=== PATIENT | female | born 1950 | race African-American/Black ===

== ENCOUNTER 2024-08-11 09:24 | Outpatient (AMB) | payer OTHER, SELFPAY ==
[2024-08-11 09:41] VITALS: BP 134/63; PULSE 86; O2SAT 96; BMI 38.4
--- NOTE | 2024-08-11 09:41 | MHC.OFFVIS ---
Vital Signs 08/11/24 09:41 Height 5 ft 2 in Weight 210 lb BMI 38.4 BP 134/63 Blood Pressure Location Lt brachial Position Sitting Pulse 86 Pulse Source Pulse Oximeter Pulse Oximetry (%) 96 Oxygen Delivery Method Room Air Intake Visit Reasons: Knee/ankle pain Dipper And Drier Required: Yes Dipper And Drier Services: Dipper And Drier Offered & Declined Dipper And Drier Name: Granddaughter lakshmi ramirez Information Interpreted: non-clinical & clinical Allergies morphine Allergy (Intermediate, Verified 08/11/24 09:43) Nausea pregabalin [From Lyrica] Allergy (Intermediate, Verified 08/11/24 09:43) Nausea PEANUT BUTTER Allergy (Mild, Uncoded 12/16/19 15:33) RASH DUST Allergy (Unknown, Uncoded 12/16/19 15:33) UNKNOWN HPI Comments Details: Gilda is very pleasant 74 years old female who presents in my office with complains on pain in bilateral knees and pain in the neck. Most of her problem is pain in the bilateral knees more on the left and less on the right. She reports that she is suffering from this condition more than 10 years. Walking standing aggravate her pain. She was diagnose with fibromyalgia and osteoarthritis. She was diagnose with fibromyalgia by Dr. Luisito Mcdonald. She was placed on opioids with this doctor however she missed an appointment and she was discharged from opioid program in that office. Because of her pain she can not sleep normally can not do activities of daily living can not take care of herself can not function normally. She is on permanent disability and retired. She needs walker or cane for ambulation. Cold applications weather changes in movements aggravate her pain and heat applications and oral medications make her pain better. Her pain is most severe in the morning and at night and less severe during the daytime. She reports her pain 9/10 to 10/10 today. In terms of tissue damage he describes her pain as hot burning, scalding, searing, dull, sore, hurting, aching, heavy, tiring, exhausting sensation. She had an MRI of the right knee but not the left knee. MRI of the right knee demonstrated meniscal tear. However patient complains on more pain on the left knee. She had very extensive course of physical therapy about 2 years ago. She was citing the improvement at that time. Now she stated that her pain is starting to get worse and she again is starting physical therapy and home exercise program. She received multiple intra-articular steroid injections into her knee and once she received something what she describes to me as platelet rich plasma injection. However she denies any help from those injections. Past medical history significant for hypertension, prediabetes, hemoglobin A1c equal to 6. She is suffering from COPD asthma and emphysema. Past surgical history: Cholecystectomy and uterine sling. Social history she denies smoking cigarettes drinking alcohol she admits caffeinated beverages but she denies recreational drugs. Review of Systems Const All systems reviewed & are unremarkable except as noted in HPI and below ENT Reports Normal hearing present Neuro Reports Normal hearing present, Denies Abnormal speech present, Denies confusion and Denies Sensory deficit (Neuro) Psych Denies confusion Physical Exam Vital Signs: Last Vital Signs Pulse 86 08/11/24 09:41 BP 134/63 08/11/24 09:41 Pulse Ox 96 08/11/24 09:41 Oxygen Delivery Method Room Air 08/11/24 09:41 BMI result Body Mass Index 38.4 Const General: no acute distress; No confusion Nutritional Appearance: obese morbidly obese Orientation/consciousness: patient oriented x3 and No confusion Eyes General: appearance normal, both eyes and all related structures Pupils: Equal, round and reactive pupils present EOM: EOMs intact bilaterally Neck Neck: Yes full ROM Chest Chest palpation & inspection: normal inspection of the chest Resp Effort & Inspection: normal respiratory effort, able to speak in complete sentences, normal respiratory pattern, no audible wheezes and no cough Cardio Jugular venous distension: no JVD GI Inspection: Yes normal to inspection Neuro General: patient oriented x3, gait normal and No confusion Cranial nerves: Yes CN's II-XII intact bilaterally, Yes Equal, round and reactive pupils present, Yes Normal hearing present and Yes Ability to bilaterally elevate shoulders present Speech: No Abnormal speech present Gait exam (Neuro): Normal gait present Motor exam (neuro): 5/5 motor strength present throughout Sensory Exam: No Sensory deficit (Neuro) Extrem Other: Good range of motion of bilateral knees. Tenderness on palpation on the surface of the left knee. On the exam medial and lateral collateral ligaments are stable, anterior and posterior drawers are negative. No crepitus on motion. General: No pedal edema Psych Speech and movement: Normal speech and movement present Affect: normal affect Attitude: cooperative Thought process: Normal thought process present Thought content: Normal thought content present Insight: Good insight present (Psych) Judgement: Good judgement present (Psych) Results Reviewed Results Reviewed: MRI right knee. Medial compartment motion partial limits evaluation but there is a complex tear involving the body and posterior horn of the medial meniscus, and associated with extrusion of the body, diffuse cartilage thinning, local areas of subchondral edema. Lateral compartment motion partly limits evaluation complex tear and willing body of the lateral meniscus. Diffuse cartilage thinning. No subchondral edema. Patellofemoral compartment or cartilage defects or subchondral edema. Tendons quadriceps patellar and popliteus tendons are intact. Ligaments anterior and posterior cruciate ligaments are intact. Medial collateral ligaments is intact. Intermediate signal intensity and mild irregularity [facility] of the proximal segment of the lateral collateral ligaments suggest sprint. Assessment & Plan Assessment & Plan (1) Osteoarthritis of knees, bilateral: Code(s): M17.0 - Bilateral primary osteoarthritis of knee Category: Medical (2) Bilateral knee pain: Code(s): M25.561 - Pain in right knee; M25.562 - Pain in left knee Category: Medical (3) Chronic pain syndrome: Code(s): G89.4 - Chronic pain syndrome Category: Medical Plan I will schedule this patient for diagnostic genicular nerve block on the left. With good results of the genicular nerve block I will perform radiofrequency ablation of the genicular nerves on the left. That could give patient 9 months to a year of pain relief. During this month she can engage with better exercise, diet, and request performance of total knee replacement. Coding Level of Care Code New Pt Level 3 (41482) Diagnoses Osteoarthritis of knees, bilateral M17.0 Bilateral knee pain M25.561; M25.562 Chronic pain syndrome G89.4
--- OUTSIDE RECORDS SUMMARY | 2024-08-11 09:56 | XMS_ITS ---
Author Name [facility] Organization Unknown History of Medication Use Medication Directions Dispensed Refills Start Date End Date Stat us diclofenac (VOLTAREN) 75 mg EC tablet Take 1 tablet (75 mg total) by mouth 2 (two) times a day if needed (pain). Do not crush, chew, or split. 06/23/2024 active predniSONE (DELTASONE) 20 mg tablet Take 60 mg PO daily for 3 days, then take 40 mg PO daily for 3 days, then 20 mg PO daily for 3 days, then stop 06/23/2024 active acetaminophen (Tylenol Arthritis Pain) 650 mg 8 hr tablet Take 1 tablet (650 mg total) by mouth every 8 (eight) hours if needed for mild pain. Do not crush, chew, or split. 06/02/2024 active albuterol 2.5 mg /3 mL (0.083 %) nebulizer solution Take 3 mL (2.5 mg total) by nebulization every 4 (four) hours if needed for wheezing. 06/02/2024 active albuterol HFA (Ventolin HFA) 90 mcg/actuation inhaler Inhale 2 puffs by mouth every 4 (four) hours if needed for wheezing. 06/02/2024 active sxyiueeoul-kxnzvssa-mvtm oterol (Breztri Aerosphere) 160-9-4.8 mcg/actuation HFA aerosol inhaler inhaler Inhale 2 puffs by mouth 2 (two) times a day. 06/02/2024 active omeprazole (PriLOSEC) [address] capsule TAKE 2 CAPSULES (40 MG TOTAL) BY MOUTH 1 (ONE) TIME EACH DAY. DO NOT CRUSH OR CHEW. 06/02/2024 active brinzolamide (AZOPT) 1 % ophthalmic suspension INSTILL 1 DROP INTO RIGHT EYE 3 TIMES A DAY 04/05/2024 active ketorolac (ACULAR) 0.5 % ophthalmic solution 1 drop 3 (three) times a day. 04/05/2024 active atorvastatin (LIPITOR) 10 mg tablet Take 1 tablet (10 mg total) by mouth 1 (one) time each day. 03/10/2024 active cholecalciferol (Vitamin D3) 50 mcg (2,000 unit) capsule Take 1 capsule (2,000 Units total) by mouth 1 (one) time each day. 03/10/2024 active amLODIPine (NORVASC) 5 mg tablet Take 1 tablet (5 mg total) by mouth 1 (one) time each day. 07/16/2023 active hydroCHLOROthiazide (MICROZIDE) 12.5 mg capsule Take 1 capsule (12.5 mg total) by mouth 1 (one) time each day. 07/16/2023 active valsartan (DIOVAN) 160 mg tablet Take 1 tablet (160 mg total) by mouth 1 (one) time each day. 07/16/2023 active loratadine (CLARITIN) 10 mg tablet Take 1 tablet (10 mg total) by mouth 1 (one) time each day. 06/03/2023 active sodium chloride (AYR) 0.65 % nasal drops Administer 1 spray into affected nostril(s). 03/20/2023 active EPINEPHrine (EpiPen 2-Jose Angel) 0.3 mg/0.3 mL injection Inject 0.3 mL (0.3 mg total) into the thigh. 02/28/2023 active latanoprost (XALATAN) 0.005 % ophthalmic solution Administer 1 drop into affected eye(s). 02/07/2023 active vibegron (Gemtesa) 75 mg tablet tablet Take 1 tablet (75 mg total) by mouth 1 (one) time each day. 02/07/2023 active ferrous sulfate 325 mg (65 mg iron) EC tablet Take 1 tablet (325 mg total) by mouth 1 (one) time each day. 07/04/2022 active hydrocortisone 2.5 % cream Apply to are bid as needed 10/16/2020 active LORazepam (ATIVAN) 1 mg tablet 1 tablet (1 mg total). 03/27/2018 active Problems Problem Status Onset Date Problem Type Date of Resoluti on Source Chronic obstructive pulmonary disease ([facility] V24, [facility] V28) active 2017-09-08 ProblemAct [facility] Fibromyalgia active 2012-08-17 ProblemAct [facility] Osteoporosis active 2023-05-26 ProblemAct [facility] Chronic kidney disease active 2024-05-04 ProblemAct [facility] Internal hemorrhoids active 2023-02-07 ProblemAct [facility] Chronic pain of both knees active 2023-02-07 ProblemAct [facility] Cervical neuropathy active 2023-10-01 ProblemAct [facility] Emphysema/COPD ([facility] V24, [facility] V28) active 2024-05-04 ProblemAct [facility] Rhinitis active 2023-06-03 ProblemAct [facility] Gait instability active 2023-01-09 ProblemAct C T_THS[facility] Gastroparesis active 2023-12-03 ProblemAct [facility] Obesity (BMI 30-39.9) active 2023-06-03 ProblemAct [facility] Glaucoma active 2024-05-04 ProblemAct [facility] Hepatic hemangioma active 2018-05-13 ProblemAct [facility] Primary osteoarthritis of right knee active 2023-01-09 ProblemAct [facility] Iron deficiency active 2023-12-[address] [facility] Cyst of left kidney active 2023-12-03 ProblemAct [facility] Mixed hyperlipidemia active 2023-08-23 ProblemAct [facility] Chronic pain of both shoulders active 2023-02-07 ProblemAct [facility] Tubular adenoma active 2023-02-[address] [facility] Chronic bilateral low back pain with bilateral sciatica active 2023-12-03 ProblemAct [facility] Severe obesity (BMI 35.0-39.9) with comorbidity ([facility] V24, [facility] V28) active 2020-08-15 ProblemAct [facility] Chronic pain of both hips active 2023-12-03 ProblemAct [facility] Pulmonary nodules active 2017-07-28 ProblemAct [facility] Anxiety active 2012-09-14 ProblemAct [facility] Right ovarian cyst active 2024-05-04 ProblemAct [facility] Overactive bladder active 2023-02-07 ProblemAct [facility] Primary osteoarthritis of left knee active 2020-08-15 ProblemAct [facility] Angiodysplasia of colon active 2023-02-07 ProblemAct [facility] Depression active 2024-05-04 ProblemAct [facility] Urge incontinence active 2023-02-07 ProblemAct [facility] Abdominal pain active 2023-06-03 ProblemAct [facility] Hypertension active 2024-05-04 ProblemAct [facility] Chronic neck pain active 2023-10-01 ProblemAct [facility] Asthma active 2024-05-04 ProblemAct [facility] Vitamin D deficiency active 2023-12-03 ProblemAct [facility] GERD (gastroesophageal reflux disease) active 2023-05-26 ProblemAct [facility] Diabetes mellitus without complication ([facility] V24, [facility] V28) active 2024-01-05 ProblemAct [facility] Immunizations Vaccine Date Source Lot Number Status Respiratory syncytial virus (RSV), unspecified 09/17/2023 [facility] [id number] completed Zoster recombinant (Shingrix ) 19yo and older 09/17/2023 [facility] [id number] completed Influenza trivalent, 0.5mL ( Fluzone High-dose) 65yo and older 02/07/2023 [facility]_THS[facility] [id number] comple chuy Influenza trivalent, 0.5mL ( Fluzone High-dose) 65yo and older 02/22/2022 [facility] [id number] comple chuy Pneumococcal polysaccharide 23 valent (Pneumovax 23) 2yo and older 04/26/2021 [facility] [id number] com pleted Influenza trivalent, 0.5mL ( Fluzone High-dose) 65yo and older 12/09/2019 [facility] [id number] comple chuy Pneumococcal conjugate 13 va lent (Prevnar 13, PCV13) 2mo and older 12/09/2019 [facility] [id number] complet ed Pneumococcal conjugate 13 va lent (Prevnar 13, PCV13) 2mo and older 02/10/2017 [facility] [id number] complet ed Influenza trivalent, with pr eservative (Fluzone; Afluria) 6mo and older 01/16/2016 [facility] [id number] completed Tdap Tetanus diptheria acell ular pertussis (Boostrix; Adacel) 7yo and older 07/07/2014 [facility] [id number] completed Pneumococcal polysaccharide 23 valent (Pneumovax 23) 2yo and older 01/23/2012 [facility] com pleted Influenza trivalent, with pr eservative (Fluzone; Afluria) 6mo and older 12/09/2011 [facility] completed
--- OUTSIDE RECORDS SUMMARY | 2024-08-11 09:56 | XMS_ITS | Encounter Summary ---
Author Organization [facility] Address [address] [place] [address] Care Team Providers Care Pool Finisher Name Role Phone Sherrie Valadez MD Primary Care Provider Reason for Visit * Reason Onset Date Comments Med Refill 07/07/2024 Zepbound w/ titr ation Encounter Details Date Type Department Care Team (Late st Contact Info) Description 07/07/2024 Telephone Bariatric Surgery - [place] [address] [place] [phone] La Ruth MD [address] [facility] [address] [place] [address] Med Refill (Zepbound w/ titration) Social History Tobacco Use Types Packs/Day Years Used Date Smoking Tobacco: Former Cigarettes Q uit: 08/03/2002 Smokeless Tobacco: Never Alcohol Use Standard Drinks/Week Comments No 0 (1 standard drink = 0.6 oz pur e alcohol) Comments Unknown Sex and Gender Information Value Date Recorded Sex Assigned at Not on file Legal Sex Female 2:32 PM EDT Gender Identity Not on file Sexual Orientation Not on file documented as of this encounter Progress Notes * Zaida Barrera - 07/07/2024 1:37 PM EDT Patient did well on Zepbound 2.5 mgs and would like a refill with titration. If appropriate, please send script for Zepbound 5 mgs to their pharmacy. The patient does have a follow up in 10/05/2024 documented in this encounter Plan of Treatment Upcoming Encounters Date Type Department Care Team (Late st Contact Info) Description 08/11/2024 12:30 PM EDT Treatment [facility] [address] [phone] Antoni Estrella, PHARMACY COORDINATOR 08/16/2024 11:30 AM EDT Treatment [facility] [address] [phone] Yvette Campuzano, PT 08/18/2024 10:15 AM EDT Office Visit Orthopedic Surgery [facility] 250 175 [facility] 250 [place] [phone] Renan Coles DPM [address] [address] 09/08/2024 8:30 AM EDT Office Visit Pulmonolgy [facility] 175 [facility] 200 [place] [phone] Annabelle Gross NP [address] [facility] 200 [place] [address] 10/05/2024 2:15 PM EDT Office Visit Bariatric Surgery [facility] [address] [phone] La Ruth MD [address] [address] 12/08/2024 9:30 AM EDT Office Visit Adult Medicine [address] [phone] Sherrie Valadez MD [address] [place] [address] 06/08/2025 8:00 AM EDT Office Visit Adult Medicine [facility] [address] [place] [phone] Sherrie Valadez MD 444 [facility] [place] [address] documented as of this encounter Visit Diagnoses Not on filedocumented in this encounter Additional Health Concerns Assessment Noted Time PHQ-9 Depression Total Score: 2 06/03/19 25 11:36 AM EST documented as of this encounter Care Teams Pool Finisher Relationship Specialty Start Date End Date Sherrie Valadez MD [address] [place] [address] PCP - General 12/24/22 documented as of this encounter
--- OUTSIDE RECORDS SUMMARY | 2024-08-11 09:56 | XMS_ITS | Encounter Summary ---
Author Organization [facility] Address [address] [place] [address] Care Team Providers Care Successfactors Consultant Name Role Phone Sherrie Valadez MD Primary Care Provider Reason for Visit * Reason Onset Date Comments Fitting for DME 08/02/2024 Encounter Details Date Type Department Care Team (Late st Contact Info) Description 08/02/2024 Telephone Adult Medicine [facility] [address] [place], [place] [phone] Sherrie Valadez MD [address] [place] [address] Fitting for DME Social History Tobacco Use Types Packs/Day Years [...] as of this encounter Progress Notes * Krystal Pascual - 08/02/2024 9:35 AM EDT DME REQUEST Name of Product: Medium gloves 2 box a month Pull up size medium 6 a day Hand held shower head Wipes 3 packs per month Bed pads 3 a day Specific information about product # Needed Pull up size medium 6 a day Hand held shower head Wipes 3 packs per month Bed pads 3 a day Reason patient is asking for this supply? Have you received this supply before? If yes , when?: Yes. v Have you discussed the need for this supply with a provider at a recent visit? If yes, with who andwhen? No When completed: Fax to other office/MD/pharmacy at fax # [phone] Have you told the patient it will take 7-10 days for completion of this request? Yes documented in this encounter Plan of Treatment Upcoming Encounters Date Type Department Care Team (Late st Contact Info) Description 08/11/2024 12:30 PM EDT Treatment [facility] [address] [phone] Antoni Estrella, LU 08/16/2024 11:30 AM EDT Treatment [facility] [address] [phone] Yvette Campuzano, PT 08/18/2024 10:15 AM EDT Office Visit Orthopedic Surgery [facility] 250 175 [facility] 250 [place] [phone] Renan Coles, DPM 175 [facility] 250 [place] [address] 09/08/2024 8:30 AM EDT Office Visit Pulmonolgy [facility] 175 [facility] 200 [place] [phone] Annabelle Gross NP 175 [facility] 200 [place] [address] 10/05/2024 2:15 PM EDT Office Visit Bariatric Surgery - [place] 175 [facility] 120 [place] [phone] La Ruth MD [address] [address] 12/08/2024 9:30 AM EDT Office Visit [address] [phone] Sherrie Valadez MD 444 [place], [place] 06/08/2025 8:00 AM EDT Office Visit [address] [phone] Sherrie Valadez MD [address] [place], [place] documented as of this encounter Visit Diagnoses Not on filedocumented in this encounter Additional Health Concerns Assessment Noted Time PHQ-9 Depression Total Score: 2 06/03/19 25 11:36 AM EST documented as of this encounter Care Teams Successfactors Consultant Relationship Specialty Start Date End Date Sherrie Valadez MD [address] [place], [place] PCP - General 12/24/22 documented as of this encounter
--- OUTSIDE RECORDS SUMMARY | 2024-08-11 09:56 | XMS_ITS | Encounter Summary ---
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 Name Role Phone Sherrie Valadez MD Primary Care Provider [phone] Reason for Visit * Consultation (Routine) - Authorized Specialty Diagnoses / Procedures Referred By Matthew schaffer Referred To Contact Physical Therapy Diagnoses Cervicalgia Chronic pain of both knees Sherrie Valadez MD [address] [place] [id number] Phone: tel: fax: Referral ID Status Reason Start Date Expiration Date Visits Requested Visits Authorized [id number] Authorized Specialty Services Required 06/02/2024 06/02/2025 20 20 Encounter Details Date Type Department Care Team (Late st Contact Info) Description 08/09/2024 9:00 AM EDT Treatment [facility] Outpatient Rehabilitation [facility] [address] [place] [address] Antoni Estrella PTA Cervicalgia (Primary Dx) Social History Tobacco Use Types Packs/Day Years [...] as of this encounter Progress Notes * Antoni Estrella PTA - 08/09/2024 9:00 AM EDT [facility] - Outpatient PHYSICAL THERAPY DAILY TREATMENT NOTE - OP Date: 08/09/2024 Visit Number: [id number] Patient Name: Gilda Saleem : 1950 Age: 74 y.o. Gender: female Diagnosis: ICD-10-CM ICD-9-CM 1. Cervicalgia M54.2 723.1 Date of Onset/Surgery: 07/15/2023 Referring Provider: Sherrie Valadez MD Insurance: Payor: [facility] MED[facility] / Plan: [facility] CARE / Product Type: *No Product type* / Patient Identified by: Antoni Estrella PTA Language: Pt. 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 Medications: Current Outpatient Medications on File Prior to Visit Medication Sig Dispense Refill acetaminophen (Tylenol Arthritis Pain) 650 mg 8 hr tablet Take 1 tablet (650 mg total) by mouth every 8 (eight) hours if needed for mild pain. Do not crush, chew, or split. 90 tablet 1 albuterol 2.5 mg /3 mL (0.083 %) nebulizer solution Take 3 mL (2.5 mg total) by nebulization every 4 (four) hours if needed for wheezing. 300 mL 1 albuterol HFA (Ventolin HFA) 90 mcg/actuation inhaler Inhale 2 puffs by mouth every 4 (four) hours if needed for wheezing. 36 g 5 amLODIPine (NORVASC) 5 mg tablet Take 1 tablet (5 mg total) by mouth 1 (one) time each day. 90 tablet 0 atorvastatin (LIPITOR) 10 mg tablet Take 1 tablet (10 mg total) by mouth 1 (one) time each day. 90 tablet 0 brinzolamide (AZOPT) 1 % ophthalmic suspension INSTILL 1 DROP INTO RIGHT EYE 3 TIMES A DAY nomokgwqgn-psocptru-mrlcdtccvt (Breztri Aerosphere) 160-9-4.8 mcg/actuation HFA aerosol inhaler inhaler Inhale 2 puffs by mouth 2 (two) times a day. 32.1 g 11 cholecalciferol (Vitamin D3) 50 mcg (2,000 unit) capsule Take 1 capsule (2,000 Units total) by mouth 1 (one) time each day. 90 each 3 diclofenac (VOLTAREN) 75 mg EC tablet Take 1 tablet (75 mg total) by mouth 2 (two) times a day if needed (pain). Do not crush, chew, or split. 90 tablet 0 EPINEPHrine (EpiPen 2-Jose Angel) 0.3 mg/0.3 mL injection Inject 0.3 mL (0.3 mg total) into the thigh. ferrous sulfate 325 mg (65 mg iron) EC tablet Take 1 tablet (325 mg total) by mouth 1 (one) time each day. hydroCHLOROthiazide (MICROZIDE) 12.5 mg capsule Take 1 capsule (12.5 mg total) by mouth 1 (one) time each day. 90 capsule 0 hydrocortisone 2.5 % cream Apply to are bid as needed ketorolac (ACULAR) 0.5 % ophthalmic solution 1 drop 3 (three) times a day. latanoprost (XALATAN) 0.005 % ophthalmic solution Administer 1 drop into affected eye(s). loratadine (CLARITIN) 10 mg tablet Take 1 tablet (10 mg total) by mouth 1 (one) time each day. LORazepam (ATIVAN) 1 mg tablet 1 tablet (1 mg total). omeprazole (PriLOSEC) [address] capsule TAKE 2 CAPSULES (40 MG TOTAL) BY MOUTH 1 (ONE) TIME EACH DAY. DO NOT CRUSH OR CHEW. 180 capsule 0 predniSONE (DELTASONE) 20 mg tablet Take 60 mg PO daily for 3 days, then take 40 mg PO daily for 3 days, then 20 mg PO daily for 3 days, then stop 18 tablet 0 sodium chloride (AYR) 0.65 % nasal drops Administer 1 spray into affected nostril(s). [] tirzepatide, weight loss, (Zepbound) 5 mg/0.5 mL injection Inject 0.5 mL (5 mg total) under the skin every 7 (seven) days for 28 days. 2 mL 0 valsartan (DIOVAN) 160 mg tablet Take 1 tablet (160 mg total) by mouth 1 (one) time each day. 90 tablet 0 vibegron (Gemtesa) 75 mg tablet tablet Take 1 tablet (75 mg total) by mouth 1 (one) time each day. No current facility-administered medications on file prior to visit. Allergies: is allergic to dog dander, doxycycline, morphine, peanut, pollen extracts, and pregabalin. Precautions: none Fall risk: No SUBJECTIVE Subjective Report: Patient reports back of neck still bothering her. Chart Reviewed: Yes Pain: 10/07 after manual therapy today. Over weekend 01/07 due to doing a lot of mothers day prepping. TREATMENT INTERVENTION: UBE 2 mins forward/backwards L1.5 Standing Scapula rowing 10 reps with [place] Band Horizontal Abd with [place] Tband 10 rps Wall slides flexion 5 sec hold 2 x 10 reps Manual Therapy STM B UT and neck. ASSESSMENT/Response to Treatment Good response post manual therapy. Patient Education: Education provided: yes Education Provided To: Patient utilizing Explanation mode(s) of education Response to Education: Verbal Understanding PLAN POC Development/Review: No Change in the Plan of Care; Participants: Patient Interventions Time Entry: Modalities: Therapeutic procedures: Manual Therapy Time Entry: 10 Therapeutic Exercise Time Entry: 20 Total Treatment Time: 30 mins Documentation completed by Antoni Estrella PTA documented in this encounter Plan of Treatment Upcoming Encounters Date Type Department Care Team (Late st Contact Info) Description 08/11/2024 12:30 PM EDT Treatment [address] [phone] Antoni Estrella PTA 08/16/2024 11:[address] [facility] [address] [phone] Yvette Campuzano PT 08/18/2024 10:15 AM EDT Office Visit Orthopedic Surgery [place] [address] [phone] Renan Coles DPM [address] [address] 09/08/2024 8:30 AM EDT Office Visit Pulmonolgy - [place] [facility] [address] [place] [phone] Annabelle Gross NP 175 [facility] [address] [place] [address] 10/05/2024 2:15 PM EDT Office Visit Bariatric Surgery - [place] [facility] [address] [place] [address] La Ruth MD 175 [facility] [address] [place] [address] 12/08/2024 9:30 AM EDT Office Visit Adult [address] [phone] Sherrie Valadez MD [address] [place], [place] 06/08/2025 8:00 AM EDT Office Visit Adult [address] [phone] Sherrie Valadez MD [address] [place], [place] documented as of this encounter Visit Diagnoses Diagnosis Cervicalgia- Primary documented in this encounter Additional Health Concerns Assessment Noted Time PHQ-9 Depression Total Score: 2 06/03/19 25 11:36 AM EST documented as of this encounter Care Teams Box 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
--- OUTSIDE RECORDS SUMMARY | 2024-08-11 09:56 | XMS_ITS | Clinical Summary ---
Author Organization [facility] Address [address] [place] [address] Care Team Providers Care Psychologist Personnel Name Role Phone Sherrie Fields MD Primary Care Provider Allergies Active Allergy Reactions Criticality Noted Date Comments Dog Dander 05/26/2023 Other reaction(s): sneezing Doxycycline Nausea Only 01/05/2024 Morphine Itching 05/27/2017 Peanut Hives 12/23/2017 Pollen Extracts 05/26/2023 Other reaction(s): itch Pregabalin 05/27/2017 Heartracing Medications EPINEPHrine (EpiPen 2-Jose Angel) 0.3 mg/0.3 mL injection Inject 0.3 mL (0.3 mg total) into the thigh. 02/29/20 23 Active ferrous sulfate 325 mg (65 mg iron) EC tablet Take 1 tablet (325 mg total) by mouth 1 (one) time each day. 07/05/19 23 Active hydrocortisone 2.5 % cream Apply to are bid as needed 10/17/19 21 Active latanoprost (XALATAN) 0.005 % ophthalmic solution Administer 1 drop into affected eye(s). 02/08/20 23 Active LORazepam (ATIVAN) 1 mg tablet 1 tablet (1 mg total). 03/27/20 18 Active sodium chloride (AYR) 0.65 % nasal drops Administer 1 spray into affected nostril(s). 03/20/20 23 Active vibegron (Gemtesa) 75 mg tablet tablet Take 1 tablet (75 mg total) by mouth 1 (one) time each day. 02/08/20 23 Active loratadine (CLARITIN) 10 mg tablet Take 1 tablet (10 mg total) by mouth 1 (one) time each day. 06/03/19 24 Active atorvastatin (LIPITOR) 10 mg tablet Take 1 tablet (10 mg total) by mouth 1 (one) time each day. 90 tablet 03/10/20 24 Active cholecalciferol (Vitamin D3) 50 mcg (2,000 unit) capsule Take 1 capsule (2,000 Units total) by mouth 1 (one) time each day. 90 each 3 03/10/20 24 Active ketorolac (ACULAR) 0.5 % ophthalmic solution 1 drop 3 (three) times a day. 04/05/19 25 Active brinzolamide (AZOPT) 1 % ophthalmic suspension INSTILL 1 DROP INTO RIGHT EYE 3 TIMES A DAY 04/05/19 25 Active omeprazole (PriLOSEC) [address] capsule TAKE 2 CAPSULES (40 MG TOTAL) BY MOUTH 1 (ONE) TIME EACH DAY. DO NOT CRUSH OR CHEW. 180 capsule 06/03/19 25 025 Active budesonide-glyc opyr-formoterol (Breztri Aerosphere) 160-9-4.8 mcg/actuation HFA aerosol inhaler inhalerIndicati ons:Chronic obstructive pulmonary disease with acute lower respiratory infection (CMS/HCC V24, CMS/HCC V28) Inhale 2 puffs by mouth 2 (two) times a day. 32.1 g 11 06/03/19 25 026 Active albuterol 2.5 mg /3 mL (0.083 %) nebulizer solutionIndicat ions:Chronic obstructive pulmonary disease with acute lower respiratory infection (CMS/HCC V24, CMS/HCC V28) Take 3 mL (2.5 mg total) by nebulization every 4 (four) hours if needed for wheezing. 300 mL 1 06/03/19 25 025 Active albuterol HFA (Ventolin HFA) 90 mcg/actuation inhalerIndicati ons:Chronic obstructive pulmonary disease with acute lower respiratory infection ([facility] V24, [facility] V28) Inhale 2 puffs by mouth every 4 (four) hours if needed for wheezing. 36 g 5 06/03/19 25 025 Active acetaminophen (Tylenol Arthritis Pain) 650 mg 8 hr tablet Take 1 tablet (650 mg total) by mouth every 8 (eight) hours if needed for mild pain. Do not crush, chew, or split. 90 tablet 1 06/03/19 25 025 Active predniSONE (DELTASONE) 20 mg tablet Take 60 mg PO daily for 3 days, then take 40 mg PO daily for 3 days, then 20 mg PO daily for 3 days, then stop 18 tablet 06/24/19 25 Active diclofenac (VOLTAREN) 75 mg EC tablet Take 1 tablet (75 mg total) by mouth 2 (two) times a day if needed (pain). Do not crush, chew, or split. 90 tablet 06/24/19 25 Active amLODIPine (NORVASC) 5 mg tablet Take 1 tablet (5 mg total) by mouth 1 (one) time each day. 90 tablet 07/21/19 25 Active hydroCHLOROthia zide (MICROZIDE) 12.5 mg capsule Take 1 capsule (12.5 mg total) by mouth 1 (one) time each day. 90 capsule 07/21/19 25 Active valsartan (DIOVAN) 160 mg tablet Take 1 tablet (160 mg total) by mouth 1 (one) time each day. 90 tablet 07/21/19 25 Active amLODIPine (NORVASC) 5 mg tablet Take 1 tablet (5 mg total) by mouth 1 (one) time each day. 07/16/19 24 025 Discontinu ed(Reorder ) hydroCHLOROthia zide (MICROZIDE) 12.5 mg capsule Take 1 capsule (12.5 mg total) by mouth 1 (one) time each day. 07/16/19 24 025 Discontinu ed(Reorder ) valsartan (DIOVAN) 160 mg tablet Take 1 tablet (160 mg total) by mouth 1 (one) time each day. 07/16/19 24 025 Discontinu ed(Reorder ) tirzepatide, weight loss, (Zepbound) 5 mg/0.5 mL injection Inject 0.5 mL (5 mg total) under the skin every 7 (seven) days for 28 days. 2 mL 07/10/19 25 025 Active Problems Problem Noted Date Diagnosed Date Asthma 05/04/2024 Chronic kidney disease 05/04/2024 Depression 05/04/2024 Glaucoma 05/04/2024 Hypertension 05/04/2024 Right ovarian cyst 05/04/2024 Emphysema/COPD ([facility] V24, [facility] V28) 2024 Diabetes mellitus without co mplication ([facility] V24, [facility] V28) 01/05/2024 Cyst of left kidney 12/03/2023 Gastroparesis 12/03/2023 Iron deficiency 12/03/2023 Vitamin D deficiency 12/03/2023 Chronic bilateral low back pain with bilateral s ciatica 12/03/2023 Chronic pain of both hips 12/03/2023 Chronic neck pain 10/01/2023 Cervical neuropathy 10/01/2023 Mixed hyperlipidemia 08/23/2023 Rhinitis 06/03/2023 Obesity (BMI 30-39.9) 06/03/2023 Abdominal pain 06/03/2023 Essential hypertension, benign 05/26/2023 GERD (gastroesophageal reflux disease) Osteoporosis 05/26/2023 Angiodysplasia of colon 02/07/2023 Chronic pain of both knees 02/07/2023 Chronic pain of both shoulders 02/07/2023 Internal hemorrhoids 02/07/2023 Overactive bladder 02/07/2023 Tubular adenoma 02/07/2023 Urge incontinence 02/07/2023 Gait instability 01/09/2023 Primary osteoarthritis of right knee 01/09/2023 Primary osteoarthritis of left knee 08/15/2020 Severe obesity (BMI 35.0-39. 9) with comorbidity ([facility] V24, [facility] V28) 08/15/2020 Hepatic hemangioma 05/13/2018 Chronic obstructive pulmonar y disease ([facility] V24, [facility] V28) 09/08/2017 Pulmonary nodules 07/28/2017 Overview (05/26/2023): CT Chest 07/28/18: Stable Pulmonary Nodules. No further workup needed. Anxiety 09/14/2012 Overview (05/26/2023): On chronic lorazepam Fibromyalgia 08/17/2012 Overview (05/26/2023): Lyirca caused palpitations. Gabapentin caused nausea Encounters Date Type Department Care Team Description 08/09/2024 9:00 AM EDT Treatment [address] [phone] Antoni Estrella PTA Cervicalgia (Primary Dx) 08/04/2024 9:30 AM EDT Treatment [address] [phone] Antoni Estrella PTA Cervicalgia (Primary Dx) 08/02/2024 11:00 AM EDT Treatment [address] [phone] Yvette Campuzano, PT Cervicalgia (Primary Dx) 08/02/2024 Telephone Adult Medicine [address] [phone] Sherrie Fields MD Fitting for DME 07/30/2024 12:30 PM EDT Treatment [address] [phone] Antoni Estrella PTA Cervicalgia (Primary Dx) 07/28/2024 9:30 AM EDT Treatment [address] [phone] Antoni Estrella PTA Cervicalgia (Primary Dx) 07/14/2024 12:30 PM EDT Evaluation [address] [phone] Yvette Campuzano, PT Cervicalgia (Primary Dx); Chronic pain of both knees 07/07/2024 Telephone Bariatric Surgery - [place] [address] [place] [phone] La Ruth MD Med Refill (Zepbound w/ titration) 07/07/2024 Telephone Orthopedic Surgery - [place] [address] [place] [phone] Reyna Girard NP Referral 06/30/2024 9:01 AM EDT - 06/30/2024 11:59 PM EDT Hospital Encounter Radiology Department - [address] [phone] Other chronic pain; Chronic pain of right knee Discharge Disposition: Home or Self Care 06/30/2024 9:01 AM EDT - 06/30/2024 11:59 PM EDT Hospital Encounter Radiology Department - [address] [phone] Other chronic pain; Pain in left knee Discharge Disposition: Home or Self Care 06/23/2024 10:30 AM EDT Office Visit Adult Medicine [address] [phone] Sherrie Fields MD Chronic pain of right knee (Primary Dx); Chronic pain of left knee; Hyperlipidemia, unspecified hyperlipidemia type; Gastroesophageal reflux disease, unspecified whether esophagitis present 06/21/2024 Telephone Adult Medicine [address] [phone] Sherrie Fields MD Knee Pain 06/02/2024 1:00 PM EST Office Visit Pulmonolgy - [place] [address] [facility] [address] [place] [phone] Annabelle Gross NP Chronic obstructive pulmonary disease with acute lower respiratory infection (CMS/HCC V24, CMS/HCC V28) (Primary Dx); Pulmonary nodules; Morbid obesity (CMS/HCC V24, CMS/HCC V28) 06/02/2024 10:00 AM EST Office Visit Adult Medicine [address], [place] [phone] Sherrie Fields MD Routine general medical examination at a health care facility (Primary Dx); Diabetes mellitus without complication ([facility] V24, [facility] V28); Gastroesophageal reflux disease, unspecified whether esophagitis present; Cervicalgia; Chronic pain of both knees 06/01/2024 11:00 AM EST Office Visit Bariatric Surgery - [place] [facility] [address] [place] [address] La Ruth MD Class 3 severe obesity due to excess calories with serious comorbidity and body mass index (BMI) of 40.0 to 44.9 in adult ([facility] V24, [facility] V28) (Primary Dx); Essential hypertension, benign; Mixed hyperlipidemia; Primary osteoarthritis of left knee; Primary osteoarthritis of right knee; Elevated hemoglobin A1c; Fatty liver 05/25/2024 Telephone Adult Medicine [facility] [address] [place] [phone] Sherrie Fields MD Forms/questionnaires 05/14/2024 Telephone Gastroenterology [address] [facility] [address] [place] [address] Maria Antonia Aguirre MA from Last 3 Months Immunizations Name Administration Dates Next Due Influenza trivalent, 0.5mL ( Fluzone High-dose) 65yo and older 02/07/2023,02/22/2022,12/09/2019 Influenza trivalent, with pr eservative (Fluzone; Afluria) 6mo and older 01/16/2016,12/09/2011 Pneumococcal conjugate 13 va lent (Prevnar 13, PCV13) 2mo and older 12/09/2019,02/10/2017 Pneumococcal polysaccharide 23 valent (Pneumovax 23) 2yo and older 04/26/2021,01/23/2012 Respiratory syncytial virus (RSV), unspecified 09/17/2023 Tdap Tetanus diptheria acell ular pertussis (Boostrix; Adacel) 7yo and older 07/07/2014 Zoster recombinant (Shingrix ) 19yo and older 09/17/2023 Surgical History Surgery Date Site/Laterality Comments CHOLECYSTECTOMY PROCEDURE: HISTORICAL CHOLECYSTECTOMY LEG SURGERY PROCEDURE: HISTORICAL LEG SURGERY; COMMENT: removal of benign tumor TUBAL LIGATION PROCEDURE: HISTORICAL TUBAL LIGATION Medical History Medical History Date Comments Historical Medical DX DX:Emphyse ma Osteoporosis DX:Osteoporosis Type II or unspecified type diabetes mellitus without mention of complication, uncontrolled DX:Type II or unspecified t ype diabetes mellitus without mention of complication, uncontrolled Essential hypertension, benign D X:Essential hypertension, benign GERD (gastroesophageal reflux disease) DX:GERD (gastroesophageal reflux disease) Osteoarthritis of left knee 08/15/2020 DX:O steoarthritis of left knee Family History Medical History Relation Name Comments Hypertension Father Heart attack Mother Breast cancer Other niece dx 41s Diabetes Sister Arthritis Son Relation Name Status Comments Father Mother Other niece dx 41s Alive Sister Son Social History Tobacco Use Types Packs/Day Years Used Date Smoking Tobacco: Former Cigarettes Q uit: 08/03/2002 Smokeless Tobacco: Never Tobacco Cessation:Counseling Given: Not Answered Alcohol Use Standard Drinks/Week Comments No 0 (1 standard drink = 0.6 oz pur e alcohol) Comments Unknown Sex and Gender Information Value Date Recorded Sex Assigned at Not on file Legal Sex Female 2:32 PM EDT Gender Identity Not on file Sexual Orientation Not on file Obstetrics History Last Filed Vital Signs Vital Sign Reading Time Taken Comments Blood Pressure 134/76 06/23/2024 10:36 AM EDT Pulse 87 06/23/2024 10:36 AM EDT Temperature 36.5 ??C (97.7 ??F) 06/23/2024 10:36 AM E DT Respiratory Rate 12 06/23/2024 10:36 AM EDT Oxygen Saturation 97% 06/02/2024 1:06 PM EST Inhaled Oxygen Concentration - - Weight 97.1 kg (214 lb) 07/21/2024 10:20 AM EDT Height 154.9 cm (5' 0.98 ) 07/21/2024 10:20 AM E DT Body Mass Index 40.46 07/21/2024 10:20 AM EDT Plan of Treatment Upcoming Encounters Date Type Department Care Team (Late st Contact Info) Description 08/11/2024 12:30 PM EDT Treatment [address] [phone] Antoni Estrella PTA 08/16/2024 11:30 AM EDT Treatment [facility] [place] [address] [facility] [address] [place] [phone] Yvette Campuzano, PT 08/18/2024 10:15 AM EDT Office Visit Orthopedic Surgery - [place] [address] [facility] [address] [place] [phone] Renan Coles, DPM [address] [facility] [address] [place] [address] 09/08/2024 8:30 AM EDT Office Visit Pulmonolgy - [place] [facility] [address] [place] [phone] Annabelle Gross NP 175 [facility] [address] [place] [address] 10/05/2024 2:15 PM EDT Office Visit Bariatric Surgery - [place] [address] [facility] [address] [place] [phone] La Ruth MD 175 [facility] [address] [place] [address] 12/08/2024 9:30 AM EDT Office Visit Adult Medicine [address] [phone] Sherrie Fields MD [address] [place] [phone] 06/08/2025 8:00 AM EDT Office Visit Adult Medicine [address] [phone] Sherrie Fields MD [address] [place] [address] Health Maintenance Due Date Last Done Comments RSV Immunization Adult Patients (1 - Risk 60-74 years 1-dose series) 2012 09/17/2023 Diabetes: Annual Foot Exam 04/08/2019 04/08/2018 COVID-19 Vaccine (3 - Pfizer risk series) 09/19/2020 08/22/2020, 08/01/2020 Diabetes: Annual Retina Eye Exam 02/13/2022 02/13/2021 Social Influencers of Health Screening 12/06/2022 Zoster Vaccines (2 of 2) 11/12/2023 09/17/2023 Diabetes: Annual Urine Albumin-Creatinine Ratio (uACR) 06/02/2024 06/03/2023, 05/26/2023 DTaP,Tdap,and Td Vaccines (2 - Td or Tdap) 07/07/2024 07/07/2014 Diabetes: Blood Sugar Control Test (HGBA1C) 10/12/2024 04/14/2024, 12/04/2023, 12/04/2023, Additional history exists Influenza Vaccine (Season Ended) 2024 02/07/2023, 02/22/2022, 12/09/2019, Additional history exists Diabetes: Annual GFR (Glomerular Filtration Rate) 12/03/2024 12/04/2023, 12/04/2023, 12/04/2023, Additional history exists Hypertension/CHF/CAD Annual BMP Blood Test 12/03/2024 12/04/2023, 12/04/2023, 01/06/2022 Breast Cancer Screening 12/11/2024 12/12/19 23, 11/07/2021, 12/13/2019, Additional history exists Depression Screening 06/02/2025 06/02/2024, 06/03/2023, 06/03/2023 Falls Risk Assessment 06/02/2025 06/02/2024, 024 Medicare Annual Wellness Visit 06/02/2025 06/02/2024 Cholesterol Screening (Lipid Panel) 04/14/2029 04/14/2024, 05/26/2023, 05/26/2023 Colorectal Cancer Screening: Colonoscopy 11/14/2032 11/14/2022, 11/14/2022 Osteoporosis Screening (Bone Density Screening) 12/09/2032 12/09/2022, 11/07/2021 Hepatitis C Screening Completed 04/14/2018 Pneumococcal Vaccine: 50+ Years Completed 04/26/2021, 12/09/2019, 02/10/2017, Additional history exists RSV Immunization Patients Under 20 months Aged Out 09/17/2023 No longer eligible based on patient's age to complete this topic HIB Vaccines Aged Out No longer eligi ble based on patient's age to complete this topic HPV Vaccines Aged Out No longer eligi ble based on patient's age to complete this topic Hepatitis A Vaccines Aged Out No long er eligible based on patient's age to complete this topic Hepatitis B Vaccines Aged Out No long er eligible based on patient's age to complete this topic IPV Vaccines Aged Out No longer eligi ble based on patient's age to complete this topic MMR Vaccines Aged Out No longer eligi ble based on patient's age to complete this topic Meningococcal ACWY Vaccine Aged Out N o longer eligible based on patient's age to complete this topic Meningococcal B Vaccine Aged Out No l onger eligible based on patient's age to complete this topic Varicella Vaccines Aged Out No longer eligible based on patient's age to complete this topic Procedures Procedure Name Priority Date/Time Associated Diagnosis Comments MR KNEE WO CONTRAST LEFT Routine 06/30/2024 10:17 AM EDT Other chronic pain Pain in left knee MR KNEE WO CONTRAST RIGHT Routine 06/30/2024 9:55 AM EDT Other chronic pain Chronic pain of right knee HEMOGLOBIN A1C Routine 04/14/2024 9:37 AM EST Type 2 diabetes mellitus without complication, without long-term current use of insulin ([facility] V24, [facility] V28) LIPID PANEL WITH REFLEX TO DIRECT LDL Routine 04/14/2024 9:37 AM EST Hypercholesterolemia ANNUAL BMP BLOOD TEST Routine 12/04/2023 FALLS RISK ASSESSMENT Routine 10/01/2023 DEPRESSION SCREENING Routine 06/03/2023 URINE ALBUMIN CREATININE RATIO Routine 05/26/2023 NIKOLAY SCREENING DIGITAL Routine 12/11/2022 11:03 AM EDT Encounter for screening mammogram for malignant neoplasm of breast [facility] DEXA AXIAL SKELETON Routine 12/09/2022 7:43 AM EDT Age-related osteoporosis without current pathological fracture COLONOSCOPY Routine 11/14/2022 DIABETES EYE EXAM Routine 02/13/2021 HEPATITIS C SCREENING Routine 04/14/2018 DIABETES FOOT EXAM Routine 04/08/2018 from Last 3 Months or Most Recently Relevant to Health Maintenance Results * MR Knee wo Contrast Left (06/30/2024 10:17 AM EDT) Anatomical Region Laterality Modality Lower Extremities, Knee Left Magnetic Resonance 07/06/2024 8:31 AM EDT Impressions 07/06/2024 8:44 AM EDT Evaluation partially limited by motion. 1. ??Complex tear of the medial meniscus associated with extrusion. 2. ??Probable tear of the posterior horn of the lateral meniscus. 3. ??Findings suggesting sprain of the lateral collateral ligament. 4. ??Degenerative chondrosis in the medial compartment. -------- FINAL REPORT -------- Dictated By: Laura Hudson Dictated Date: 07/06/2024 08:31 ET Assigned Physician: Laura Hudson Reviewed and Electronically Signed By: Laura Hudson Signed Date: 07/06/2024 08:44 ET Workstation ID: [id number] Transcribed By: Self Edit Transcribed Date: 07/06/2024 08:42 ET Narrative 07/06/2024 8:44 AM EDT MR KNEE WO CONTRAST LEFT TECHNIQUE: Multisequence MRI of the left knee without intravenous contrast. COMPARISON: Radiographs of the knee on April 29, 2024 HISTORY: chronic pain L knee FINDINGS: Motion degrades many sequences. Medial Compartment: Irregularity of the body and posterior horn of the medial meniscus, reflecting complex tear, associated with extrusion of the body. Diffuse cartilage thinning, with focal area of subchondral edema in the medial femoral condyle. ??Prominent marginal osteophytes. Lateral Compartment: Minimal irregularity of the posterior horn of the lateral meniscus likely reflecting tear. No full-thickness cartilage defect. ??No subchondral edema. Patellofemoral Compartment: No full-thickness cartilage defect. ??No subchondral edema. Tendons: Quadriceps, patellar and popliteus tendons are intact. Ligaments: Anterior and posterior cruciate ligaments are intact. Medial collateral ligament is intact. ??Intermediate signal intensity and mild irregularity of the proximal segment of the lateral collateral ligament suggests sprain. Bones: No fracture. ??Degenerative cystic changes in the intercondylar area of the femur. Joint: Small joint effusion. ??Small Britton's cyst. Soft tissues: Mild soft tissue edema in the anterior knee, more pronounced along the midline. Procedure Note Laura Hudson MD - 07/06/2024 MR KNEE WO CONTRAST LEFT TECHNIQUE: Multisequence MRI of the left knee without intravenouscontrast. COMPARISON: Radiographs of the knee on April 29, 2024 HISTORY: chronic pain L knee FINDINGS: Motion degrades many sequences. Medial Compartment: Irregularity of the body and posterior horn of themedial meniscus, reflecting complex tear, associated with extrusion of thebody. Diffuse cartilage thinning, with focal area of subchondral edema inthe medial femoral condyle. Prominent marginal osteophytes. Lateral Compartment: Minimal irregularity of the posterior horn of thelateral meniscus likely reflecting tear. No full-thickness cartilagedefect. No subchondral edema. Patellofemoral Compartment: No full-thickness cartilage defect. Nosubchondral edema. Tendons: Quadriceps, patellar and popliteus tendons are intact. Ligaments: Anterior and posterior cruciate ligaments are intact. Medialcollateral ligament is intact. Intermediate signal intensity and mildirregularity of the proximal segment of the lateral collateral ligamentsuggests sprain. Bones: No fracture. Degenerative cystic changes in the intercondylar areaof the femur. Joint: Small joint effusion. Small Britton's cyst. Soft tissues: Mild soft tissue edema in the anterior knee, more pronouncedalong the midline. IMPRESSION: Evaluation partially limited by motion. 1. Complex tear of the medial meniscus associated with extrusion. 2. Probable tear of the posterior horn of the lateral meniscus. 3. Findings suggesting sprain of the lateral collateral ligament. 4. Degenerative chondrosis in the medial compartment. -------- FINAL REPORT -------- Dictated By: Laura Hudson Dictated Date: 07/06/2024 08:31 ET Assigned Physician: Laura Hudson Reviewed and Electronically Signed By: Laura Hudson Signed Date: 07/06/2024 08:44 ET Workstation ID: [id number] Transcribed By: Self Edit Transcribed Date: 07/06/2024 08:42 ET us Sherrie Fields MD IMG MRI PROCEDURES Final Re sult * MR Knee wo Contrast Right (06/30/2024 9:55 AM EDT) Anatomical Region Laterality Modality Lower Extremities, Knee Right Magnetic Resonance 07/06/2024 8:12 AM EDT Impressions 07/06/2024 8:43 AM EDT Evaluation partially limited by motion. 1. ??Complex tear of the medial meniscus associated with extrusion. 2. ??Complex tear of the body of the lateral meniscus. 3. ??Findings suggesting sprain of the lateral collateral ligament. 4. ??Degenerative chondrosis, more pronounced in the medial compartment. -------- FINAL REPORT -------- Dictated By: Laura Hudson Dictated Date: 07/06/2024 08:12 ET Assigned Physician: Laura Hudson Reviewed and Electronically Signed By: Laura Hudson Signed Date: 07/06/2024 08:43 ET Workstation ID: [id number] Transcribed By: Self Edit Transcribed Date: 07/06/2024 08:31 ET Narrative 07/06/2024 8:43 AM EDT MR KNEE WO CONTRAST RIGHT TECHNIQUE: Multisequence MRI of the right knee without intravenous contrast. COMPARISON: Radiographs of the knee on April 29, 2024 HISTORY: chronic pain right knee FINDINGS: Motion degrades many sequences. Medial Compartment: Motion partially limits evaluation, but there is complex tear involving the body and posterior horn of the medial meniscus, and associated with extrusion of the body. Diffuse cartilage thinning, with focal areas of subchondral edema. Lateral Compartment: Motion partially limits evaluation, but there is complex tear involving the body of the lateral meniscus. Diffuse cartilage thinning. ??No subchondral edema. Patellofemoral Compartment: No cartilage defect or subchondral edema. Tendons: Quadriceps, patellar and popliteus tendons are intact. Ligaments: Anterior and posterior cruciate ligaments are intact. Medial collateral ligament is intact. ??Intermediate signal intensity and mild irregularity of the proximal segment of the lateral collateral ligament suggests sprain. Bones: No fracture Joint: No joint effusion. ??Small Britton's cyst. Soft tissues: Mild soft tissue edema in the anterior knee, more pronounced along the midline. Procedure Note Laura Hudson MD - 07/06/2024 MR KNEE WO CONTRAST RIGHT TECHNIQUE: Multisequence MRI of the right knee without intravenouscontrast. COMPARISON: Radiographs of the knee on April 29, 2024 HISTORY: chronic pain right knee FINDINGS: Motion degrades many sequences. Medial Compartment: Motion partially limits evaluation, but there iscomplex tear involving the body and posterior horn of the medial meniscus,and associated with extrusion of the body. Diffuse cartilage thinning,with focal areas of subchondral edema. Lateral Compartment: Motion partially limits evaluation, but there iscomplex tear involving the body of the lateral meniscus. Diffuse cartilagethinning. No subchondral edema. Patellofemoral Compartment: No cartilage defect or subchondral edema. Tendons: Quadriceps, patellar and popliteus tendons are intact. Ligaments: Anterior and posterior cruciate ligaments are intact. Medialcollateral ligament is intact. Intermediate signal intensity and mildirregularity of the proximal segment of the lateral collateral ligamentsuggests sprain. Bones: No fracture Joint: No joint effusion. Small Britton's cyst. Soft tissues: Mild soft tissue edema in the anterior knee, more pronouncedalong the midline. IMPRESSION: Evaluation partially limited by motion. 1. Complex tear of the medial meniscus associated with extrusion. 2. Complex tear of the body of the lateral meniscus. 3. Findings suggesting sprain of the lateral collateral ligament. 4. 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 -------- FINAL REPORT -------- Dictated By: Laura Hudson Dictated Date: 07/06/2024 08:12 ET Assigned Physician: Laura Hudson Reviewed and Electronically Signed By: Laura Hudson Signed Date: 07/06/2024 08:43 ET Workstation ID: [id number] Transcribed By: Self Edit Transcribed Date: 07/06/2024 08:31 ET Sherrie Fields MD IM MRI PROCEDURES Final Re sult * Lipid panel with reflex to direct LDL (04/14/2024 9:37 AM EST) Cholesterol 134 0 - 200 mg/dL LAB CHEMISTRY METHOD 04/14/2024 12:14 PM EST [facility] Triglycerides 80 0 - 150 mg/dL LAB CHEMISTRY METHOD 04/14/2024 12:14 PM EST [facility] HDL 56 >=40 mg/dL LAB CHEMISTRY METHOD 04/14/2024 12:14 PM EST [facility] LDL Calculated 62 0 - 100 mg/dL LAB CHEMISTRY METHOD 04/14/2024 12:14 PM EST [facility] VLDL Cholesterol Dayron 16 mg/dL LAB CHEMISTRY METHOD 04/14/2024 12:14 PM EST [facility] Non HDL Chol. (LDL+VLDL) 78 <145 mg/dL LAB CHEMISTRY METHOD 04/14/2024 12:14 PM EST [facility] Chol/HDL Ratio 2.4 0.0 - 4.4 LAB CHEMISTRY METHOD 04/14/2024 12:14 PM EST [facility] Blood Venous blood specimen / Unknown Venipuncture / Unknown 04/14/2024 9:37 AM EST 04/14/2024 9:37 AM EST us Sherrie Fields MD LAB BLOOD ORDERABLES Final Result [facility] [address] [place] [address], [place] [phone] * Hemoglobin A1c (04/14/2024 9:37 AM EST) Hemoglobin A1C 6.0 <6.5 % LAB CHEMISTRY METHOD 04/14/2024 2:06 PM EST [facility] Mean Bld Glu Estim. 126 mg/dL LAB CHEMISTRY METHOD 04/14/2024 2:06 PM EST [facility] Blood Venous blood specimen / Unknown Venipuncture / Unknown 04/14/2024 9:37 AM EST 04/14/2024 9:37 AM EST Sherrie Fields MD LAB BLOOD ORDERABLES Final Result [facility] [address] [place] [address], * Annual BMP Blood Test (12/04/2023) Pathologist [facility] Annual BMP Blood Test abstracted Historical Provider HEALTH MAINTENANCE Final Result * Falls Risk Assessment (10/01/2023) [facility] Falls Risk Assessment abstracted Result [facility] Historical Provider HEALTH MAINTENANCE Final Result * Depression Screening (06/03/2023) Pathologist [facility] Depression Screening abstracted Result [facility] Historical Provider HEALTH MAINTENANCE Final Result * Urine Albumin Creatinine Ratio (05/26/2023) Pathologist [facility] Urine Albumin Creatinine Ratio abstracted Historical Provider HEALTH MAINTENANCE Final Result * NIKOLAY SCREENING DIGITAL (12/11/2022 11:03 AM EDT) Anatomical Region Laterality Modality Mammography 12/06/2022 2:29 PM EDT Narrative 12/11/2022 11:03 AM EDT [facility] Diagnostic Imaging Department [address], [place] [id number] Patient: ??GILDA PEARL ?/Age/Sex: 1950 - 72 - F Unit#: ??[id number] ? Location/Status: ??SPDIMAM/REG CLI ? Mnemonic/Ordering Site: ??DIGSC/SPMAM Ordering Physician: ??MIKE FIELDS MD [facility] Screening Digital - 12/06/22 - 1501 Report Status:Signed EXAM: [facility] Screening Digital EXAM DATE AND TIME: 12/06/2022 3:01 PM HISTORY: ??Routine screening mammogram COMPARISON: ??11/07/2021, 12/13/2019 TECHNIQUE: Bilateral digital breast tomosynthesis was performed in the CC and MLO projections. Computer aided detection with GraphOn 3D 3.1 was employed. TISSUE DENSITY: b. There are scattered areas of fibroglandular density. FINDINGS: No suspicious masses, grouped microcalcifications, or areas of architectural distortion are seen. The skin and vascularity are unremarkable. IMPRESSION: Stable mammographic appearance of the breasts. ??No evidence of malignancy is seen. A negative mammogram in the presence of a clinically suspicious palpable abnormality does not preclude the possibility of malignancy or alter the indications for biopsy. BI-RADS: ??Category 1: Negative RECOMMENDATION(S): 1: Routine screening mammogram BILATERAL in 1 year. Dictating Physician: ??HERON VALENCIA MD Electronically Signed by: ??HERON VALENCIA MD Dic Date/Time: ??12/11/22 110 Sign date/Time: ??12/11/22 110 Procedure Note Heron Valencia MD - 05/06/2023 [facility] Diagnostic Imaging Department [address] [place] [id number] Patient: GILDA PEARL /Age/Sex: 1950 - 72 - F Unit#: [id number] Location/Status: SPDIMAM/REG CLI Mnemonic/Ordering Site: [facility] Ordering Physician: MIKE FIELDS MD [facility] Screening Digital - 12/06/22 - 1501 Report Status:Signed EXAM: [facility] Screening Digital EXAM DATE AND TIME: 12/06/2022 3:01 PM HISTORY: Routine screening mammogram COMPARISON: 11/07/2021, 12/13/2019 TECHNIQUE: Bilateral digital breast tomosynthesis was performed in the CCand MLO projections. Computer aided detection with Bi02 MedicalD Waspit AI 3D 3.1was employed. TISSUE DENSITY: b. There are scattered areas of fibroglandular density. FINDINGS: No suspicious masses, grouped microcalcifications, or areas ofarchitectural distortion are seen. The skin and vascularity are unremarkable. IMPRESSION: Stable mammographic appearance of the breasts. No evidence of malignancyis seen. A negative mammogram in the presence of a clinically suspicious palpable abnormality does not preclude the possibility of malignancy or alter the indications for biopsy. BI-RADS: Category 1: Negative RECOMMENDATION(S): 1: Routine screening mammogram BILATERAL in 1 year. Dictating Physician: HERON VALENCIA MD Electronically Signed by: HERON VALENCIA MD Dic Date/Time: 12/11/22 110 Sign date/Time: 12/11/221102 us Mike Fields MD IMG BI PROCEDURES Final Result * [facility] DEXA AXIAL SKELETON (12/09/2022 7:43 AM EDT) Anatomical Region Laterality Modality Mammography 12/06/2022 2:32 PM EDT Narrative 12/09/2022 7:43 AM EDT [facility] Diagnostic Imaging Department [address] [place] [id number] Patient: ??GILDA PEARL ?/Age/Sex: 1950 - 72 - F Unit#: ??[id number] ? Location/Status: ??SPDIMAM/REG CLI ? Mnemonic/Ordering Site: ??MAMDEXAAX/SPMAM Ordering Physician: ??MIKE FIELDS MD [facility] Dexa Axial Skeleton - 12/06/22 - 2912 Report Status:Signed HISTORY: ??The patient is a 72-year-old postmenopausal female with clinical concern for metabolic bone disease. FINDINGS: ??Dual energy x-ray absorptiometry of the lumbar spine and femurs is performed. The mean bone mineral density at L3-4 is 0.866 gm/cm2 which is 72% of that of young normals and 77% of that of age matched controls. This yields a T- score of -2.8 and a Z-score of -2.1 which is diagnostic of osteoporosis. The mean bone mineral density of the femurs bilaterally is 0.935 gm/cm2 which is 93% of that of young normals and 103% of that of age matched controls. ??This yields a T-score of -0.6 and a Z-score of 0.2 and there is therefore no evidence of osteoporosis or osteopenia here. IMPRESSION: 1. Osteoporosis. 2. FRAX analysis yields a 10-year probability of major osteoporotic fracture of 7.0% and a 10-year probability of hip fracture of 0.8%. Code 27652 Dictating Physician: ??DUANE BEAN MD Electronically Signed by: ??DUANE BEAN MD Dic Date/Time: ??12/09/2242 Sign date/Time: ??12/09/2243 Procedure Note Duane Bean MD - 05/06/2023 [facility] Diagnostic Imaging Department [address] [place] [address] Patient: PEARLGILDA D.O.B./Age/Sex: 1950 - 72 - F Unit#: [id number] Location/Status: [facility] Ordering Physician: MIKE FIELDS MD [facility] Dexa Axial Skeleton - 12/06/22 - 3939 Report Status:Signed HISTORY: The patient is a 72-year-old postmenopausal female withclinical concern for metabolic bone disease. FINDINGS: Dual energy x-ray absorptiometry of the lumbar spine and femursis performed. The mean bone mineral density at L3-4 is 0.866 gm/cm2 which is72% of that of young normals and 77% of that of age matched controls. This yieldsa T- score of -2.8 and a Z-score of -2.1 which is diagnostic of osteoporosis. The mean bone mineral density of the femurs bilaterally is 0.935 gm/vm9fpfmi is 93% of that of young normals and 103% of that of age matched controls.This yields a T-score of -0.6 and a Z-score of 0.2 and there is therefore noevidence of osteoporosis or osteopenia here. IMPRESSION: 1. Osteoporosis. 2. FRAX analysis yields a 10-year probability of major osteoporoticfracture of 7.0% and a 10-year probability of hip fracture of 0.8%. Code 99997 Dictating Physician: DUANE BEAN MD Electronically Signed by: DUANE BEAN MD Dic Date/Time: 12/09/2242 Sign date/Time: 12/09/22742 Result [facility] Mike Fields MD IMG BI PROCEDURES Final Result * Colonoscopy (11/14/2022) [facility] Colonoscopy no interpretation , abstracted Anatomical Region Laterality Modality Other [facility] Provider HEALTH MAINTENANCE Final Result * Diabetes Eye Exam (02/13/2021) [facility] Diabetes: Annual Retina Eye Exam abstracted Result [facility] Provider HEALTH MAINTENANCE Final Result * Hepatitis C Screening (04/14/2018) [facility] Hepatitis C Screening abstracted Result [facility] Provider HEALTH MAINTENANCE Final Result * Diabetes Foot Exam (04/08/2018) [facility] Diabetes: Annual Foot Exam abstracted Result [facility] Provider HEALTH MAINTENANCE Final Result from Last 3 Months or Most Recently Relevant to Health Maintenance Insurance [employer] Member Subscriber Plan / Payer (Ef fective 2021-Present) Name:Gilda Pearl Relation to Subscriber:Self Name:Gilda Pearl Payer ID:[id number] Group ID:[id number] Type:Not on file Address: [place] [address] [place] [place] [phone] Care Teams Psychologist Personnel Relationship Specialty Start Date End Date Sherrie Fields MD [address] [place] [address] PCP - General 12/24/22
== END 2024-08-11 09:57 | disposition home or self-care (01) ==
LOC: HO.PMC 09:24
PROVIDERS: PCP Internal Medicine; Referring Provider Internal Medicine; Visit Provider Anesthesiology
DX: M17.0 Bilateral primary osteoarthritis of knee (principal); M25.561 Pain in right knee; M25.562 Pain in left knee; G89.4 Chronic pain syndrome
CPT/HCPCS: 99203

== ENCOUNTER → 2024-08-11 09:24 | Outpatient (BNVA) | payer OTHER, SELFPAY | PROVIDERS: PCP Internal Medicine; Referring Provider Internal Medicine; Visit Provider Anesthesiology | DX: M17.0 Bilateral primary osteoarthritis of knee (principal); M25.561 Pain in right knee; M25.562 Pain in left knee; G89.4 Chronic pain syndrome | CPT/HCPCS: 99202 ==

== ENCOUNTER 2024-09-03 07:13 | Day surgery (SDC) | payer OTHER, SELFPAY ==
[2024-09-01 15:03] VITALS: BMI 38.4
[2024-09-01 15:23] VITALS: BMI 38.2
--- NOTE | ~2024-09-03 | FL_ITS ---
EXAMINATION: FL GUIDANCE ONLY HISTORY: left genicular nerve block COMPARISON: None available. TECHNIQUE: Fluoroscopy time: 23.6 seconds. Cumulative Dose: 3.5564 mGy. DAP: 1.2528 mGym2 Images: 1. FINDINGS: A single fluoroscopic spot film of the knee in the lateral projection demonstrates needles in the distal thigh and proximal calf. FL/FL guidance in OR IMPRESSION: Fluoroscopy during procedure. Please see procedure report for additional information. Electronically signed by: Eliazar Araujo MD 09/03/2024 09:22 AM EDT
[2024-09-03 07:27] VITALS: BMI 39.4
[2024-09-03 07:46] VITALS: BP 138/64; PULSE 83; RESP 16; TEMP 36.6; O2SAT 95
[2024-09-03] MEDS: Lactated Ringers 1,000 ML 50 ML IVCONT (07:54)
[2024-09-03] MEDS: Albuterol Sulfate (0.083%) 2.5 MG/3 ML VIAL.NEB INHALE (07:56)
--- NOTE | 2024-09-03 08:08 | P.HPSUR_ITS ---
Pre-Procedural Eval Section A - 24 Hr Update-Section A only Date of Service: 09/03/24 The patient is an INPATIENT: No Changes since office visit: Yes Patient answered all questions The patient has been examined within 24 hours of the surgical procedure. The History & Physical has been completed within 30 days and I have reviewed it.: No Section B - Complete if H&P > 30 days Chief Complaint: Bilateral primary osteoarthritis of knee Details of Present Illness: as above Relevant Family History (Specify if Yes): No Relevant Social History: None Present Medications: None Medical History: No relevant PMH History of Previous Operations: No relevant previous surgery Allergies: Allergies Allergy/AdvReac Type Severity Reaction Status Date / Time morphine Allergy Intermediate Nausea Verified 08/11/24 09:43 pregabalin [From Lyrica] Allergy Intermediate Nausea Verified 08/11/24 09:43 PEANUT BUTTER Allergy Mild RASH Uncoded 12/16/19 15:33 DUST Allergy Unknown UNKNOWN Uncoded 12/16/19 15:33 Review of Systems Sugical H&P ROS: Negative: Cardiovascular, Respiratory, Neurological, Psychiatric, Hem-Onc, Allergic/Immunologic, Gastrointestinal, Genitourinary, Mus culoskeletal, Integumentary, Endocrine and Eyes/Ears/Nose/Throat and Yes, Specify: Constitution (morbid obesity) Exam Surgical H&P Exam: Normal: HEENT, Normal: Heart, Normal: Lungs, Normal: Extremities, Normal: Abdomen, Normal: Skin and Normal: Neurological Plan Diagnosis/Plan: Unchanged I have reviewed the history and physical and performed a pertinent physical examination on my patient. No changes have occurred unless specified. Time Spent With Patient Time: Total time managing care of this patient today __10__ minutes.
--- NOTE | 2024-09-03 08:20 | P.CONAN_ITS ---
[facility] Active Problems Active Problems: All Active Problems Chronic pain syndrome (Acute) Bilateral knee pain (Acute) Osteoarthritis of knees, bilateral (Acute) Past Medical History Medical History Glaucoma Anxiety Fibromyalgia Osteoarthritis OAB (overactive bladder) Osteoporosis GERD (gastroesophageal reflux disease) Rhinitis Neck pain Bilateral hip pain Low back pain Vitamin D deficiency Low iron Gastroparesis COPD (chronic obstructive pulmonary disease) Glaucoma Depression CKD (chronic kidney disease) Asthma HTN (hypertension) HLD (hyperlipidemia) Diabetes Chronic knee pain Cognitive capacity: normal Functional capacity: independent ambulation Patient : No Family History Family history of problems with anesthesia: No Surgical History Surgical History (Updated 09/03/24 @ 07:26 by Ligia Valdovinos RN) H/O eye surgery H/O bilateral cataract extraction History of bladder surgery Hx of cholecystectomy History of Problems with Anesthesia: No Social History Social History Are you a primary patient care director to a significant other at home: No Do you presently have visiting nurse or other home services: Yes (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 ) Patient Tobacco Use Status: Former Tobacco user Tobacco use type: Cigarette Smoked in Last 30 Days: No Use of substances other than those prescribed or required for medical reasons: No Are you DNR?: No Advance Directives: Yes Advance Directives Information Provided: No Advance Directives on File: Yes Advance Directives Date on File: 10/21/08 Patient : No : No Poor oral hygiene: No Meds Allergies Allergy/AdvReac Type Severity Reaction Status Date / Time morphine Allergy Intermediate Nausea Verified 08/11/24 09:43 pregabalin [From Lyrica] Allergy Intermediate Nausea Verified 08/11/24 09:43 PEANUT BUTTER Allergy Mild RASH Uncoded 12/16/19 15:33 DUST Allergy Unknown UNKNOWN Uncoded 12/16/19 15:33 Active Medications: Current Medications Lactated Ringer's (Lr) 1,000 mls @ 50 mls/hr IVCONT .Q20H DIONNA Last Admin: 09/03/24 07:54 Dose: 50 mls/hr Home Medications ?Medication ?Instructions ?Recorded ?Confirmed ?Last Taken ?Type acetaminophen 650 mg 650 mg PO Q8H PRN mild pain 09/01/24 09/01/24 Unknown History tablet,extended release albuterol sulfate 90 mcg/actuation inhalation 09/01/24 Unknown History aerosol inhaler albuterol sulfate 90 mcg/actuation inhalation 09/01/24 Unknown History aerosol inhaler (Ventolin HFA) amlodipine 5 mg tablet 5 mg PO DAILY 09/01/24 09/03/24 09/03/24 History atorvastatin 10 mg tablet 10 mg PO DAILY 09/01/24 09/01/24 Unknown History brimonidine 0.1 % eye drops 1 drp ophthalmic-Right TID 09/01/24 09/01/24 Unknown History brinzolamide 1 % eye 1 drp ophthalmic-Right TID 09/01/24 09/01/24 Unknown History drops,suspension budesonide 160 mcg-glycopyr 9 1 inh inhalation DAILY 09/01/24 09/03/24 09/03/24 History mcg-formot 4.8 mcg/actuation HFA inhaler (Breztri Aerosphere) diclofenac sodium 50 mg 50 mg PO BID 09/01/24 09/01/24 Unknown History tablet,delayed release hydrochlorothiazide 12.5 mg capsule 12.5 mg PO DAILY 09/01/24 09/01/24 Unknown History latanoprost 0.005 % eye drops 1 drp ophthalmic (eye) QPM 09/01/24 09/01/24 Unknown History lorazepam 1 mg tablet 1 mg PO TID PRN Anxiety 09/01/24 09/03/24 09/03/24 02:00 History tirzepatide (weight loss) 5 mg/0.5 5 mg subcut QWEEK 09/01/24 09/01/24 08/18/24 History mL subcutaneous pen injector (Zepbound) valsartan 160 mg tablet 160 mg PO DAILY 09/01/24 09/01/24 Unknown History vibegron 75 mg tablet (Gemtesa) 75 mg PO DAILY 09/01/24 09/01/24 Unknown History Exam Exam Date and Time: 09/03/2024 Height,Weight and Vital Signs: Height 5 ft 2 in Weight 97.6 kg Last Vital Signs Temp 97.9 F 09/03/24 07:46 Pulse 83 09/03/24 07:46 Resp 16 09/03/24 07:46 BP 138/64 09/03/24 07:46 Pulse Ox 95 09/03/24 07:46 O2 Del Method Room Air 09/03/24 07:46 Airway Mallampati Class: III TM Dist: >3cm Loose/Missing/Broken Teeth: Yes Heart: rrr Lungs: ta Assessment and Plan Assessment Anesthesia Assessment: Anesthesia Plan Discussed Final Anesthetic Review Family History of Problems with Anesthesia: No History of Problems with Anesthesia: No NPO: Yes ASA Class: III Final Preanesthetic Review: No Changes in Pt Med Stat, Meds/Allgs Chart Reviewed, Consent Obtained/Reviewed and Anes Risks/Benef Reviewed Patient Risk: Intermediate Procedure Risk: Low Anesthetic Plan Anesthetic Plan: MAC: Disposition: Standard PACU
[2024-09-03 09:00] VITALS: BP 134/67; PULSE 81; RESP 20; TEMP 36.8; O2SAT 97
--- NOTE | 2024-09-03 09:00 | PM.OP ---
Brief Operative Note Date of Service: 09/03/24 Pre-op diagnosis: Left knee pain, left knee osteoarthritis. Post-op diagnosis: same Procedure: Diagnostic genicular nerve block left knee. Surgeon: Adan Sierra MD Anesthesia: MAC Was an Engineer System Administrator used for this Procedure?: No Estimated blood loss (mL): 1 Condition: stable Disposition: PACU
--- NOTE | 2024-09-03 09:01 | W.PM.OPN ---
Operative Note Operative Note Date of Service: 09/03/24 Narrative: Left diagnostic genicular nerve block Informed consent was thoroughly explained to the patient with the help of the [facility] alternative dispute resolution mediator. Risks and benefits including bleeding infection risks were explained to the patient. After that the patient was brought to the operating room and positioned supine on the operating table with the gel roll under her left knee. Her left knee anterior surface was prepped with ChloraPrep and draped with sterile self adhesive utility towels. C-arm was brought over the operating field and sq picture of the left knee was demonstrated on the screen. The point of interest were delineated as the confluence of the medial diaphysis of the silhouette of the tibial bone with metaphysis of the tibial bone, confluence of the silhouette of the diaphysis of the femur on the medial side with the metaphysis of the same bone on the medial side as well as confluence of the silhouette of the diaphysis of the femur on the lateral side with the metaphysis of the same bone on the lateral side. The projection of the point of interest to the skin were injected with mixture of local anesthetic lidocaine 2% and ropivacaine 0.5% one-to-one after that three 22 gauge 3-1/2 inch needles were inserted through the skin wheals and they were advanced to were the silhouette of the bone. When on the lateral view the tips of the needles were positioned in the center of the shafts of the both femur and tibia with both condyles thoroughly superimposed 1 over the another on lateral view injection of the treatment medicine containing ropivacaine 0.5% 1.5 mL was injected into each needle. Upon completion of the injection needles were removed, sterile Band-Aids were applied. The patient tolerated the procedure well.
[2024-09-03 09:15] VITALS: BP 149/73; PULSE 75; RESP 20; O2SAT 96
[2024-09-03] MEDS: oxyCODONE HCl Immed Release 5 MG TABLET PO (09:15)
[2024-09-03] MEDS: Acetaminophen 325 MG TABLET 650 MG PO (09:25)
[2024-09-03 09:30] VITALS: BP 146/62; PULSE 78; RESP 20; TEMP 36.4; O2SAT 96
== END 2024-09-03 09:56 | disposition home or self-care (01) ==
PROVIDERS: PCP Internal Medicine; Visit Provider Anesthesiology
PROC: (CPT 64454; principal; 2024-09-03 08:40)
DX: M17.12 Unilateral primary osteoarthritis, left knee (principal); G89.4 Chronic pain syndrome; M25.562 Pain in left knee; R26.2 Difficulty in walking, not elsewhere classified; M79.7 Fibromyalgia; I10 Essential (primary) hypertension; R73.03 Prediabetes; J44.9 Chronic obstructive pulmonary disease, unspecified; Z96.0 Presence of urogenital implants; Z99.89 Dependence on other enabling machines and devices; Z88.5 Allergy status to narcotic agent; Z88.8 Allergy status to other drugs, medicaments and biological substances; Z91.010 Allergy to peanuts; Z90.49 Acquired absence of other specified parts of digestive tract
CPT/HCPCS: 64454; J2003; J2704; J2795; Q9967

== ENCOUNTER → 2024-09-03 07:13 | Outpatient (BNV) | payer OTHER, SELFPAY | PROVIDERS: PCP Internal Medicine; Visit Provider Anesthesiology | DX: M25.562 Pain in left knee (principal); M17.12 Unilateral primary osteoarthritis, left knee | CPT/HCPCS: 64454 ==

== ENCOUNTER 2024-09-15 15:18 | Outpatient (AMB) | payer OTHER, SELFPAY ==
[2024-09-15 15:22] VITALS: BP 154/63; PULSE 85; RESP 16; O2SAT 97; BMI 39.9
--- NOTE | 2024-09-15 15:22 | A.OFFVIS_ITS ---
Vital Signs 09/15/24 15:22 Height 5 ft 1 in Weight 211 lb BMI 39.9 BP 154/63 H Blood Pressure Location Lt brachial Position Sitting Respiration 16 Pulse 85 Pulse Source Pulse Oximeter Pulse Oximetry (%) 97 Oxygen Delivery Method Room Air Intake Visit Reasons: S/p (L) Genicular Nerve Block 09/03/24 Gas Stove Servicer Helper Required: No Accompanied by: TELESALES SPECIALIST Allergies morphine Allergy (Intermediate, Verified 09/15/24 15:24) Nausea pregabalin (From Lyrica) Allergy (Intermediate, Verified 09/15/24 15:24) Nausea PEANUT BUTTER Allergy (Mild, Uncoded 12/16/19 15:33) RASH DUST Allergy (Unknown, Uncoded 12/16/19 15:33) UNKNOWN HPI Comments Details: The patient is a 74-year-old female presenting with chronic left knee pain. She received a diagnostic genicular nerve block on September 03, 2024, resulting in complete temporary pain relief followed by significant pain reduction over several hours. This intervention was intended to evaluate the potential longer- term benefits of nerve ablation. Reports 100% pain relief for at least 3 hours after the procedure followed by 90% pain relief for an additional 4 hours after the procedure. She discontinued Zepbound due to a packaging error but plans to restart the medication following a new prescription. This medication is part of her obesity management strategy. The patient denies the use of anticoagulants. - Onset and Timing: Chronic, with periodic exacerbations and relief post- procedure on September 03, 2024. - Quality and Character: Achieved 100% relief initially, followed by 90% relief for several hours. - Primary Location: Left knee. - Areas of Radiation: Not discussed. - Exacerbating Factors: Decline in procedure effect over time. - Relieving Factors: Diagnostic nerve block and potential future nerve ablation. - Effect on Activities: Limits physical activity and contributes to swelling concerns, impacting mobility. - Affect: Pain reduction post-procedure improved mood and reported activity capability. - Analgesia: Achieved 100% pain relief for three hours post-procedure, 90% relief afterward; aims for sustained relief via nerve ablation. - Adverse Effects: None reported from current pain management. - Activities of Daily Living: Pain restricts physical activity, contributing to edema and obesity management challenges. - Aberrant Drug Related Behaviors: None reported. [facility] Medical History Glaucoma Anxiety Fibromyalgia Osteoarthritis OAB (overactive bladder) Osteoporosis GERD (gastroesophageal reflux disease) Rhinitis Neck pain Bilateral hip pain Low back pain Vitamin D deficiency Low iron Gastroparesis COPD (chronic obstructive pulmonary disease) Glaucoma Depression CKD (chronic kidney disease) Asthma HTN (hypertension) HLD (hyperlipidemia) Diabetes Chronic knee pain Surgical History (Updated 09/03/24 @ 07:26 by Ligia Valdovinos RN) H/O eye surgery H/O bilateral cataract extraction History of bladder surgery Hx of cholecystectomy Social History Are you a primary customer care assistant to a significant other at home: No Do you presently have visiting nurse or other home services: Yes (TELESALES SPECIALIST daily ) Patient Tobacco Use Status: Former Tobacco user Tobacco use type: Cigarette Advance Directives Date on File: 10/21/08 Review of Systems Const Details: - Musculoskeletal: Reports chronic left knee pain. - Cardiovascular: Reports foot swelling. - General: Denies the use of aspirin or anticoagulants. Physical Exam Vital Signs: Last Vital Signs Pulse 85 09/15/24 15:22 Resp 16 09/15/24 15:22 BP 154/63 H 09/15/24 15:22 Pulse Ox 97 09/15/24 15:22 Oxygen Delivery Method Room Air 09/15/24 15:22 BMI result Body Mass Index 39.9 General: awake, alert, oriented. Answers questions appropriately. Fully engaged in examination. Skin: warm, dry, intact HEENT: Normocephalic. Hearing intact. Cardiac: External chest normal in appearance. Respiratory: No cough, audible wheezing or stridor. Abdomen: without gross distension. MS: No obvious swelling or deformities. Able to transition from sit to stand unassisted. Ambulates with bilaterally normal heel strike and toe off Neurological: Oriented to person, place, time and situation. Thought process intact. Psychiatric: Appropriate mood and affect. Good judgment and insight. Results Reviewed Results Reviewed: MRI right knee. Medial compartment motion partial limits evaluation but there is a complex tear involving the body and posterior horn of the medial meniscus, and associated with extrusion of the body, diffuse cartilage thinning, local areas of subchondral edema. Lateral compartment motion partly limits evaluation complex tear and willing body of the lateral meniscus. Diffuse cartilage thinning. No subchondral edema. Patellofemoral compartment or cartilage defects or subchondral edema. Tendons quadriceps patellar and popliteus tendons are intact. Ligaments anterior and posterior cruciate ligaments are intact. Medial collateral ligaments is intact. Intermediate signal intensity and mild irregularity [facility] of the proximal segment of the lateral collateral ligaments suggest sprint. Assessment & Plan Assessment & Plan (1) Osteoarthritis of knees, bilateral: Code(s): M17.0 - Bilateral primary osteoarthritis of knee Category: Medical (2) Bilateral knee pain: Code(s): M25.561 - Pain in right knee; M25.562 - Pain in left knee Category: Medical (3) Chronic pain syndrome: Code(s): G89.4 - Chronic pain syndrome Category: Medical Plan The patient will undergo a radiofrequency nerve ablation procedure to address her chronic knee pain, aiming to extend pain relief duration following the successful diagnostic nerve block outcome. She understands and consents to the described procedure, including the associated benefits and risks. I discussed with the patient the diagnosis of chronic knee pain and the successful outcome of the diagnostic nerve block. We explored the option of a nerve ablation procedure to extend pain relief. I explained the procedure details, including the heat application to provide long-term relief lasting around a year, versus the brief relief from the diagnostic block. The patient agreed to proceed with the nerve ablation, understanding the procedure's risks and potential benefits. Regarding her weight management plan, I addressed the need to resume Zepbound post-mismanagement resolution, underscoring adherence to proper storage protocols. I outlined that once prescribed and insurers approve, further functional improvement can be achieved alongside reduced pain. I will pursue necessary approvals and scheduling without undue delay in the interim. Patient is aware that she must hold this medication 1 week prior to the procedure as it is performed with sedation. Will schedule for fluoroscopy guided left genicular nerve block with sedation Patient was informed and verbally consented to the use of an ambient scribe for clinic note documentation during this visit. Patient Instructions: - Expect a follow-up call to schedule the nerve ablation procedure once insurance approval is obtained. - Store Zepbound as directed, in the refrigerator, and restart after obtaining a new prescription. - Focus on light physical activities within pain tolerance to alleviate swelling. - Await insurance confirmation and follow procedural updates. - Seek immediate care if pain significantly worsens or new concerns arise. Coding Level of Care Code Est Pt Level 3 (15777) Complex EM visit Add On G2211 Diagnoses Osteoarthritis of knees, bilateral M17.0 Bilateral knee pain M25.561; M25.562 Chronic pain syndrome G89.4
--- OUTSIDE RECORDS SUMMARY | 2024-09-15 17:36 | XMS_ITS | Clinical Summary ---
Author Organization [facility] Address [address] [place] [address] Care Team Providers Care Railroad Police Officer Name Role Phone Amparo Vann DMD Primary Care Provider [phone] Source Comments PLEASE NOTE, if this patient is a minor, it may be UNLAWFUL to discuss sensitive information that is contained in these records (such as FAMILY PLANNING, MENTAL HEALTH or SUBSTANCE ABUSE) with the minor patient's parent or other person without the patient's specific authorization.[facility] Allergies Active Allergy Reactions Criticality Noted Date Comments Ibuprofen 10/29/2019 Morphine 10/29/2019 Medications metFORMIN (GLUCOPHAGE-XR) 750 mg 24 hr tablet Take 1 Tab by mouth once daily. Swallow whole. Do not break, crush or chew. 30 Tab 0 05/08/2013 Active Social History Tobacco Use Types Packs/Day Years Used Date Smoking Tobacco: Never Assessed Social Connections Answer Date Recorded Social Connections and Isolation 0 01/25/2020 Financial Resource Strain Answer Date R ecorded Financial Resource Strain 0 2019 Stress Answer Date Recorded Stress 0 01/25/2020 Physical Activity Answer Date Recorded Physical Activity 0 01/25/2020 Food Insecurity Answer Date Recorded Food 0 01/25/2020 Transportation Needs Answer Date Record ed Transportation 0 01/25/2020 Housing Stability Answer Date Recorded Housing 0 01/25/2020 Safety and Environment Answer Date Edson rded Safety 0 01/25/2020 Utilities Answer Date Recorded Utilities 0 01/25/2020 Employment Answer Date Recorded Employment 0 01/25/2020 Comments Unknown Sex and Gender Information Value Date Recorded Sex Assigned at Not on file Legal Sex Female 11:36 AM PDT Gender Identity Not on file Sexual Orientation Not on file Plan of Treatment Not on file Insurance [facility] [place] [place] Care Teams Railroad Police Officer Relationship Specialty Start Date End Date Amparo Vann DMD [address] [place] [address] PCP - General 05/01/19
== END 2024-09-15 15:36 | disposition home or self-care (01) ==
LOC: HO.PMC 15:19
PROVIDERS: PCP Internal Medicine; Visit Provider Registered Nurse Emergency
DX: M17.0 Bilateral primary osteoarthritis of knee (principal); M25.561 Pain in right knee; M25.562 Pain in left knee; G89.4 Chronic pain syndrome
CPT/HCPCS: 99213; G2211

== ENCOUNTER → 2024-09-15 15:18 | Outpatient (BNVA) | payer OTHER, SELFPAY | PROVIDERS: PCP Internal Medicine; Visit Provider Registered Nurse Emergency | DX: M17.0 Bilateral primary osteoarthritis of knee (principal); M25.561 Pain in right knee; M25.562 Pain in left knee; G89.4 Chronic pain syndrome | CPT/HCPCS: 99212 ==

== ENCOUNTER 2024-11-26 11:26 | Day surgery (SDC) | payer OTHER, SELFPAY ==
--- OUTSIDE RECORDS SUMMARY | 2024-11-05 14:37 | XMS_ITS | Encounter Summary ---
Author Organization [facility] Address [address] [place] [address] Care Team Providers Care Cigar Patcher Name Role Phone Sherrie Valadez MD Primary Care Provider [phone] Reason for Visit * Reason Onset Date Comments Overnight Oximetry Test Form 10/28/2024 Encounter Details Date Type Department Care Team (Late st Contact Info) Description 10/28/2024 Telephone [facility] [employer] [address] [place] [phone] Annabelle Gross, SONIA [address] [place] [address] Overnight Oximetry Test Form Social History Tobacco Use Types Packs/Day Years [...] as of this encounter Progress Notes * Valeri Lauren MA - 11/01/2024 8:30 AM EDT Order faxed to [facility] * Annabelle Gross NP - 10/28/2024 6:22 PM EDT I do not see order for NGA but I did order her acapella. I am not sure where order for overnight came from. * Valeri Lauren MA - 10/28/2024 4:09 PM EDT Order printed * Julieth Lopez - 10/28/2024 2:36 PM EDT Fax received from [facility], overnight oximetry testing form received needing signature. documented in this encounter Plan of Treatment Upcoming Encounters Date Type Department Care Team (Late st Contact Info) Description 12/08/2024 9:30 AM EDT Office Visit Adult Medicine [facility] [address] [place] [address] Sherrie Valadez MD [address] [place] [address] 01/06/2025 9:45 AM EDT Office Visit Bariatric Surgery - [employer] [address] [place] [phone] La Ruth MD [address] [place] [address] 01/12/2025 11:25 AM EDT Office Visit Pulmonolgy - [employer] [address] [place] [phone] Annabelle Gross NP [address] [place] [address] 06/08/2025 8:00 AM EDT Office Visit Adult Medicine [facility] [address] [place] [phone] Sherrie Valadez MD [address] [place] [address] documented as of this encounter Visit Diagnoses Not on filedocumented in this encounter Additional Health Concerns Assessment Noted Time PHQ-9 Depression Total Score: 2 06/03/19 25 11:36 AM EST documented as of this encounter Care Teams Cigar Patcher Relationship Specialty Start Date End Date Sherrie Valadez MD [address] [place] [address] PCP - General 12/24/22 documented as of this encounter
--- OUTSIDE RECORDS SUMMARY | 2024-11-05 14:37 | XMS_ITS ---
Author Name [facility] Unknown History of Medication [...] hours if needed for wheezing. 06/02/2024 active rilctlfran-rsgnofcj-qnax oterol (Breztri Aerosphere) 160-9-4.8 mcg/actuation HFA aerosol [...] 1 tablet (1 mg total). 03/27/2018 active Allergies Allergen Reaction Severity Comment Documented Date Source Statu s DOXYCYCLINE NAUSEA ONLY 01/05/2024 [facility] ac tive POLLEN EXTRACTS Other reaction(s): itch 05/26/2023 [facility] active PEANUT HIVES 12/23/2017 [facility] active PREGABALIN Heartracing 05/27/2017 [facility] act francisco DOG DANDER Other reaction(s): sneezing [facility] MORPHINE ITCHING [facility] Problems Problem Status Onset Date Problem Type Date of Resoluti on Source Chronic neck pain active 2023-10-01 ProblemAct [facility] Glaucoma active 2024-05-04 ProblemAct [facility] Depression active 2024-05-04 ProblemAct [facility] Hepatic hemangioma active 2018-05-13 ProblemAct [facility] Obesity (BMI 30-39.9) active 2023-06-03 ProblemAct [facility] Right ovarian cyst active 2024-05-04 ProblemAct [facility] Asthma active 2024-05-04 ProblemAct [facility] Iron deficiency active 2023-12-[address] [facility] Vitamin D deficiency active 2023-12-03 ProblemAct [facility] Chronic kidney disease active 2024-05-04 ProblemAct [facility] Tubular adenoma active 2023-02-[address] [facility] Fibromyalgia active 2012-08-17 ProblemAct [facility] Primary osteoarthritis of right knee active 2023-01-09 ProblemAct [facility] Anxiety active 2012-09-14 ProblemAct [facility] Gait instability active 2023-01-09 ProblemAct C [facility] Severe obesity (BMI 35.0-39.9) with comorbidity (CMS/HCC V24, CMS/HCC V28) active 2020-08-15 ProblemAct [facility] Abdominal pain active 2023-06-03 ProblemAct [facility] Hypertension active 2024-05-04 ProblemAct [facility] Primary osteoarthritis of left knee active 2020-08-15 ProblemAct [facility] Osteoporosis active 2023-05-26 ProblemAct [facility] Angiodysplasia of colon active 2023-02-07 ProblemAct [facility] GERD (gastroesophageal reflux disease) active 2023-05-26 ProblemAct [facility] Chronic pain of both shoulders active 2023-02-07 ProblemAct [facility] Mixed hyperlipidemia active 2023-08-23 ProblemAct [facility] Cyst of left kidney active 2023-12-03 ProblemAct [facility] Cervical neuropathy active 2023-10-01 ProblemAct [facility] Chronic obstructive pulmonary disease ([facility] V24, [facility] V28) active 2017-09-08 ProblemAct [facility] Rhinitis active 2023-06-03 ProblemAct [facility] Diabetes mellitus without complication ([facility] V24, [facility] V28) active 2024-01-05 ProblemAct [facility] Internal hemorrhoids active 2023-02-07 ProblemAct [facility] Pulmonary nodules active 2017-07-28 ProblemAct [facility] Emphysema/COPD ([facility] V24, [facility] V28) active 2024-05-04 ProblemAct [facility] Chronic bilateral low back pain with bilateral sciatica active 2023-12-03 ProblemAct [facility] Gastroparesis active 2023-12-03 ProblemAct [facility] Overactive bladder active 2023-02-07 ProblemAct [facility] Chronic pain of both knees active 2023-02-07 ProblemAct [facility] Chronic pain of both hips active 2023-12-03 ProblemAct [facility] Urge incontinence active 2023-02-07 ProblemAct [facility] Immunizations Vaccine Date Source Lot Number Status Respiratory syncytial virus (RSV), unspecified 09/17/2023 [facility] [id number] completed Zoster recombinant (Shingrix ) 19yo and older 09/17/2023 [facility] [id number] completed Influenza trivalent, 0.5mL ( Fluzone High-dose) 65yo and older 02/07/2023 [facility] [id number] comple chuy Influenza trivalent, 0.5mL ( Fluzone High-dose) 65yo and older 02/22/2022 [facility] [id number] comple chuy Pneumococcal polysaccharide 23 valent (Pneumovax 23) 2yo and older 04/26/2021 [facility] [id number] com pleted Influenza trivalent, 0.5mL ( Fluzone High-dose) 65yo and older 12/09/2019 [facility] [id number] comple chuy Pneumococcal conjugate 13 va lent (Prevnar 13, PCV13) 2mo and older 12/09/2019 [facility] [id number] complet ed Pneumococcal conjugate 13 va lent (Prevnar 13, PCV13) 2mo and older 02/10/2017 [facility] [id number] complet ed Influenza trivalent, with pr eservative (Fluzone; Afluria) 6mo and older 01/16/2016 [facility] [id number] completed Tdap Tetanus diptheria acell ular pertussis (Boostrix; Adacel) 7yo and older 07/07/2014 [facility] [id number] completed Pneumococcal polysaccharide 23 valent (Pneumovax 23) 2yo and older 01/23/2012 [facility] com pleted Influenza trivalent, with pr eservative (Fluzone; Afluria) 6mo and older 12/09/2011 [facility] completed
--- OUTSIDE RECORDS SUMMARY | 2024-11-05 14:37 | XMS_ITS | Patient Health Record ---
Author Organization [facility] Address [address] [place] [phone] Care Team Providers Care Clinical Data Programmer Name Role Phone Abner Norton Jr Reason For Referral No Information Plan Of Treatment No Information
--- OUTSIDE RECORDS SUMMARY | 2024-11-05 14:37 | XMS_ITS | Clinical Summary ---
Author Organization [facility] Address [address] [place] [address] Care Team Providers Care Facer Operator Name Role Phone Amparo Vann DMD Primary Care Provider [phone] Source Comments PLEASE NOTE, if this patient [...] Plan of Treatment Not on file Insurance [facility] [place] Care Teams Facer Operator Relationship Specialty Start Date End Date Amparo Vann DMD [address] [place] [address] PCP - General 05/01/19
[2024-11-23 14:36] VITALS: BMI 39.9
--- NOTE | 2024-11-25 08:37 | HO.ANESPROP2 ---
Documented by User: Janna Pak NP 11/25/24 08:44 HPI - Anesthesia Eval Consult details Narrative: 74yo F for Left Genicular Nerve Cool RFA s/p diagnostic block 08/2024 with [facility] Anesthesia Pre-Procedure Meds Is the patient on any of the following meds?: GLP1/DPP4 PMFSH Active Problems Active Problems: All Active Problems Chronic pain syndrome (Acute) Bilateral knee pain (Acute) Osteoarthritis of knees, bilateral (Acute) Past Medical History Medical History (Updated 11/23/24 @ 14:22 by Miriam Lambert RN) Anxiety Fibromyalgia Osteoarthritis OAB (overactive bladder) Osteoporosis GERD (gastroesophageal reflux disease) Rhinitis Neck pain Bilateral hip pain Low back pain Vitamin D deficiency Low iron Gastroparesis COPD (chronic obstructive pulmonary disease) Glaucoma Depression CKD (chronic kidney disease) Asthma HTN (hypertension) HLD (hyperlipidemia) Diabetes Chronic knee pain Family History Family history of problems with anesthesia: No Surgical History Surgical History (Updated 09/03/24 @ 07:26 by Ligia Valdovinos RN) H/O eye surgery H/O bilateral cataract extraction History of bladder surgery Hx of cholecystectomy History of Problems with Anesthesia: No Social History Social History Are you a primary manager career to a significant other at home: No Do you presently have visiting nurse or other home services: Yes ([employer] daily ) Patient Tobacco Use Status: Former Tobacco user Tobacco use type: Cigarette Use of substances other than those prescribed or required for medical reasons: No Are you DNR?: No Advance Directives: No Advance Directives Information Provided: Yes Advance Directives Date on File: 10/21/08 Meds Allergies Allergy/AdvReac Type Severity Reaction Status Date / Time morphine Allergy Intermediate Nausea Verified 09/15/24 15:24 pregabalin (From Lyrica) Allergy Intermediate Nausea Verified 09/15/24 15:24 Peanut Butter Allergy Mild Rash Verified 11/23/24 14:22 mite-Dermatophagoides Allergy Unknown Unknown Verified 11/23/24 14:22 juanito medina (dust mite - [place]) Home Medications ?Medication ?Instructions ?Recorded ?Confirmed ?Last Taken ?Type acetaminophen 650 mg 650 mg PO Q8H PRN mild pain 09/01/24 11/23/24 Unknown History tablet,extended release albuterol sulfate 90 mcg/actuation 1 inh inhalation Q4H PRN Shortness 09/01/24 11/23/24 Unknown History aerosol inhaler Of Breath Or Wheezing albuterol sulfate 90 mcg/actuation inhalation 09/01/24 Unknown History aerosol inhaler (Ventolin HFA) amlodipine 5 mg tablet 5 mg PO DAILY 09/01/24 11/23/24 09/03/24 History atorvastatin 10 mg tablet 10 mg PO DAILY 09/01/24 11/23/24 Unknown History brimonidine 0.1 % eye drops 1 drp ophthalmic-Right TID 09/01/24 11/23/24 Unknown History brinzolamide 1 % eye 1 drp ophthalmic-Right TID 09/01/24 11/23/24 Unknown History drops,suspension budesonide 160 mcg-glycopyr 9 1 inh inhalation DAILY 09/01/24 11/23/24 09/03/24 History mcg-formot 4.8 mcg/actuation HFA inhaler (Breztri Aerosphere) diclofenac sodium 50 mg 50 mg PO BID 09/01/24 11/23/24 Unknown History tablet,delayed release hydrochlorothiazide 12.5 mg capsule 12.5 mg PO DAILY 09/01/24 11/23/24 Unknown History latanoprost 0.005 % eye drops 1 drp ophthalmic (eye) QPM 09/01/24 11/23/24 Unknown History lorazepam 1 mg tablet 1 mg PO TID PRN Anxiety 09/01/24 11/23/24 09/03/24 02:00 History tirzepatide (weight loss) 5 mg/0.5 5 mg subcut QWEEK 09/01/24 11/23/24 08/18/24 History mL subcutaneous pen injector (Zepbound) valsartan 160 mg tablet 160 mg PO DAILY 09/01/24 11/23/24 Unknown History vibegron 75 mg tablet (Gemtesa) 75 mg PO DAILY 09/01/24 11/23/24 Unknown History Exam Height,Weight and Vital Signs: Height 5 ft 1 in Weight 95.708 kg Pertinent Lab Results Pertinent Lab Results: [facility] 10/2024 WBC 4.8 - 10.8 K/mcL 10.7 RBC 3.80 - 4.80 M/mcL 4.40 Hemoglobin 11.5 - 16.0 g/dL 11.8 Hematocrit 35.0 - 47.0 % 38.9 MCV 79.0 - 98.0 FL 87.6 MCH 27.0 - 32.0 pcg 26.6?Low? MCHC 32.0 - 37.0 g/dL 30.3?Low? RDW 11.0 - 15.0 % 13.7 Platelets 130 - 400 K/mcL 237 Sodium 133 - 145 mmol/L 138 Potassium 3.5 - 5.5 mmol/L 4.0 Chloride 96 - 110 mmol/L 103 CO2 21 - 32 mmol/L 29 Anion Gap 3 - 11 6 Glucose 70 - 100 mg/dL 91 BUN 5 - 25 mg/dL 12 Creatinine 0.50 - 1.10 mg/dL 0.71 eGFR >=60 mL/min/1.73m2 90 BUN/Creatinine Ratio ? 16.9 Calcium 8.5 - 10.5 mg/dL 8.9 AST (SGOT) 10 - 42 unit/L 16 ALT (SGPT) 10 - 60 unit/L 29 Alkaline Phosphatase 42 - 121 unit/L 115 Total Protein 6.0 - 8.0 g/dL 6.6 Albumin 3.2 - 5.0 g/dL 3.4 Total Bilirubin 0.0 - 1.4 mg/dL 0.3 Narrative Narrative: EKG from [facility] 10/2024 NSR @ 82 Assessment and Plan Assessment Anesthesia Assessment: Chart Reviewed Final Anesthetic Review Family History of Problems with Anesthesia: No History of Problems with Anesthesia: No Documented by User: Geraldine Qureshi MD 11/26/24 13:11 [facility] Past Medical History Medical History (Updated 11/23/24 @ 14:22 by Miriam Lambert RN) Anxiety Fibromyalgia Osteoarthritis OAB (overactive bladder) Osteoporosis GERD (gastroesophageal reflux disease) Rhinitis Neck pain Bilateral hip pain Low back pain Vitamin D deficiency Low iron Gastroparesis COPD (chronic obstructive pulmonary disease) Glaucoma Depression CKD (chronic kidney disease) Asthma HTN (hypertension) HLD (hyperlipidemia) Diabetes Chronic knee pain Surgical History Surgical History (Updated 09/03/24 @ 07:26 by Ligia Valdovinos RN) H/O eye surgery H/O bilateral cataract extraction History of bladder surgery Hx of cholecystectomy Social History Social History Are you a primary manager career to a significant other at home: No Do you presently have visiting nurse or other home services: Yes ([employer] daily ) Patient Tobacco Use Status: Former Tobacco user Tobacco use type: Cigarette Use of substances other than those prescribed or required for medical reasons: No Are you DNR?: No Advance Directives: No Advance Directives Information Provided: Yes Advance Directives Date on File: 10/21/08 Meds Allergies Allergy/AdvReac Type Severity Reaction Status Date / Time morphine Allergy Intermediate Nausea Verified 09/15/24 15:24 pregabalin (From Lyrica) Allergy Intermediate Nausea Verified 09/15/24 15:24 Peanut Butter Allergy Mild Rash Verified 11/23/24 14:22 mite-Dermatophagoides Allergy Unknown Unknown Verified 11/23/24 14:22 farinae, juanito (dust mite - [place]) Home Medications ?Medication ?Instructions ?Recorded ?Confirmed ?Last Taken ?Type acetaminophen 650 mg 650 mg PO Q8H PRN mild pain 09/01/24 11/23/24 Unknown History tablet,extended release albuterol sulfate 90 mcg/actuation 1 inh inhalation Q4H PRN Shortness 09/01/24 11/23/24 Unknown History aerosol inhaler Of Breath Or Wheezing albuterol sulfate 90 mcg/actuation inhalation 09/01/24 Unknown History aerosol inhaler (Ventolin HFA) amlodipine 5 mg tablet 5 mg PO DAILY 09/01/24 11/23/24 09/03/24 History atorvastatin 10 mg tablet 10 mg PO DAILY 09/01/24 11/23/24 Unknown History brimonidine 0.1 % eye drops 1 drp ophthalmic-Right TID 09/01/24 11/23/24 Unknown History brinzolamide 1 % eye 1 drp ophthalmic-Right TID 09/01/24 11/23/24 Unknown History drops,suspension budesonide 160 mcg-glycopyr 9 1 inh inhalation DAILY 09/01/24 11/23/24 09/03/24 History mcg-formot 4.8 mcg/actuation HFA inhaler (Breztri Aerosphere) diclofenac sodium 50 mg 50 mg PO BID 09/01/24 11/23/24 Unknown History tablet,delayed release hydrochlorothiazide 12.5 mg capsule 12.5 mg PO DAILY 09/01/24 11/23/24 Unknown History latanoprost 0.005 % eye drops 1 drp ophthalmic (eye) QPM 09/01/24 11/23/24 Unknown History lorazepam 1 mg tablet 1 mg PO TID PRN Anxiety 09/01/24 11/23/24 09/03/24 02:00 History tirzepatide (weight loss) 5 mg/0.5 5 mg subcut QWEEK 09/01/24 11/23/24 08/18/24 History mL subcutaneous pen injector (Zepbound) valsartan 160 mg tablet 160 mg PO DAILY 09/01/24 11/23/24 Unknown History vibegron 75 mg tablet (Gemtesa) 75 mg PO DAILY 09/01/24 11/23/24 Unknown History Exam Airway Mallampati Class: II (edentulous on too, missing one front tooth on bottom) TM Dist: >3cm Neck ROM: Full Heart: rrr Lungs: cta Assessment and Plan Assessment Anesthesia Assessment: Anesthesia Plan Discussed Final Anesthetic Review NPO: Yes ASA Class: III Final Preanesthetic Review: No Changes in Pt Med Stat, Meds/Allgs Chart Reviewed and Consent Obtained/Reviewed Patient Risk: Intermediate Procedure Risk: Low Anesthetic Plan Anesthetic Plan: MAC: Disposition: Standard PACU
[2024-11-26] VITALS (13 sets, daily range): BP systolic 127–144; BP diastolic 57–71; PULSE 72–86; RESP 14–22; TEMP 36.4; O2SAT 94–98; BMI 40.4
--- NOTE | ~2024-11-26 | FL_ITS ---
EXAMINATION: XR FLUOROSCOPY WITH IMAGES CLINICAL INFORMATION: Left Genicular nerve block. COMPARISON: 09/02/2024 TECHNIQUE: Fluoroscopy provided to: Dr. Sierra Fluoroscopy time: 20.4 seconds DAP: 1.462 Gycm2 Images: 3 FINDINGS: 3 radiographic spot images of the left knee performed during genicular nerve block. Please refer to the full operative report for details. FL/FL guidance in OR IMPRESSION: Fluoroscopic guidance. Electronically signed by: Levi Conway MD 11/26/2024 02:29 PM EDT
[2024-11-26] MEDS: Albuterol Sulfate (0.083%) 2.5 MG/3 ML VIAL.NEB INHALE (12:37)
[2024-11-26] MEDS: Lactated Ringers 1,000 ML 100 ML IVCONT (12:52)
[2024-11-26 13:03] LABS: Glucose, Whole Blood 107 mg/dL (60-115)
--- NOTE | 2024-11-26 13:06 | P.HPSUR_ITS ---
Pre-Procedural Eval Section A - 24 Hr Update-Section A only Date of Service: 11/26/24 The patient is an INPATIENT: No Changes since office visit: Yes Patient answered all questions The patient has been examined within 24 hours of the surgical procedure. The History & Physical has been completed within 30 days and I have reviewed it.: No Section B - Complete if H&P > 30 days Chief Complaint: Bilateral primary osteoarthritis of knee,pain Details of Present Illness: Left knee pain Relevant Family History (Specify if Yes): No Relevant Social History: None Present Medications: see Short Stay Collaborative assessment Medical History: No relevant PMH History of Previous Operations: No relevant previous surgery Allergies: Allergies Allergy/AdvReac Type Severity Reaction Status Date / Time morphine Allergy Intermediate Nausea Verified 09/15/24 15:24 pregabalin (From Lyrica) Allergy Intermediate Nausea Verified 09/15/24 15:24 Peanut Butter Allergy Mild Rash Verified 11/23/24 14:22 mite-Dermatophagoides Allergy Unknown Unknown Verified 11/23/24 14:22 farinae, juanito (dust mite - [place]) Review of Systems Sugical H&P ROS: Negative: Cardiovascular, Neurological, Psychiatric, Hem-Onc, Allergic/Immunologic, Gastrointestinal, Genitourinary, Integumentary, Endocrine and Eyes/Ears/Nose/Throat and Yes, Specify: Constitution, Respiratory (COPD) and Musculoskeletal (Knee osteoarthritis) Exam Surgical H&P Exam: Normal: HEENT, Normal: Heart, Normal: Lungs, Normal: Extremities, Normal: Abdomen, Normal: Skin and Normal: Neurological Plan Diagnosis/Plan: Unchanged I have reviewed the history and physical and performed a pertinent physical examination on my patient. No changes have occurred unless specified. Time Spent With Patient Time: Total time managing care of this patient today _5___ minutes.
[2024-11-26] MEDS: oxyCODONE HCl Immed Release 5 MG TABLET PO (14:07)
--- NOTE | 2024-12-23 08:09 | W.PM.OPN ---
Operative Note Operative Note Date of Service: 11/26/24 Narrative: GENICULAR NERVES COOLED RADIOFREQUENSY ABLATION. ?Informed consent was explained to the patient. All questions were explained and answered. The patient was taken inside the operating room. The patient was positioned supine on operating table with her?left?leg elevated on a gel bin. ASA monitors were applied and the patieient was?deeply?sedated. ?Time-out was performed delineating correct site, side, the nature of the procedure, patient's allergy, preoperative antibiotic if needed. All operating room staff was participating in OR time-out procedure. C-arm was brought over the operating field and picture of the?left knee was demonstrated on the screen. Anterolateral and anteromedial surfaces of the knee were prepped with chloroprep and draped with utility towels. The point of interest were delineated for: 1.superior lateral genicular nerve as the confluence of the metaphysis of the? femur with corresponding diaphysis on the lateral silhouette of the femur distal bone, 2.superior medial genicular nerve (suprapatelar saphenous nerve) the point of interest was delineated as the confluence of the silhouette of metaphysis of the femur with corresponding diaphysis on the medial silhouette on the femoral distal bone. 3.inferior medial genicular nerve (suprapatellar saphenous nerve) the point of interest was delineated as the confluence of metaphysis of the proximal tibia on the medial side with corresponding diaphysis of the same bone. ?The projections of the points of interest on anterior surface of the?left?knee was injected with small amount of lidocaine 2% 1-to 2 ml. After that 3 cooled radiofrequency canulas?75 mm long?were driven to? the point of interest in tunnel vision fashion. When needles gently contacted the bones the position of the C-arm was switched to the lateral view, care was taken to superimpose the the femoral condiles one over the other. The position of the canulas were adjusted to assure that the tip of the canulas are located at the mid shaft of each of the above described bones. ?After that small amount of mixture of lidocaine 0.5% mixed with ropivacaine? 0.5%? and a trace amount of kenalog was injected into each canula position.? total amount of local anesthetics was 4.5 cc.? The cooled RFA machine was connected to the canulas in usual fashion and energy applied with temperature of the canulas of 60 degrees C, for the 2.5 minutes. When energy application was completed the canulas were removed and sterile dressing was applied. ?Patient? was awaken and went to PACU where recovered uneventfully.
== END 2024-11-26 14:56 | disposition home or self-care (01) ==
PROVIDERS: PCP Internal Medicine; Visit Provider Anesthesiology
PROC: (CPT 64624; principal; 2024-11-26 13:00)
DX: M17.12 Unilateral primary osteoarthritis, left knee (principal); G89.4 Chronic pain syndrome; M25.562 Pain in left knee; I12.9 Hypertensive chronic kidney disease with stage 1 through stage 4 chronic kidney disease, or unspecified chronic kidney disease; E11.22 Type 2 diabetes mellitus with diabetic chronic kidney disease; N18.9 Chronic kidney disease, unspecified; E66.9 Obesity, unspecified; Z68.39 Body mass index [BMI] 39.0-39.9, adult; J44.9 Chronic obstructive pulmonary disease, unspecified; Z79.85 Long-term (current) use of injectable non-insulin antidiabetic drugs; Z88.5 Allergy status to narcotic agent; Z88.8 Allergy status to other drugs, medicaments and biological substances; Z98.890 Other specified postprocedural states; Z87.891 Personal history of nicotine dependence
CPT/HCPCS: 64624; 82947; J0131; J2003; J2250; J2405; J2704; J2795; J3010; J3301

== ENCOUNTER → 2024-11-26 11:26 | Outpatient (BNV) | payer OTHER, SELFPAY | PROVIDERS: PCP Internal Medicine; Visit Provider Anesthesiology | DX: M25.562 Pain in left knee (principal) | CPT/HCPCS: 64624 ==

== ENCOUNTER 2025-01-21 11:23 | Outpatient (AMB) | payer OTHER, SELFPAY ==
--- OUTSIDE RECORDS SUMMARY | 2025-01-19 09:03 | XMS_ITS | Encounter Summary ---
Author Organization [employer] Address [address] [place] [address] Care Team Providers Care English And Reading Instructor Name Role Phone Sherrie Valadez MD Primary Care Provider Reason for Referral * Hospital - Outpatient (Routine) - Authorized Specialty Diagnoses / Procedures Referred By Matthew schaffer Referred To Contact Gastroenterology Diagnoses Dysphagia, unspecified type Gastroparesis Pancreatic lesion Procedures EGD Anesthesia - MAC; [facility] ENDOSCOPY Leena Ward MD [address] [place] [address] Phone: tel: fax: [facility] Endoscopy [address] [place] [address] Phone: tel: Referral ID Status Reason Start Date Expiration Date V isits Requested Visits Authorized [id number] Authorized 11/24/2024 11/24/2025 1 1 Reason for Visit * Hospital - Outpatient (Routine) - Authorized Specialty Diagnoses / Procedures Referred By Matthew schaffer Referred To Contact Gastroenterology Diagnoses Dysphagia, unspecified type Gastroparesis Pancreatic lesion Procedures EGD Anesthesia - MAC; [facility] ENDOSCOPY Leena Ward MD [address] [place] [address] Phone: tel: fax: [facility] Endoscopy [address] [place] [address] Phone: tel: Referral ID Status Reason Start Date Expiration Date V isits Requested Visits Authorized [id number] Authorized 11/24/2024 11/24/2025 1 1 Encounter Details Date Type Department Care Team (Latest Contact Info) Description 01/19/2025 9:03 AM EDT Hospital Encounter [facility] Endoscopy [address] [place] [address] Leena Ward MD [address] [phone] Benjamin Lux CRNA [address] [place] [address] Morro Monsivais MD [address] [place] [address] Dysphagia, unspecified type; Gastroparesis; Pancreatic lesion Social History Tobacco Use Types Packs/Day Years Used Date Smoking Tobacco: Former Cigarettes Q uit: 08/03/2002 Smokeless Tobacco: Never Alcohol Use Standard Drinks/Week Comments No 0 (1 standard drink = 0.6 oz pur e alcohol) Interpersonal Safety Answer Date Record ed Physical Abuse Unrecognized value 01/19/2025 Verbal Abuse Unrecognized value 01/19/2025 Comments Unknown Sex and Gender Information Value Date Recorded Sex Assigned at Not on file Legal Sex Female 2:32 PM EDT Gender Identity Not on file Sexual Orientation Not on file documented as of this encounter Last Filed Vital Signs Vital Sign Reading Time Taken Comments Blood Pressure 122/75 01/19/2025 10:21 AM EDT Pulse 75 01/19/2025 10:21 AM EDT Temperature 36.8 C (98.2 F) 01/19/2025 10:01 AM EDT Respiratory Rate 18 01/19/2025 10:21 AM EDT Oxygen Saturation 99% 01/19/2025 10:21 AM EDT Inhaled Oxygen Concentration - - Weight 97.5 kg (215 lb) 01/19/2025 9:31 AM EDT Height 154.9 cm (5' 1 ) 01/19/2025 9:31 AM EDT Body Mass Index 40.62 01/19/2025 9:31 AM EDT documented in this encounter Progress Notes * Jabier Beltran RN - 01/19/2025 10:00 AM EDT Problem: Sensory: Acute Pain Goal: Pain level will improve or be tolerable Outcome: Adequate for Discharge * Opal Smith RN - 01/19/2025 9:25 AM EDT Problem: Sensory: Acute Pain Goal: Pain level will improve or be tolerable Outcome: Progressing documented in this encounter H&P Notes * Leena Ward MD - 01/19/2025 10:00 AM EDT Pre-Op Diagnosis: dysphagia, esophagram 05/2024 with small hiatal hernia and hang up of pill at GE junction Proposed Procedure: EGD Performing Surgeon/MD/Endoscopist: Leena Ward MD Medical/History: Medical History[1]Surgical History[2] Medications/Allergies: Prior to Admission medications Medication Sig Start Date End Date Taking? Authorizing Provider albuterol 2.5 mg /3 mL (0.083 %) nebulizer solution Take 3 mL (2.5 mg total) by nebulization every 4 (four) hours if needed for wheezing. 10/20/24 04/18/25 Yes Annabelle Gross NP albuterol HFA (Ventolin HFA) 90 mcg/actuation inhaler Inhale 2 puffs by mouth every 4 (four) hours if needed for wheezing. 06/02/24 01/19/25 Yes Annabelle Gross NP amLODIPine (NORVASC) 5 mg tablet Take 1 tablet (5 mg total) by mouth 1 (one) time each day. 10/27/24Yes Sherrie Valadez MD atorvastatin (LIPITOR) 10 mg tablet Take 1 tablet (10 mg total) by mouth 1 (one) time each day. 03/10/24 01/19/25 Yes Sherrie Valadez MD brinzolamide (AZOPT) 1 % ophthalmic suspension 04/05/24 Yes Historical Provider, wayqikueyr-vhvswczp-qjagscqlqh (Breztri Aerosphere) 160-9-4.8 mcg/actuation HFA aerosol inhaler inhaler Inhale 2 puffs by mouth 2 (two) times a day. 10/20/24 10/20/25 Yes Annabelle Gross NP cholecalciferol (Vitamin D3) 50 mcg (2,000 unit) capsule Take 1 capsule (2,000 Units total) by mouth 1 (one) time each day. 10/27/24 Yes Sherrie Valadez MD ferrous sulfate 325 mg (65 mg iron) EC tablet Take 1 tablet (325 mg total) by mouth 1 (one) time each day. 07/04/22 Yes Historical Provider, hydroCHLOROthiazide (MICROZIDE) 12.5 mg capsule Take 1 capsule (12.5 mg total) by mouth 1 (one) time each day. 10/27/24 Yes Sherrie Valadez MD ketorolac (ACULAR) 0.5 % ophthalmic solution 1 drop 3 (three) times a day. 04/05/24 Yes Historical Provider, LORazepam (ATIVAN) 1 mg tablet 1 tablet (1 mg total). 03/27/18 Yes Historical Provider, omeprazole (PriLOSEC) [address] capsule TAKE 1 CAPSULE BY MOUTH TWICE A DAY 12/13/24 Yes DADA Ballesteros valsartan (DIOVAN) 160 mg tablet Take 1 tablet (160 mg total) by mouth 1 (one) time each day. 10/27/24 Yes Sherrie Valadez MD diclofenac (VOLTAREN) 75 mg EC tablet Take 1 tablet (75 mg total) by mouth 2 (two) times a day if needed (pain). Do not crush, chew, or split. Patient not taking: Reported on 11/24/2024 06/23/24 Sherrie Valadez MD EPINEPHrine (EpiPen 2-Jose Angel) 0.3 mg/0.3 mL injection Inject 0.3 mL (0.3 mg total) into the thigh. 02/28/23 Historical Provider, hydrocortisone (Procto-Med HC) 2.5 % rectal cream Insert into the rectum 2 (two) times a day for 10days. 11/24/24 12/04/24 DADA Ballesteros hydrocortisone 2.5 % cream Apply to are bid as needed 10/16/20 Historical Provider, latanoprost (XALATAN) 0.005 % ophthalmic solution Administer 1 drop into affected eye(s). Patient not taking: Reported on 11/24/2024 02/07/23 Historical Provider, loratadine (CLARITIN) 10 mg tablet Take 1 tablet (10 mg total) by mouth 1 (one) time each day. 06/03/23 Historical Provider, metoclopramide (REGLAN) 5 mg tablet Take 1 tablet (5 mg total) by mouth 3 (three) times a day before meals. 11/24/24 11/24/25 DADA Ballesteros sodium chloride (AYR) 0.65 % nasal drops Administer 1 spray into affected nostril(s). 03/20/23 Historical Provider, tirzepatide, weight loss, (Zepbound) 2.5 mg/0.5 mL injection Inject 0.5 mL (2.5 mg total) under theskin every 7 (seven) days for 4 doses. 01/06/25 01/28/25 La Ruth MD vibegron (Gemtesa) 75 mg tablet tablet Take 1 tablet (75 mg total) by mouth 1 (one) time each day. 02/07/23 Historical Provider, Patient Age:75 y.o. Vitals: Vitals: 01/19/25 0931 BP: 131/68 Pulse: 77 Resp: 18 Temp: 36.6 ??C (97.9 ??F) SpO2: 97% Physical Exam: Mental Status: Clear HEENT: WNL Heart: WNL Lungs: WNL Abdomen: WNL Extremities: WNL Neuro: WNL Diagnosis/Plan: EGD with possible dilation [1] Past Medical History: Diagnosis Date Essential hypertension, benign DX:Essential hypertension, benign GERD (gastroesophageal reflux disease) DX:GERD (gastroesophageal reflux disease) Historical Medical DX DX:Emphysema Osteoarthritis of left knee 08/15/2020 DX:Osteoarthritis of left knee Osteoporosis DX:Osteoporosis Type II or unspecified type diabetes mellitus without mention of complication, uncontrolled DX:Type II or unspecified type diabetes mellitus without mention of complication, uncontrolled [2] Past Surgical History: Procedure Laterality Date BLADDER AUGMENTATION bladder lift CHOLECYSTECTOMY PROCEDURE: HISTORICAL CHOLECYSTECTOMY COLONOSCOPY CYSTOSCOPY LEG SURGERY PROCEDURE: HISTORICAL LEG SURGERY; COMMENT: removal of benign tumor TUBAL LIGATION PROCEDURE: HISTORICAL TUBAL LIGATION documented in this encounter Procedure Notes * Jabier Beltran RN - 01/19/2025 10:00 AM EDT Pt alert and oriented Tolerating po intake well Md bedside to speak with pt Call [place] bedside All belongings returned to pt documented in this encounter Plan of Treatment Upcoming Encounters Date Type Department Care Team (Late st Contact Info) Description 01/26/2025 9:15 AM EDT Appointment Radiology Department [address] [address] 02/09/2025 8:55 AM EST Office Visit Pulmonology - [place] [address] [facility] [address] [place] [phone] Annabelle Gross, SONIA [address] [place] [phone] 03/09/2025 11:30 AM EST Office Visit Adult [address] [phone] Sherrie Valadez MD [address] [place] [phone] 04/06/2025 3:00 PM EST Office Visit Gastroenterology - [address] [facility] [address] [place] [phone] Chaya Huertas PA [address] [facility] [address] [place] [address] 06/08/2025 8:00 AM EDT Office Visit Adult Medicine [facility] [address] [place], [place] [phone] Sherrie Valadez MD [address] [place], [place] 06/16/2025 9:00 AM EDT Office Visit Bariatric Surgery [address] [place] [address] La Ruth MD [address] [place] [phone] documented as of this encounter Goals Goal Patient Goal Type Associated Problems Recent Progress Patient-Stated? Author Autogenerat ed Goal Care Plan Autogenerated Problem No Ranjan Wilburn documented as of this encounter Procedures Procedure Name Priority Date/Time Associated Diagnosis Comments EGD Routine 01/19/2025 10:00 AM EDT Dysphagia, unspecified type Gastroparesis Pancreatic lesion documented in this encounter Results * EGD Anesthesia - MAC; [facility] ENDOSCOPY (01/19/2025 10:00 AM EDT) Anatomical Region Laterality Modality Endoscopy 01/19/2025 9:48 AM EDT Impressions 01/19/2025 10:01 AM EDT - Medium-sized hiatal hernia. - Benign-appearing esophageal stenosis. Dilated. - Normal stomach. - Normal examined duodenum. - No specimens collected. Recommendation: - Repeat upper endoscopy PRN for retreatment. Narrative 01/19/2025 10:01 AM EDT [facility] GI Patient Name: Gilda Saleem Procedure Date: 01/19/2025 9:48 AM Date of : 1950 Age: 75 Gender: Female Note Status: Finalized Attending MD: Leena Ward MD, Procedure Date No Time: 01/19/2025 Procedure: Upper GI endoscopy Indications: Dysphagia Providers: Leena Ward MD Referring MD: Sherrie Valadez MD Medicines: Propofol per Anesthesia Complications: No immediate complications. Estimated Blood Loss: Estimated blood loss: none. Procedure: Pre-Anesthesia Assessment: - ASA Grade Assessment: III - A patient with severe systemic disease. After obtaining informed consent, the endoscope was passed under direct vision. Throughout the procedure, the patient's blood pressure, pulse, and oxygen saturations were monitored continuously.The Endoscope was introduced through the mouth, and advanced to the second part of duodenum. The upper GI endoscopy was accomplished without difficulty. The patient tolerated the procedure well. Findings: A medium-sized hiatal hernia was present. One benign-appearing, intrinsic mild (non-circumferential scarring) stenosis was found at the gastroesophageal junction. The stenosis was traversed. A TTS dilator was passed through the scope. Dilation with an 18-19-20 mm x 5.5 cm CRE balloon dilator was performed to 20 mm. The dilation site was examined and showed mild mucosal disruption. The entire examined stomach was normal. The cardia and gastric fundus were normal on retroflexion. The examined duodenum was normal. Procedure Code(s): --- Professional --- 65644, Esophagogastroduodenoscopy, flexible, transoral; with transendoscopic balloon dilation of esophagus (less than 30 mm diameter) Diagnosis Code(s): --- Professional --- K44.9, Diaphragmatic hernia without obstruction or gangrene K22.2, Esophageal obstruction R13.10, Dysphagia, unspecified CPT copyright 2020 [employer]. All rights reserved. The codes documented in this report are preliminary and upon phone operator review may be revised to meet current compliance requirements. Leena Ward MD 01/19/2025 10:01:26 AM This report has been signed electronically.Leena Ward MD Number of Addenda: 0 Note Initiated On: 01/19/2025 9:48 AM Scope In: Scope Out: Endoscopy Department at [facility] - [address] [place] [phone] Procedure Note Leena Ward MD - 01/19/2025 [facility] GI Patient Name: Gilda Saleem Procedure Date: 01/19/2025 9:48 AM Date of : 1950 Age: 75 Gender: Female Note Status: Finalized Attending MD: Leena Ward MD, Procedure Date No Time: 01/19/2025 Procedure: Upper GI endoscopy Indications: Dysphagia Providers: Leena Ward MD Referring MD: Sherrie Valadez MD Medicines: Propofol per Anesthesia Complications: No immediate complications. Estimated Blood Loss: Estimated blood loss: none. Procedure: Pre-Anesthesia Assessment: - ASA Grade Assessment: III - A patient with severe systemic disease. After obtaining informed consent, the endoscope was passed under direct vision. Throughout theprocedure, the patient's blood pressure, pulse, and oxygen saturations were monitored continuously.TheEndoscope was introduced through the mouth, and advanced tothe second part of duodenum. The upper GI endoscopy was accomplished without difficulty. The patienttolerated the procedure well. Findings: A medium-sized hiatal hernia was present. One benign-appearing, intrinsic mild (non-circumferential scarring) stenosis was foundat the gastroesophageal junction. The stenosis was traversed. A TTS dilator was passed through thescope. Dilation with an 18-19-20 mm x 5.5 cm CRE balloon dilator was performed to 20 mm. The dilation sitewas examined and showed mild mucosal disruption. The entire examined stomach was normal. The cardia and gastric fundus were normal on retroflexion. The examined duodenum was normal. Procedure Code(s): --- Professional --- 76272, Esophagogastroduodenoscopy, flexible, transoral; with transendoscopic balloon dilation of esophagus (less than 30 mm diameter) Diagnosis Code(s): --- Professional --- K44.9, Diaphragmatic hernia without obstruction or gangrene K22.2, Esophageal obstruction R13.10, Dysphagia, unspecified CPT copyright 2020 [employer]. All rights reserved. The codes documented in this report are preliminary and upon phone operator reviewmay be revised to meet current compliance requirements. Leena Ward MD 01/19/2025 10:01:26 AM This report has been signed electronically.Leena Ward MD Number of Addenda: 0 Note Initiated On: 01/19/2025 9:48 AM Scope In: Scope Out: Endoscopy Department at [facility] - [address] [place] [phone] IMPRESSION: - Medium-sized hiatal hernia. - Benign-appearing esophageal stenosis. Dilated. - Normal stomach. - Normal examined duodenum. - No specimens collected. Recommendation: - Repeat upper endoscopy PRN for retreatment. Leena Ward MD GI~PROCEDURE ORDERABLES Final Result documented in this encounter Visit Diagnoses Diagnosis Dysphagia, unspecified type Gastroparesis Pancreatic lesion documented in this encounter Orders Discharge Count Last Ordered Date First Orde red Date DISCHARGE PATIENT 1 01/19/2025 documented in this encounter Additional Health Concerns Active Problems Noted Date Diagnosed Date Autogenerated Problem 12/27/2024 Assessment Noted Time PHQ-9 Depression Total Score: 2 06/03/19 25 11:36 AM EST documented as of this encounter Care Teams English And Reading Instructor Relationship Specialty Start Date End Date Sherrie Valadez MD [address] [place] [address] PCP - General 12/24/22 documented as of this encounter
--- OUTSIDE RECORDS SUMMARY | 2025-01-19 09:45 | XMS_ITS | Encounter Summary ---
Author Organization [employer] Address [address] [place] [address] Care Team Providers Care Booking Supervisor Name Role Phone Sherrie Valadez MD Primary Care Provider Encounter Details Date Type Department Care Team (Late st Contact Info) Description 01/19/2025 9:45 AM EDT Anesthesia Event [facility] Endoscopy [address] [place] [address] Morro Monsivais MD [address] [place] [address] Benjamin Lux, DON [address] [place] [address] Anesthesia Record Procedure Summary Procedure Name Responsible Anesthesiologist Anesthesia Start Time Anesthesia Stop Time EGD Morro Monsivais MD 01/19/25 0945 01/19/25 0959 Events Date Time Event Comment 01/19/2025 0934 0945 An Start 0945 In Room 0948 An Start Data The patient wa s reevaluated immediately before moderate or deep sedation use and before anesthesia induction. 0948 Anesthesia Ready 0958 an stop data 0959 An Stop 0959 Handoff to RN I completed my handoff to the receiving nurse during which we: 1. Identified the patient 2. Identified the responsible provider 3. Reviewed the pertinent medical history 4. Discussed the surgical course 5. Reviewed intra-op anesthesia management and issues during anesthesia 6. Set expectations for post-procedure period 7. Allowed opportunity for questions and acknowledgement of understanding. 1000 Out of Room Meds Name Total propofol (DIPRIVAN) injection 10 mg/mL 1 00 mg propofol (DIPRIVAN) infusion 10 mg/mL 19 5 mg lidocaine PF (XYLOCAINE-MPF) local injec tion 2% 100 mg lactated Ringer's infusion 0 mL * Agents No agents on file. * Blood No blood administrations on file. Lines, Drains, and Airways Type Details Placement Removal Peripheral IV Placement Date: 12/30 05/25; Placement Time: 933; Catheter Size: 22 G; Orientation: Left, Posterior; Location: Hand; Insertion Attempts: 1; Patient Tolerance: Tolerated well; Removal Date: 01/19/25; Removal Time: 10101/19/25933 by Opal Smith RN 01/19/25 101 by Jabier Beltran RN documented in this encounter Social History Tobacco Use Types Packs/Day Years [...] as of this encounter Progress Notes * Benjamin Lux CRNA - 01/19/2025 9:58 AM EDT Patient: Gilda Saleem Procedure Summary Date: 01/19/25 Room / Location: [facility] Endoscopy Anesthesia Start: 944 Anesthesia Stop: Procedure: EGD Diagnosis: Dysphagia, unspecified type Gastroparesis Pancreatic lesion Scheduled Providers: Leena Ward MD; Benjamin Lux CRNA; Morro Monsivais MD Responsible Provider: Morro Monsivais MD Anesthesia Type: MAC ASA Status: 3 Anesthesia Plan: MAC Last Vitals: Vitals Value Taken Time BP 119/55 01/19/25 09:58 Temp 97 01/19/25 09:58 Pulse 72 01/19/25 09:58 Resp 22 01/19/25 09:58 SpO2 96 01/19/25 09:58 Pain Score: 2 Anesthesia Post Evaluation Patient location during evaluation: bedside Patient participation: waiting for patient participation Level of consciousness: responsive to light touch Pain score: 0 Pain management: adequate Airway patency: patent Anesthetic complications: no Cardiovascular status: acceptable Respiratory status: acceptable Hydration status: acceptable Nausea: No Vomiting: No There were no known notable events for this encounter. * Morro Monsivais MD - 01/19/2025 9:33 AM EDT 75 y.o. female scheduled for Dysphagia, unspecified type; Gastroparesis; Pancreatic lesion [EGD] Ht Readings from Last 1 Encounters: 01/19/25 1.549 m (61 ) Wt Readings from Last 1 Encounters: 01/19/25 97.5 kg (215 lb) Body mass index is 40.62 kg/m??. Medical History[1] Surgical History[2] Anesthesia complications Denies Allergies[3] Prior to Admission medications Medication Sig Start [...] % ophthalmic suspension 04/05/24 Yes Historical Provider, ndpvwwfkem-fvpihxou-ttahiajwtq (Breztri Aerosphere) 160-9-4.8 mcg/actuation HFA aerosol inhaler [...] spray into affected nostril(s). 03/20/23 Historical Provider, MD miguel, weight loss, (Zepbound) 2.5 mg/0.5 mL injection Inject 0.5 mL (2.5 mg total) under theskin every 7 (seven) days for 4 doses. 01/06/25 01/28/25 La Ruth MD vibegron (Gemtesa) 75 mg tablet tablet Take 1 tablet (75 mg total) by mouth 1 (one) time each day. 02/07/23 Historical Provider, MD Engle have personally reviewed all the patient's medications with them prior to anesthesia. Current In-hospital Medications MEDSSCHEDULED[4] MEDSCONTINUOUS[5] MEDSPRN[6] Social History[7] Is the patient a current smoker (e.g. cigarette, cigar, pip, e-cigarette, or mariajuana)? Yes [] No[] Patient previously instructed to abstain from smoking on the day of procedure? Yes [] No[] Patient smoked on the day of procedure? Yes [] No[] ASPIRE smoking VBR: [] Not interested in quitting [] Interested in quitting- referred to treatment [] Interested in quitting - treatment provided Visit Vitals BP 131/68 Pulse 77 Temp 36.6 ??C (97.9 ??F) (Temporal) Resp 18 Ht 1.549 m (61 ) Wt 97.5 kg (215 lb) SpO2 97% BMI 40.62 kg/m?? Smoking Status Former BSA 1.95 m?? LABS: Lab Results Component Value Date WBC 10.7 11/06/2024 HGB 11.8 11/06/2024 HCT 38.9 11/06/2024 MCV 87.6 11/06/2024 PLT 237 11/06/2024 Lab Results Component Value Date GLUCOSE 91 11/06/2024 CALCIUM 8.9 11/06/2024 NA 138 11/06/2024 K 4.0 11/06/2024 CO2 29 11/06/2024 CL 103 11/06/2024 BUN 12 11/06/2024 CREATININE 0.71 11/06/2024 No results found for: INR , PROTIME No results found for: PTT Relevant Problems Cardio (+) Angiodysplasia of colon (+) Essential hypertension, benign (+) Hepatic hemangioma (+) Hypertension (+) Internal hemorrhoids Pulmonary (+) Asthma (+) Chronic obstructive pulmonary disease (CMS/HCC V24, CMS/HCC V28) (+) Emphysema/COPD GI (+) GERD (gastroesophageal reflux disease) (+) Hepatic hemangioma Other (+) Hepatic hemangioma (+) Primary osteoarthritis of left knee (+) Primary osteoarthritis of right knee (+) Tubular adenoma Clinical information reviewed: Tobacco Allergies Meds Med Hx Surg Hx Fam Hx Soc Hx Anesthesia Plan ASA 3 Anesthesia Plan: MAC Anesthesia Considerations MAC Anesthesia Risks Discussed allergic reaction, dental injury, nausea, serious complications, pain, sore throat and corneal abrasion Plan Factors Patient is not a current smoker Smoking cessation education has not been provided Induction method: intravenous Postoperative administration of opioids is intended. Anesthetic plan and risks discussed with patient. Anesthesia Plan discussed with PUNCH MOLDER. Anesthesia Evaluation Airway Mallampati: II Thyromental distance: >3 FB Neck ROM: fullnot intubatedno noted risk Dental Pulmonary breath sounds clear to auscultation (+) COPD, asthma Cardiovascular (+) hypertension Rhythm: regular Rate: normal Neuro/Psych Mental Status: alert and oriented GI/Hepatic/Renal (+) GERD, liver disease, chronic renal disease Endo/Other (+) diabetes mellitus Abdominal Abdomen: soft. Bowel sounds: normal. PONV RISK SCORE: 2 Vitals: 01/19/25 0931 BP: 131/68 Pulse: 77 Resp: 18 Temp: 36.6 ??C (97.9 ??F) TempSrc: Temporal SpO2: 97% Weight: 97.5 kg (215 lb) Height: 1.549 m (61 ) SpO2 Readings from Last 1 Encounters: 01/19/25 97% WBC Date Value Ref Range Status 11/06/2024 10.7 4.8 - 10.8 K/mcL Final RBC Date Value Ref Range Status 11/06/2024 4.40 3.80 - 4.80 M/mcL Final Hemoglobin Date Value Ref Range Status 11/06/2024 11.8 11.5 - 16.0 g/dL Final Hematocrit Date Value Ref Range Status 11/06/2024 38.9 35.0 - 47.0 % Final Platelets Date Value Ref Range Status 11/06/2024 237 130 - 400 K/mcL Final MCV Date Value Ref Range Status 11/06/2024 87.6 79.0 - 98.0 FL Final Allergies[8] STOP BANG: No data recorded NPO Status: Time of Last Liquid: 2330 Time of Last Solid: 2329 [1] Past Medical History: Diagnosis Date Essential [...] tumor TUBAL LIGATION PROCEDURE: HISTORICAL TUBAL LIGATION [3] Allergies Allergen Reactions Dog Dander Other reaction(s): sneezing Doxycycline Nausea Only Morphine Itching Peanut Hives Pollen Extracts Other reaction(s): itch Pregabalin Heartracing [4] [5] [6] [7] Social History Tobacco Use Smoking status: Former Current packs/day: 0.00 Types: Cigarettes Quit date: 08/03/2002 Years since quittin.4 Smokeless tobacco: Never Substance Use Topics Alcohol use: No Drug use: No [8] Allergies Allergen Reactions Dog Dander Other reaction(s): sneezing Doxycycline Nausea Only Morphine Itching Peanut Hives Pollen Extracts Other reaction(s): itch Pregabalin Heartracing documented in this encounter Plan of Treatment Upcoming Encounters Date Type Department Care Team (Late st Contact Info) Description 01/26/2025 9:15 AM EDT Appointment Radiology Department [address] [phone] 02/09/2025 8:55 AM EST Office Visit Pulmonology - [place] [facility] [address] [place] [phone] Annabelle Gross, SONIA [address] [place] [address] 03/09/2025 11:30 AM EST Office Visit Adult Medicine [address] [phone] Sherrie Valadez MD [address] [place] [address] 04/06/2025 3:00 PM EST Office Visit Gastroenterology - 299 [facility] 299 [facility] [address] [place] [phone] Chaya Huertas PA 175 [facility] 200 [place] [address] 06/08/2025 8:00 AM EDT Office Visit Adult Medicine [address] [phone] Sherrie Valadez MD [address] [place] [address] 06/16/2025 9:00 AM EDT Office Visit Bariatric Surgery - [place] [facility] [address] [place] [phone] La Ruth MD [address] [place] [phone] documented as of this encounter Goals Goal Patient Goal Type Associated Problems Recent Progress Patient-Stated? Author Autogenerat ed Goal Care Plan Autogenerated Problem No Ranjan Wilburn documented as of this encounter Visit Diagnoses Not on filedocumented in this encounter Administered Medications Inactive Administered Medications - up to 3 most recent administrations Medication Order MAR Action Action Date Dose Rate Site lactated Ringer's infusion intravenous, Continuous PRN, Starting on Fri01/19/25 at 0947, Anesthesia Intraprocedure New Bag 01/19/2025 9:47 AM EDT 125 mL/hr lidocaine (PF) (XYLOCAINE-MPF) 2 % injection injection, As needed, Starting on Fri01/19/25 at 0949, Anesthesia Intraprocedure Given 01/19/2025 9:49 AM EDT 100 mg propofoL (DIPRIVAN) infusion 10 mg/mL intravenous, Continuous PRN, Starting on Fri01/19/25 at 0949, Anesthesia Intraprocedure New Bag 01/19/2025 9:49 AM EDT 200 mcg/kg/min 117 mL/hr propofoL (DIPRIVAN) injection intravenous, As needed, Starting on Fri01/19/25 at 0949, Anesthesia Intraprocedure Given 01/19/2025 9:49 AM EDT 100 mg documented in this encounter Additional Health Concerns Active Problems Noted Date Diagnosed Date Autogenerated Problem 12/27/2024 Assessment Noted Time PHQ-9 Depression Total Score: 2 06/03/19 25 11:36 AM EST documented as of this encounter Care Teams Booking Supervisor Relationship Specialty Start Date End Date Sherrie Valadez MD [address] [place] [address] PCP - General 12/24/22 documented as of this encounter
[2025-01-21 11:52] VITALS: BP 152/66; PULSE 75; RESP 16; O2SAT 99; BMI 42.0
--- NOTE | 2025-01-21 11:52 | A.OFFVIS_ITS ---
Vital Signs 01/21/25 11:52 Height 5 ft Weight 215 lb BMI 42.0 BP 152/66 H Blood Pressure Location Lt brachial Position Sitting Respiration 16 Pulse 75 Pulse Source Pulse Oximeter Pulse Oximetry (%) 99 Oxygen Delivery Method Room Air Intake Visit Reasons: S/p (L) Genicular Cooled RFA 11/26/24 Shipping Associate Required: Yes Allergies morphine Allergy (Intermediate, Verified 01/21/25 11:53) Nausea pregabalin (From Lyrica) Allergy (Intermediate, Verified 01/21/25 11:53) Nausea Peanut Butter Allergy (Mild, Verified 01/21/25 11:53) Rash mite-Dermatophagoides farinae, juanito (dust mite - [place]) Allergy (Unknown, Verified 01/21/25 11:53) Unknown HPI Comments Details: The patient is a 75-year-old female presenting with left knee pain. She underwent left genicular RFA in October, which did not alleviate her symptoms. The pain remains unchanged, with occasional numbness extending from the knee downwards. The patient also reports back pain, which radiates from her hips to her leg. The pain in the knee is sometimes stronger than before the procedure, but at times it is similar to the pre-procedure pain. She also complains of right knee pain, chronic in nature. - Onset: Pain persists since the nerve burning procedure in October. - Quality: Pain is sometimes stronger, sometimes similar to pre-procedure levels. - Location: Left knee, with numbness extending from the knee downwards. - Radiation: Back pain radiates from hips to leg. - Exacerbating factors: No specific factors mentioned. - Relieving factors: Initial diagnostic nerve block provided temporary relief. - Affect: Not explicitly discussed. - Analgesia: Current pain level is 8/10 in the left knee. - Adverse Effects: Not explicitly discussed. - Activities of Daily Living: Pain impacts mobility, but specific activities are not detailed. - Aberrant Drug Related Behaviors: Not explicitly discussed. [facility] Medical History Anxiety Fibromyalgia Osteoarthritis OAB (overactive bladder) Osteoporosis GERD (gastroesophageal reflux disease) Rhinitis Neck pain Bilateral hip pain Low back pain Vitamin D deficiency Low iron Gastroparesis COPD (chronic obstructive pulmonary disease) Glaucoma Depression CKD (chronic kidney disease) Asthma HTN (hypertension) HLD (hyperlipidemia) Diabetes Chronic knee pain Surgical History H/O eye surgery H/O bilateral cataract extraction History of bladder surgery Hx of cholecystectomy Social History Are you a primary care director rn to a significant other at home: No Do you presently have visiting nurse or other home services: Yes (HORTICULTURAL NURSERY ASSISTANT daily ) Patient Tobacco Use Status: Former Tobacco user Tobacco use type: Cigarette Advance Directives Date on File: 10/21/08 Review of Systems Narrative - Musculoskeletal: Reports left knee pain. - Neurological: Reports numbness in the knee. - Back: Reports pain radiating from hips to leg. Physical Exam Vital Signs: Last Vital Signs Pulse 75 01/21/25 11:52 Resp 16 01/21/25 11:52 BP 152/66 H 01/21/25 11:52 Pulse Ox 99 01/21/25 11:52 Oxygen Delivery Method Room Air 01/21/25 11:52 BMI result Body Mass Index 42.0 Results Reviewed Results Reviewed: MRI right knee. Medial compartment motion partial limits evaluation but there is a complex tear involving the body and posterior horn of the medial meniscus, and associated with extrusion of the body, diffuse cartilage thinning, local areas of subchondral edema. Lateral compartment motion partly limits evaluation complex tear and willing body of the lateral meniscus. Diffuse cartilage thinning. No subchondral edema. Patellofemoral compartment or cartilage defects or subchondral edema. Tendons quadriceps patellar and popliteus tendons are intact. Ligaments anterior and posterior cruciate ligaments are intact. Medial collateral ligaments is intact. Intermediate signal intensity and mild irregularity Mercy of the proximal segment of the lateral collateral ligaments suggest sprint. Assessment & Plan Assessment & Plan (1) Osteoarthritis of knees, bilateral: Code(s): M17.0 - Bilateral primary osteoarthritis of knee Category: Medical (2) Bilateral knee pain: Code(s): M25.561 - Pain in right knee; M25.562 - Pain in left knee Category: Medical (3) Chronic pain syndrome: Code(s): G89.4 - Chronic pain syndrome Category: Medical Plan The patient will be scheduled for a follow-up appointment with Dr. Sierra to discuss the ongoing pain in her left knee and potential management strategies. Consideration will be given to whether a similar procedure should be performed on the right knee, given the lack of relief from the initial procedure on the left knee. Patient reports no relief since the left genicular RFA. She denies any untoward effects of the procedure. Patient was informed and verbally consented to the use of an ambient scribe for clinic note documentation during this visit. Patient Instructions: - Schedule a follow-up appointment with Dr. Sierra - Monitor pain levels and report any changes. Coding Level of Care Code Est Pt Level 3 (62641) Complex EM visit Add On G2211 Diagnoses Osteoarthritis of knees, bilateral M17.0 Bilateral knee pain M25.561; M25.562 Chronic pain syndrome G89.4
--- OUTSIDE RECORDS SUMMARY | 2025-01-21 13:48 | XMS_ITS | Patient Health Record ---
Author Organization [facility] Address [address] [place] [address] Care Team Providers Care Ball Shagger Name Role Phone Abner Norton Jr [phone] Reason For Referral No Information Plan Of Treatment No Information
--- OUTSIDE RECORDS SUMMARY | 2025-01-21 13:48 | XMS_ITS | Clinical Summary ---
Author Organization [facility] Address [address] [place] [address] Care Team Providers Care Operations Director Name Role Phone Amparo Vann DMD Primary Care Provider [phone] Source Comments PLEASE NOTE, if this patient [...] Plan of Treatment Not on file Insurance [facility] [employer] [place] Care Teams Operations Director Relationship Specialty Start Date End Date Amparo Vann DMD [address] [place] [address] PCP - General 05/01/19
--- OUTSIDE RECORDS SUMMARY | 2025-01-21 13:49 | XMS_ITS | Encounter Summary ---
Author Organization [employer] Address [address] [place] [address] Care Team Providers Care Production Operations Inspector Name Role Phone Sherrie Valadez MD Primary Care Provider [phone] Reason for Referral * Consultation (Routine) - Authorized Specialty Diagnoses / Procedures Referred By Matthew schaffer Referred To Contact Gastroenterology Diagnoses Liver lesion Sherrie Valadez MD [address] [place] [address] Phone: tel: fax: Gastroenterology - [address] [facility] [address] [place] [address] Phone: tel: fax: Referral ID Status Reason Start Date Expiration Date Visits Requested Visits Authorized [id number] Authorized Specialty Services Required 01/05/2025 01/05/2026 1 1 * Imaging (Routine) - Pending Review Specialty Diagnoses / Procedures Referred By Matthew schaffer Referred To Contact Radiology Diagnoses Cyst of ovary, unspecified laterality Procedures US Pelvis Non OB Complete w Transvaginal Sherrie Valadez MD [address] [place] [address] Phone: tel: fax: [address] [address] Phone: tel: Referral ID Status Reason Start Date Expiration Date V isits Requested Visits Authorized [id number] Pending Review 01/05/2025 01/05/2026 1 1 * Consultation (Routine) - Closed Specialty Diagnoses / Procedures Referred By Matthew t Referred To Contact Gynecology Diagnoses Cyst of ovary, unspecified laterality Sherrie Valadez MD [address] [place], [place] Phone: tel: fax: [facility] - [address] [address] Phone: tel: fax: Referral ID Status Reason Start Date Expiration Date V isits Requested Visits Authorized [id number] Closed Specialty Services Required 01/05/2025 01/05/2026 1 1 Encounter Details Date Type Department Care Team (Late Contact Info) Description 01/05/2025 Results Follow-Up Adult Medicine [facility] [address] [place] [phone] Sherrie Valadez MD [address] [place] [address] Social History Tobacco Use Types Packs/Day Years [...] on file documented as of this encounter Plan of Treatment Upcoming Encounters Date Type Department Care Team (Late Contact Info) Description 01/26/2025 9:15 AM EDT Appointment Radiology Department [facility] [address] [place] [address] 02/09/2025 8:55 AM EST Office Visit Pulmonology [facility] 175 [facility] 200 [place] [address] Annabelle Gross NP [address] [place] [address] 03/09/2025 11:30 AM EST Office Visit Adult Medicine [address] [phone] Sherrie Valadez MD [address] [place] [address] 04/06/2025 3:00 PM EST Office Visit Gastroenterology - 299 [facility] 299 [facility] [address] [place] [address] Chaya Huertas PA 175 [facility] 200 [place] [address] 06/08/2025 8:00 AM EDT Office Visit Adult [address] [phone] Sherrie Valadez MD [address] [place] [address] 06/16/2025 9:00 AM EDT Office Visit Bariatric Surgery [facility] 175 [facility] [address] [place] [phone] La Ruth MD [address] [place] [address] Scheduled Orders Name Type Priority Associated Diagnoses Orde r Schedule US Pelvis Non OB Complete w Transvaginal Imaging Routine Cyst of ovary, unspecified laterality Expected: 01/05/2025, Expires: 01/05/2026 Scheduled Referrals Name Type Priority Associated Diagnoses Order Schedule Ambulatory referral to Gynecology Outpatient Referral Routine Cyst of ovary, unspecified laterality 1 Occurrences starting 01/05/2025 until 01/05/2026 Ambulatory referral to Gastroenterology Outpatient Referral Routine Liver lesion 1 Occurrences starting 01/05/2025 until 01/05/2026 documented as of this encounter Goals Goal Patient Goal Type Associated Problems Recent Progress Patient-Stated? Author Autogenerat ed Goal Care Plan Autogenerated Problem No Ranjan Wilburn documented as of this encounter Visit Diagnoses Diagnosis Cyst of ovary, unspecified laterality- Primary Liver lesion Other specified disorders of liver documented in this encounter Additional Health Concerns Active Problems Noted Date Diagnosed Date Autogenerated Problem 12/27/2024 Assessment Noted Time PHQ-9 Depression Total Score: 2 06/03/19 25 11:36 AM EST documented as of this encounter Care Teams Production Operations Inspector Relationship Specialty Start Date End Date Sherrie Valadez MD [address] [place] [address] PCP - General 12/24/22 documented as of this encounter
--- OUTSIDE RECORDS SUMMARY | 2025-01-21 13:49 | XMS_ITS | Encounter Summary ---
Author Organization [employer] Address [address] [place] [address] Care Team Providers Care Pants Maker Name Role Phone Sherrie Valadez MD Primary Care Provider Encounter Details Date Type Department Care Team (Late Contact Info) Description 12/31/2024 Results Follow-Up Adult Medicine [address] [phone] Sherrie Valadez MD [address] [place] [address] Social History Tobacco Use Types Packs/Day Years [...] 01/26/2025 9:15 AM EDT Appointment Radiology Department - [address] [phone] 02/09/2025 8:55 AM EST Office Visit Pulmonology - [place] [address] [facility] [address] [place] [address] Annabelle Gross NP [address] [place] [phone] 03/09/2025 11:30 AM EST Office Visit Adult [address] [phone] Sherrie Valadez MD [address] [place], [place] 04/06/2025 3:00 PM EST Office Visit Gastroenterology - 299 [facility] 299 [facility] [address] [place] [phone] Chaya Huertas PA 175 [facility] [address] [place] [address] 06/08/2025 8:00 AM EDT Office Visit Adult [facility] [address] [place] [address] Sherrie Valadez MD [address] [place], [place] 06/16/2025 9:00 AM EDT Office Visit Bariatric Surgery - [place] 175 [facility] 120 [place] [phone] La Ruth MD 230 [place] [phone] documented as of this encounter Goals Goal Patient Goal Type Associated Problems Recent Progress Patient-Stated? Author Autogenerat ed Goal Care Plan Autogenerated Problem Ranjan Taylor documented as of this encounter Visit Diagnoses Not on filedocumented in this encounter Additional Health Concerns Active Problems Noted Date Diagnosed Date Autogenerated Problem 12/27/2024 Assessment Noted Time PHQ-9 Depression Total Score: 2 06/03/19 25 11:36 AM EST documented as of this encounter Care Teams Pants Maker Relationship Specialty Start Date End Date Sherrie Valadez MD [address] [place] [address] PCP - General 12/24/22 documented as of this encounter
--- OUTSIDE RECORDS SUMMARY | 2025-01-21 13:49 | XMS_ITS | Clinical Summary ---
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 3 Active ferrous sulfate 325 mg (65 mg iron) EC tablet Take 1 tablet (325 mg total) by mouth 1 (one) time each day. 3 Active hydrocortisone 2.5 % cream Apply to are bid as needed 1 Active latanoprost (XALATAN) 0.005 % ophthalmic solution Administer 1 drop into affected eye(s). 3 Active LORazepam (ATIVAN) 1 mg tablet 1 tablet (1 mg total). 8 Active sodium chloride (AYR) 0.65 % nasal drops Administer 1 spray into affected nostril(s). 3 Active vibegron (Gemtesa) 75 mg tablet tablet Take 1 tablet (75 mg total) by mouth 1 (one) time each day. 3 Active loratadine (CLARITIN) 10 mg tablet Take 1 tablet (10 mg total) by mouth 1 (one) time each day. 4 Active atorvastatin (LIPITOR) 10 mg tablet Take 1 tablet (10 mg total) by mouth 1 (one) time each day. 90 tablet 4 Active ketorolac (ACULAR) 0.5 % ophthalmic solution 1 drop 3 (three) times a day. 5 Active brinzolamide (AZOPT) 1 % ophthalmic suspension 5 Active albuterol HFA (Ventolin HFA) 90 mcg/actuation inhalerIndicati ons:Chronic obstructive pulmonary disease with acute lower respiratory infection (CMS/[facility] V24, CMS/HCC V28) Inhale 2 puffs by mouth every 4 (four) hours if needed for wheezing. 36 g 5 5 Active diclofenac (VOLTAREN) 75 mg EC tablet Take 1 tablet (75 mg total) by mouth 2 (two) times a day if needed (pain). Do not crush, chew, or split. 90 tablet 5 Active Additional Information Patient not taking.Reported on 11/24/2024 albuterol 2.5 mg /3 mL (0.083 %) nebulizer solutionIndicat ions:Chronic obstructive pulmonary disease with acute lower respiratory infection (CMS/HCC V24, CMS/HCC V28) Take 3 mL (2.5 mg total) by nebulization every 4 (four) hours if needed for wheezing. 300 mL 1 5 04/18/19 26 Active budesonide-glyc opyr-formoterol (Breztri Aerosphere) 160-9-4.8 mcg/actuation HFA aerosol inhaler inhalerIndicati ons:Chronic obstructive pulmonary disease with acute lower respiratory infection (CMS/HCC V24, CMS/HCC V28) Inhale 2 puffs by mouth 2 (two) times a day. 32.1 g 11 5 10/21/19 26 Active cholecalciferol (Vitamin D3) 50 mcg (2,000 unit) capsule Take 1 capsule (2,000 Units total) by mouth 1 (one) time each day. 90 each 3 5 Active amLODIPine (NORVASC) 5 mg tablet Take 1 tablet (5 mg total) by mouth 1 (one) time each day. 90 tablet 5 Active hydroCHLOROthia zide (MICROZIDE) 12.5 mg capsule Take 1 capsule (12.5 mg total) by mouth 1 (one) time each day. 90 capsule 1 5 Active valsartan (DIOVAN) 160 mg tablet Take 1 tablet (160 mg total) by mouth 1 (one) time each day. 90 tablet 1 5 Active hydrocortisone (Procto-Med HC) 2.5 % rectal cream Insert into the rectum 2 (two) times a day for 10 days. 30 g 5 Active metoclopramide (REGLAN) 5 mg tablet Take 1 tablet (5 mg total) by mouth 3 (three) times a day before meals. 90 each 3 5 11/25/19 26 Active omeprazole (PriLOSEC) [address] capsule TAKE 1 CAPSULE BY MOUTH TWICE A DAY 180 capsule 3 5 Active tirzepatide, weight loss, (Zepbound) 2.5 mg/0.5 mL injectionIndica tions:Class 3 severe obesity due to excess calories with serious comorbidity and body mass index (BMI) of 40.0 to 44.9 in adult ([facility] V24, [facility] V28) Inject 0.5 mL (2.5 mg total) under the skin every 7 (seven) days for 4 doses. 2 mL 5 01/29/20 Active Active Problems Problem Noted Date Diagnosed Date Liver mass 11/18/2024 Lesion of pancreas 11/18/2024 Asthma 05/04/2024 Chronic kidney disease 05/04/2024 Depression 05/04/2024 Glaucoma 05/04/2024 Hypertension 05/04/2024 Right ovarian cyst 05/04/2024 Emphysema/COPD 05/04/2024 Overview (12/29/2024): 12/29/24 Regulatory IMO Update Diabetes mellitus without co mplication ([facility] V24, [facility] V28) 01/05/2024 Cyst of left kidney 12/03/2023 [...] Severe obesity (BMI 35.0-39. 9) with comorbidity (CMS/HCC V24, CMS/HCC V28) 08/15/2020 Hepatic hemangioma 05/13/2018 Chronic obstructive pulmonar y disease (CMS/HCC V24, CMS/HCC V28) 09/08/2017 Pulmonary nodules 07/28/2017 Overview (05/26/2023): CT Chest 07/28/18: Stable Pulmonary Nodules. No further workup needed. Anxiety 09/14/2012 Overview (05/26/2023): On chronic lorazepam Fibromyalgia 08/17/2012 Overview (05/26/2023): Lyirca caused palpitations. Gabapentin caused nausea Encounters Date Type Department Care Team Description 01/19/2025 9:45 AM EDT Anesthesia Event [facility] Endoscopy [address] [place] [phone] Morro Monsivais MD Guerin, Erik R, CRNA 01/19/2025 9:03 AM EDT Hospital Encounter [facility] [address] [place] [phone] Leena Ward MD Guerin, Erik R, CRNA Saliga, Jesse L, MD Dysphagia, unspecified type; Gastroparesis; Pancreatic lesion 01/06/2025 9:45 AM EDT Office Visit Bariatric Surgery - [place] [address] [facility] [address] [place] [phone] La Ruth MD Class 3 severe obesity due to excess calories with serious comorbidity and body mass index (BMI) of 40.0 to 44.9 in adult (CMS/HCC V24, CMS/HCC V28) (Primary Dx) 01/05/2025 Results Follow-Up [address] [phone] Sherrie Fields MD 12/31/2024 8:19 AM EDT - 12/31/2024 11:59 PM EDT Hospital Encounter [facility] MRI [address] [place] [phone] Discharge Disposition: Home or Self Care 12/31/2024 Results Follow-Up [address] [phone] Sherrie Fields MD 11/24/2024 2:00 PM EDT Office Visit Gastroenterology - [address] [facility] [address] [place] [phone] Chaya Huertas PA Dysphagia, unspecified type (Primary Dx); Gastroparesis; Pancreatic lesion 11/18/2024 9:00 AM EDT Office Visit [address] [phone] Sherrie Fields MD Right ovarian cyst (Primary Dx); Lesion of pancreas; Liver mass; Chronic pain of both lower extremities; Chronic pain of left knee; Primary hypertension; Chronic obstructive pulmonary disease, unspecified COPD type (CMS/[facility] V24, CMS/HCC V28); Hyperlipidemia, unspecified hyperlipidemia type 11/08/2024 Telephone Adult Medicine [facility] [address] [place] [phone] Amada Rivera MA 11/06/2024 2:03 PM EDT - 11/06/2024 6:08 PM EDT Emergency [facility] Emergency [address] [place] [phone] Sonam Palmer MD Abdominal pain, unspecified abdominal location (Primary Dx) Discharge Disposition: Home or Self Care 10/28/2024 Telephone Pulmonology [facility] [address] [facility] [address] [place] [address] Annabelle Gross NP 10/25/2024 Telephone Pulmonology [facility] [address] [facility] [address] [place] [address] Valeri Nesbitt MA from Last 3 Months Immunizations Immunization Administration Dates Next Due Influenza trivalent, 0.5mL [...] tumor TUBAL LIGATION PROCEDURE: HISTORICAL TUBAL LIGATION COLONOSCOPY BLADDER AUGMENTATION bladder lift CYSTOSCOPY Medical History Medical History Date Comments Historical Medical DX DX:Tito wellington Osteoporosis DX:Osteoporosis Type II or unspecified type [...] Mass Index 40.62 01/19/2025 9:31 AM EDT Plan of Treatment Upcoming Encounters Date Type Department Care Team (Late st Contact Info) Description 01/26/2025 9:15 AM EDT Appointment Radiology Department [address] [phone] 02/09/2025 8:55 AM EST Office Visit Pulmonology - [address] [place] [address] Annabelle Gross NP [address] [place] [phone] 03/09/2025 11:30 AM EST Office Visit [address] [phone] Sherrie Fields MD [address] [place], [place] 04/06/2025 3:00 PM EST Office Visit Gastroenterology - [address] [facility] [address] [facility] [address] [place] [phone] Chaya Huertas PA 175 [facility] [address] [place] [address] 06/08/2025 8:00 AM EDT Office Visit Adult [address] [phone] Sherrie Fields MD [address] [place], [place] 06/16/2025 9:00 AM EDT Office Visit Bariatric Surgery - [place] [address] [facility] [address] [place] [phone] La Ruth MD [address] [place] [phone] Health Maintenance Due Date Last Done Comments RSV Immunization Adult Patients (1 - Risk 50-74 years 1-dose series) 01/16/2002 09/17/2023 Diabetes: Annual Foot Exam 04/08/2019 04/08/2018 COVID-19 Vaccine (3 - Pfizer risk series) 09/19/2020 08/22/2020, 08/01/2020 Diabetes: Annual Retina Eye Exam 02/13/2022 02/13/2021 Social Influencers of Health Screening 12/06/2022 Zoster Vaccines (2 of 2) 11/12/2023 09/17/2023 DTaP,Tdap,and Td Vaccines (2 - Td or Tdap) 07/07/2024 07/07/2014 Influenza Vaccine (#1) 2024 3, 02/22/2022, 12/09/2019, Additional history exists Breast Cancer Screening 12/11/2024 12/12/19 23, 11/07/2021, 12/13/2019, Additional history exists Medicare Annual Wellness Visit 06/02/2025 06/02/2024 Diabetes: Blood Sugar Control Test (HGBA1C) 06/29/2025 12/29/2024, 04/14/2024, 12/04/2023, Additional history exists Diabetes: Annual GFR (Glomerular Filtration Rate) 11/06/2025 11/06/2024, 12/04/2023, 12/04/2023, Additional history exists Hypertension/CHF/CAD Annual BMP Blood Test 11/06/2025 11/06/2024, 12/04/2023, 12/04/2023, Additional history exists Diabetes: Annual Urine Albumin-Creatinine Ratio (uACR) 12/29/2025 12/29/2024, 06/03/2023, 05/26/2023 Falls Risk Assessment 01/19/2026 01/19/2025 , 06/02/2024, 10/01/2023 Cholesterol Screening (Lipid Panel) 04/14/2029 04/14/2024, 05/26/2023, 05/26/2023 Colorectal Cancer Screening: Colonoscopy 11/14/2032 11/14/2022, 11/14/2022 Osteoporosis Screening (Bone Density Screening) 12/09/2032 12/09/2022, 11/07/2021 Hepatitis C Screening Completed 04/14/2018 Pneumococcal Vaccine: 50+ Years Completed 04/26/2021, 12/09/2019, 02/10/2017, Additional history exists RSV Immunization Patients Under 20 months Aged Out 09/17/2023 No longer eligible based on patient's age to complete this topic Depression Screening Completed 06/02/2024, 06/03/19 24 HIB Vaccines Aged Out No longer eligi [...] on patient's age to complete this topic Goals Goal Patient Goal Type Associated Problems Recent Progress Patient-Stated? Author Autogenerat ed Goal Care Plan Autogenerated Problem No Ranjan Wilburn Procedures Procedure Name Priority Date/Time Associated Diagnosis Comments EGD Routine 01/19/2025 10:00 AM EDT Dysphagia, unspecified type Gastroparesis Pancreatic lesion MR ABDOMEN WO AND W CONTRAST Routine 12/31/2024 10:03 AM EDT Right ovarian cyst Lesion of pancreas MICROALBUMIN CREATININE URINE RATIO Routine 12/29/2024 12:29 PM EDT Diabetes mellitus without complication (CMS/HCC V24, CMS/HCC V28) HEMOGLOBIN A1C Routine 12/29/2024 10:22 AM EDT Diabetes mellitus without complication (CMS/HCC V24, CMS/HCC V28) ECG ANNOTATED 11/08/2024 CT ABDOMEN PELVIS W CONTRAST STAT 11/06/2024 4:44 PM EDT XR CHEST 1 VIEW STAT 11/06/2024 3:12 PM EDT TROPONIN I HIGH SENSITIVITY STAT 11/06/2024 3:09 PM EDT CBC WITH AUTO DIFFERENTIAL STAT 11/06/2024 3:09 PM EDT LIPASE STAT 11/06/2024 3:09 PM EDT COMPREHENSIVE METABOLIC PANEL STAT 11/06/2024 3:09 PM EDT CBC AND DIFFERENTIAL STAT 11/06/2024 3:09 PM EDT URINALYSIS WITH REFLEX MICROSCOPIC STAT 11/06/2024 3:04 PM EDT URINALYSIS WITH REFLEX MICROSCOPIC STAT 11/06/2024 3:04 PM EDT ECG 12-LEAD STAT 11/06/2024 2:57 PM EDT LIPID PANEL WITH REFLEX TO DIRECT LDL Routine 04/14/2024 9:37 AM EST Hypercholesterolemia FALLS RISK ASSESSMENT Routine 10/01/2023 DEPRESSION SCREENING Routine 06/03/2023 [facility] SCREENING DIGITAL Routine 12/11/2022 11:03 AM EDT Encounter for screening mammogram for malignant neoplasm of breast [facility] DEXA AXIAL SKELETON Routine 12/09/2022 7:43 AM EDT Age-related osteoporosis without current pathological fracture COLONOSCOPY Routine 11/14/2022 DIABETES EYE EXAM Routine 02/13/2021 HEPATITIS C SCREENING Routine 04/14/2018 DIABETES FOOT EXAM Routine 04/08/2018 from Last 3 Months or Most Recently Relevant to Health Maintenance Results * EGD Anesthesia - MAC; [facility] ENDOSCOPY (01/19/2025 10:00 AM EDT) Anatomical Region Laterality Modality Endoscopy 01/19/2025 9:48 AM EDT Impressions 01/19/2025 10:01 AM EDT - Medium-sized hiatal hernia. - Benign-appearing esophageal stenosis. Dilated. - Normal stomach. - Normal examined duodenum. - No specimens collected. Recommendation: - Repeat upper endoscopy PRN for retreatment. Narrative 01/19/2025 10:01 AM EDT [facility] GI Patient Name: Gilda Pearl Procedure Date: 01/19/2025 9:48 AM Date of : 1950 Age: 75 Gender: Female Note Status: Finalized Attending MD: Leena aWrd MD, Procedure Date No Time: 01/19/2025 Procedure: Upper GI endoscopy Indications: Dysphagia Providers: Leena Ward MD Referring MD: Sherrie Fields MD Medicines: Propofol per Anesthesia Complications: No [...] was normal. Procedure Code(s): --- Professional --- 25580, Esophagogastroduodenoscopy, flexible, transoral; with transendoscopic balloon dilation of esophagus (less than 30 mm diameter) Diagnosis Code(s): --- Professional --- K44.9, Diaphragmatic hernia without obstruction or gangrene K22.2, Esophageal obstruction R13.10, Dysphagia, unspecified CPT copyright 2020 [employer]. All rights reserved. The codes documented in this report are preliminary and upon dredging inspector review may be revised to meet current compliance requirements. Leena Ward MD 01/19/2025 10:01:26 AM This report has been signed electronically.Leena Ward MD Number of Addenda: 0 Note Initiated On: 01/19/2025 9:48 AM Scope In: Scope Out: Endoscopy Department at [facility] - [address] [place] [phone] Procedure Note Leena Ward MD - 01/19/2025 [facility] GI Patient Name: Gilda Pearl Procedure Date: 01/19/2025 9:48 AM Date of : 1950 Age: 75 Gender: Female Note Status: Finalized Attending MD: Leena Ward MD, Procedure Date No Time: 01/19/2025 Procedure: Upper GI endoscopy Indications: Dysphagia Providers: Leena Ward MD Referring MD: Sherrie Fields MD Medicines: Propofol per Anesthesia Complications: No [...] was normal. Procedure Code(s): --- Professional --- 57888, Esophagogastroduodenoscopy, flexible, transoral; with transendoscopic balloon dilation of esophagus (less than 30 mm diameter) Diagnosis Code(s): --- Professional --- K44.9, Diaphragmatic hernia without obstruction or gangrene K22.2, Esophageal obstruction R13.10, Dysphagia, unspecified CPT copyright 2020 [employer]. All rights reserved. The codes documented in this report are preliminary and upon dredging inspector reviewmay be revised to meet current compliance requirements. Leena Ward MD 01/19/2025 10:01:26 AM This report has been signed electronically.Leena Ward MD Number of Addenda: 0 Note Initiated On: 01/19/2025 9:48 AM Scope In: Scope Out: Endoscopy Department at [facility] - [address] [place] [phone] IMPRESSION: - Medium-sized hiatal hernia. - Benign-appearing esophageal stenosis. Dilated. - Normal stomach. - Normal examined duodenum. - No specimens collected. Recommendation: - Repeat upper endoscopy PRN for retreatment. us Leena Ward MD GI~PROCEDURE ORDERABLES Final Result * MR Abdomen wo and w Contrast (12/31/2024 10:03 AM EDT) Anatomical Region Laterality Modality Body Magnetic Resonan ce 01/04/2025 9:11 AM EDT Impressions 01/04/2025 9:31 AM EDT 1. A small lesion in the distal pancreatic body demonstrates signal characteristics compatible with a small (benign) lipoma. This is stable dating back to at least 2019. 2. 2 enhancing liver lesions. Characterization on this study is limited, as early postcontrast images are significantly limited by motion. However, both lesions are suspected to represent hemangiomas on review of comparison CT studies, and notably, both lesions are stable dating back to a CT dated 11/02/2019. 3. Incompletely evaluated right ovarian cyst. Consider further evaluation with pelvic ultrasound. -------- FINAL REPORT -------- Dictated By: Peter Schneider Dictated Date: 01/04/2025 09:11 ET Assigned Physician: Peter Schneider Reviewed and Electronically Signed By: Peter Schneider Signed Date: 01/04/2025 09:31 ET Workstation ID: [id number] Transcribed By: Self Edit Transcribed Date: 01/04/2025 09:11 ET Narrative 01/04/2025 9:31 AM EDT PROCEDURE: MRI of the abdomen with intravenous contrast. HISTORY: pancreas lesion, liver mass. TECHNIQUE: Multiplanar multisequence MRI of the abdomen with and without intravenous contrast. IV contrast dose: 20 mL intravenous Dotarem from a 20 mL vial with 0 mL discarded. COMPARISON: CT dated 11/06/2024 and 11/02/2019. FINDINGS: LOWER THORAX: Normal. LIVER: Lobulated T2 hyperintense, T1 hypointense lesion in the right lobe near the dome measuring up to 2.6 cm in diameter. 7 mm T2 hyperintense homogeneously in the central right lobe. The contrast-enhanced images obtained 30 seconds post contrast injection are significantly limited by motion and neither lesion is discernible, but on 90 second and more delayed post contrast images both lesions demonstrate homogeneous enhancement above background liver. The larger lesion at the dome demonstrates peripheral nodular enhancement on the comparison CT. Both lesions are stable dating back to a comparison CT on 11/02/2019. In and out of phase imaging demonstrates mild diffuse steatosis within an irregular area of sparing adjacent to the 2.6 cm lesion in the right lobe at the dome. The portal and hepatic veins are patent. BILIARY: Cholecystectomy. Common duct is prominent, measuring approximately 1 cm in diameter, similar to the comparison CT. The MRCP is limited by patient motion, but there is no visible ductal filling defect. PANCREAS: 7 mm nonenhancing lesion in the distal pancreatic body. This follows fat signal on all sequences. There is no associated enhancement. No ductal dilatation. SPLEEN: Normal. ADRENAL GLANDS: Normal. KIDNEYS: Left renal cortical cysts, with the largest exophytic from the lateral interpolar region measuring 2.6 cm in diameter. Visible portions of the collecting systems are normal. RETROPERITONEUM: No mass or lymphadenopathy. VASCULATURE: No aneurysm. BOWEL/MESENTERY: Scattered colonic diverticula. ABDOMINAL WALL: Visible portions are normal. BONES: No significant degenerative change. No visible bony lesion. OTHER: There is an elongated T2 hyperintense structure in the right adnexa, measuring up to 3.2 cm. This likely arises from the ovary. It is incompletely evaluated on this exam. The appearance is similar to the comparison CT. Procedure Note Peter Schneider MD - 10/07/2025 PROCEDURE: MRI of the abdomen with intravenous contrast. HISTORY: pancreas lesion, liver mass. TECHNIQUE: Multiplanar multisequence MRI of the abdomen with and withoutintravenous contrast. IV contrast dose: 20 mL intravenous Dotarem from a 20 mL vial with 0 mLdiscarded. COMPARISON: CT dated 11/06/2024 and 11/02/2019. FINDINGS: LOWER THORAX: Normal. LIVER: Lobulated T2 hyperintense, T1 hypointense lesion in the right lobenear the dome measuring up to 2.6 cm in diameter. 7 mm T2 hyperintensehomogeneously in the central right lobe. The contrast-enhanced imagesobtained 30 seconds post contrast injection are significantly limited bymotion and neither lesion is discernible, but on 90 second and moredelayed post contrast images both lesions demonstrate homogeneousenhancement above background liver. The larger lesion at the domedemonstrates peripheral nodular enhancement on the comparison CT. Bothlesions are stable dating back to a comparison CT on 11/02/2019. In and out of phase imaging demonstrates mild diffuse steatosis within anirregular area of sparing adjacent to the 2.6 cm lesion in the right lobeat the dome. The portal and hepatic veins are patent. BILIARY: Cholecystectomy. Common duct is prominent, measuringapproximately 1 cm in diameter, similar to the comparison CT. The MRCP islimited by patient motion, but there is no visible ductal fillingdefect. PANCREAS: 7 mm nonenhancing lesion in the distal pancreatic body. Thisfollows fat signal on all sequences. There is no associated enhancement.No ductal dilatation. SPLEEN: Normal. ADRENAL GLANDS: Normal. KIDNEYS: Left renal cortical cysts, with the largest exophytic from thelateral interpolar region measuring 2.6 cm in diameter. Visible portionsof the collecting systems are normal. RETROPERITONEUM: No mass or lymphadenopathy. VASCULATURE: No aneurysm. BOWEL/MESENTERY: Scattered colonic diverticula. ABDOMINAL WALL: Visible portions are normal. BONES: No significant degenerative change. No visible bony lesion. OTHER: There is an elongated T2 hyperintense structure in the rightadnexa, measuring up to 3.2 cm. This likely arises from the ovary. It isincompletely evaluated on this exam. The appearance is similar to thecomparison CT. IMPRESSION: 1. A small lesion in the distal pancreatic body demonstrates signalcharacteristics compatible with a small (benign) lipoma. This is stabledating back to at least 2019. 2. 2 enhancing liver lesions. Characterization on this study is limited,as early postcontrast images are significantly limited by motion.However, both lesions are suspected to represent hemangiomas on review ofcomparison CT studies, and notably, both lesions are stable dating back toa CT dated 11/02/2019. 3. Incompletely evaluated right ovarian cyst. Consider furtherevaluation with pelvic ultrasound. -------- FINAL REPORT -------- Dictated By: Peter Schneider Dictated Date: 01/04/2025 09:11 ET Assigned Physician: Peter Schneider Reviewed and Electronically Signed By: Peter Schneider Signed Date: 01/04/2025 09:31 ET Workstation ID: [id number] Transcribed By: Self Edit Transcribed Date: 01/04/2025 09:11 ET Sherrie Fields MD IM MRI PROCEDURES Final Re sult * (ABNORMAL) Microalbumin creatinine urine ratio (12/29/2024 12:29 PM EDT) Creatinine, Urine 185.0 mg/dL LAB CHEMISTRY METHOD 12/29/2024 4:48 PM EDT [facility] Microalb, Ur 40.7(H) 0.0 - 29.0 mg/L LAB CHEMISTRY METHOD 12/29/2024 4:48 PM EDT [facility] Microalb/Crea t Ratio 22 <30 mg/g creat LAB CHEMISTRY METHOD 12/29/2024 4:48 PM EDT [facility] Urine Urine specimen obtained by clean catch procedure / Unknown Non-blood Collection / Unknown 12/29/2024 12:29 PM EDT 12/29/2024 12:29 PM EDT Sherrie Fields MD LAB URINE ORDERABLES Final Result [facility] [address] [place] [address], [place] [phone] * Hemoglobin A1c (12/29/2024 10:22 AM EDT) Hemoglobin A1C 6.2 <6.5 % LAB CHEMISTRY METHOD 12/29/2024 1:40 PM EDT [facility] Mean Bld Glu Estim. 131 mg/dL LAB CHEMISTRY METHOD 12/29/2024 1:40 PM EDT [facility] Blood Venous blood specimen / Unknown Venipuncture / Unknown 12/29/2024 10:22 AM EDT 12/29/2024 10:22 AM EDT Sherrie Fields MD LAB BLOOD ORDERABLES Final Result [facility] [address] [place] [address], [place] [phone] * ECG-Annotated (11/08/2024) Provider Onbase ECG ORDERABLES Final Result * CT Abdomen Pelvis w Contrast (11/06/2024 4:44 PM EDT) Anatomical Region Laterality Modality Body Computed Tomogra phy 11/06/2024 5:26 PM EDT Impressions 11/06/2024 5:26 PM EDT 1. No acute findings. 2. Peripherally enhancing mass in the dome of the liver possibly a hemangioma but follow-up nonemergent multiphase hepatic CT or MRI recommended for further evaluation. 3. 6 mm low-attenuation lesion in the tail of the pancreas which is too small to be fully characterized and can also be further evaluated with multiphase CT or MRI. 4. Simple right ovarian cyst in left ovarian cyst with punctate calcification. 5. Additional nonacute findings as described. This document has been electronically signed by: Maria Isabel Villarreal MD on 11/06/2024 17:26:53 Narrative 11/06/2024 5:26 PM EDT INDICATION: Abdominal pain, acute, nonlocalized CT abdomen and pelvis with contrast Comparison: None provided Findings: No consolidation or pleural effusion. Minimal right basilar atelectasis/scarring. The gallbladder is surgically absent. No intrahepatic biliary ductal dilatation. Common bile duct at upper limit of normal post cholecystectomy. There is a 2.3 cm x 2.7 cm peripherally enhancing mass in the dome of the liver. This may represent a hemangioma but is not fully characterized on this study. Low-attenuation of the liver suggestive of steatosis. The spleen is unremarkable. There is a 6 mm round hypodense lesion which possibly has fat attenuation but is incompletely evaluated. Otherwise the pancreas is unremarkable. Adrenal glands are normal. Enhancement of bilateral kidneys with no stones along the course of the ureters and no hydronephrosis or hydroureter. 1.9 cm cyst in lower pole left kidney laterally and a 2.4 cm exophytic cyst of left kidney laterally. No bowel obstruction, pneumoperitoneum, or pneumatosis. No free fluid. No loculated fluid collection. The appendix is unremarkable. Urinary bladder is unremarkable. Uterus is present and is small. There is a 2.9 cm right ovarian cyst and 2.4 cm left ovarian cyst with punctate calcification. Atherosclerotic vascular disease with no aneurysm of the abdominal aorta. No acute fracture. Procedure Note Maria Isabel Villarreal MD - 11/06/2024 INDICATION: Abdominal pain, acute, nonlocalized CT abdomen and pelvis with contrast Comparison: None provided Findings: No consolidation or pleural effusion. Minimal right basilar atelectasis/scarring. The gallbladder is surgically absent. No intrahepatic biliary ductal dilatation. Common bile duct at upper limit of normal postcholecystectomy. There is a 2.3 cm x 2.7 cm peripherally enhancing mass in the dome ofthe liver. This may represent a hemangioma but is not fully characterized on this study. Low-attenuation of the liver suggestive of steatosis. The spleen is unremarkable. There is a 6 mm round hypodense lesion which possibly has fat attenuation but is incompletely evaluated. Otherwise the pancreas is unremarkable. Adrenal glands are normal. Enhancement of bilateral kidneys with nostones along the course of the ureters and no hydronephrosis or hydroureter. 1.9 cm cyst in lower pole left kidney laterally and a 2.4 cm exophytic cyst of left kidney laterally. No bowel obstruction, pneumoperitoneum, or pneumatosis. No free fluid. No loculated fluid collection. The appendix isunremarkable. Urinary bladder is unremarkable. Uterus is present and is small. Thereis a 2.9 cm right ovarian cyst and 2.4 cm left ovarian cyst with punctate calcification. Atherosclerotic vascular disease with no aneurysm of the abdominalaorta. No acute fracture. IMPRESSION: 1. No acute findings. 2. Peripherally enhancing mass in the dome of the liver possibly a hemangioma but follow-up nonemergent multiphase hepatic CT or MRI recommended for further evaluation. 3. 6 mm low-attenuation lesion in the tail of the pancreas which is too small to be fully characterized and can also be further evaluated with multiphase CT or MRI. 4. Simple right ovarian cyst in left ovarian cyst with punctate calcification. 5. Additional nonacute findings as described. This document has been electronically signed by: Maria Isabel Villarreal MD on 11/06/2024 17:26:53 Sonam Palmer MD IMG CT PROCEDURES Final Result * XR Chest 1 View (11/06/2024 3:12 PM EDT) Anatomical Region Laterality Modality Body Radiographic Estelita ging 11/06/2024 3:20 PM EDT Impressions 11/06/2024 3:20 PM EDT No acute findings. -------- FINAL REPORT -------- Dictated By: Peter Schneider Dictated Date: 11/06/2024 15:20 ET Assigned Physician: Peter Schneider Reviewed and Electronically Signed By: Peter Schneider Signed Date: 11/06/2024 15:20 ET Workstation ID: [id number] Transcribed By: Self Edit Transcribed Date: 11/06/2024 15:20 ET Narrative 11/06/2024 3:20 PM EDT PROCEDURE: AP chest radiograph. HISTORY: Abd pain, unspecified. COMPARISON: None. FINDINGS: Mild degenerative changes of the spine and shoulders. Lungs, pleural spaces, pulmonary vasculature, and cardiomediastinal contours are normal. Procedure Note Peter Schneider MD - 11/06/2024 PROCEDURE: AP chest radiograph. HISTORY: Abd pain, unspecified. COMPARISON: None. FINDINGS: Mild degenerative changes of the spine and shoulders. Lungs, pleuralspaces, pulmonary vasculature, and cardiomediastinal contours arenormal. IMPRESSION: No acute findings. -------- FINAL REPORT -------- Dictated By: Peter Schneider Dictated Date: 11/06/2024 15:20 ET Assigned Physician: Peter Schneider Reviewed and Electronically Signed By: Peter Schneider Signed Date: 11/06/2024 15:20 ET Workstation ID: [id number] Transcribed By: Self Edit Transcribed Date: 11/06/2024 15:20 ET us Sonam Palmer MD IMG XR PROCEDURES Final Result * Troponin I High Sensitivity (11/06/2024 3:09 PM EDT) [facility] High Sensitivity Troponin I 10 <=54 ng/L LAB CHEMISTRY METHOD 11/06/2024 4:07 PM EDT [facility] Blood Venous blood specimen / Unknown Venipuncture / Unknown 11/06/2024 3:09 PM EDT 11/06/2024 3:41 PM EDT Narrative [facility] - 11/06/2024 4:07 PM EDT High levels of biotin in samples may falsely decrease hsTroponin values. Use caution when interpreting hsTroponin results in patients taking biotin who exhibit renal impairment (eGFR <60) or in patients taking more than 20 mg/day of biotin. us Sonam Palmer MD LAB BLOOD ORDERABLES Final Resul t [facility] [address] [place] [address], * (ABNORMAL) CBC auto differential (11/06/2024 3:09 PM EDT) [facility] WBC 10.7 4.8 - 10.8 K/mcL LAB HEMETOLOGY [facility] RBC 4.40 3.80 - 4.80 M/mcL LAB HEMETOLOGY METHOD 11/06/2024 3[facility]47 [facility] Hemoglobin 11.8 11.5 - 16.0 g/dL LAB HEMETOLOGY METHOD 11/06/2024 3:47 [facility] Hematocrit 38.9 35.0 - 47.0 % LAB HEMETOLOGY METHOD 11/06/2024 3:47 [facility] MCV 87.6 79.0 - 98.0 FL LAB HEMETOLOGY METHOD 11/06/2024 3:47 [facility] MCH 26.6(L) 27.0 - 32.0 pcg LAB HEMETOLOGY METHOD 11/06/2024 3:47 PM [facility] MCHC 30.3(L) 32.0 - 37.0 g/dL LAB HEMETOLOGY METHOD 11/06/2024 3:47 PM [facility] RDW 13.7 11.0 - 15.0 % LAB HEMETOLOGY METHOD 11/06/2024 3:47 PM [facility] Platelets 237 130 - 400 K/mcL LAB HEMETOLOGY METHOD 11/06/2024 3:47 PM [facility] MPV 10.5 7.0 - 11.0 FL LAB HEMETOLOGY METHOD 11/06/2024 3:[facility] NRBC 0.0 <1.0 % LAB HEMETOLOGY METHOD 11/06/2024 3:47 [facility] NRBC Absolute 0.00 <0.10 K/mcL LAB HEMETOLOGY METHOD 11/06/2024 3:47 PM [facility] Neutrophils Relative 72.4 % LAB HEMETOLOGY METHOD 11/06/2024 3:47 PM [facility] Lymphocytes Relative 18.9 % LAB HEMETOLOGY METHOD 11/06/2024 3:47 PM [facility] Monocytes Relative 6.8 % LAB HEMETOLOGY METHOD 11/06/2024 3:47 PM [facility] Eosinophils Relative 0.8 % LAB HEMETOLOGY METHOD 11/06/2024 3:47 PM [facility] Basophils Relative 0.3 % LAB HEMETOLOGY METHOD 11/06/2024 3:47 PM [facility] Immature Granulocytes Relative 0.8 % LAB HEMETOLOGY METHOD 11/06/2024 3:47 PM [facility] Neutrophils Absolute 7.77(H) 1.50 - 7.00 K/mcL LAB HEMETOLOGY METHOD 11/06/2024 3:47 PM [facility] Lymphocytes Absolute 2.03 1.00 - 5.00 K/mcL LAB HEMETOLOGY METHOD 11/06/2024 3:47 PM [facility] Monocytes Absolute 0.73 0.20 - 1.00 K/mcL LAB HEMETOLOGY METHOD 11/06/2024 3:47 PM [facility] Eosinophils Absolute 0.09 0.00 - 0.50 K/mcL LAB HEMETOLOGY METHOD 11/06/2024 3:47 PM [facility] Basophils Absolute 0.03 0.00 - 0.20 K/mcL LAB HEMETOLOGY METHOD 11/06/2024 3:47 PM [facility] Immature Granulocytes Absolute 0.09(H) 0.00 - 0.03 K/mcL LAB HEMETOLOGY METHOD 11/06/2024 3:47 PM [facility] Blood Venous blood specimen / Unknown Venipuncture / Unknown 11/06/2024 3:09 PM EDT 11/06/2024 3:40 PM EDT us Sonam Palmer MD LAB BLOOD ORDERABLES Final Resul t Performing Organization Address City/[facility]/ZIP Co de Phone Number [facility] [address] [place] [address], [place] [phone] * Lipase (11/06/2024 3:09 PM EDT) Lipase 27 13 - 75 unit/L LAB CHEMISTRY METHOD 11/06/2024 4:07 PM EDT [facility] Blood Venous blood specimen / Unknown Venipuncture / Unknown 11/06/2024 3:09 PM EDT 11/06/2024 3:41 PM EDT us Sonam Palmer MD LAB BLOOD ORDERABLES Final Resul t Performing Organization Address [facility] de Phone Number [facility] [address] [place] [address], [place] [phone] * Comprehensive metabolic panel (11/06/2024 3:09 PM EDT) Sodium 138 133 - 145 mmol/L LAB CHEMISTRY METHOD 11/06/2024 4:07 PM [facility] Potassium 4.0 3.5 - 5.5 mmol/L LAB CHEMISTRY METHOD 11/06/2024 4:07 PM [facility] Chloride 103 96 - 110 mmol/L LAB CHEMISTRY METHOD 11/06/2024 4:07 PM [facility] CO2 29 21 - 32 mmol/L LAB CHEMISTRY METHOD 11/06/2024 4:07 PM [facility] Anion Gap 6 3 - 11 LAB CHEMISTRY METHOD 11/06/2024 4:07 PM [facility] Glucose 91 70 - 100 mg/dL LAB CHEMISTRY METHOD 11/06/2024 4:07 PM [facility] BUN 12 5 - 25 mg/dL LAB CHEMISTRY METHOD 11/06/2024 4:07 PM [facility] Creatinine 0.71 0.50 - 1.10 mg/dL LAB CHEMISTRY METHOD 11/06/2024 4:07 PM [facility] eGFR 90 >=60 mL/min/1. 73m2 LAB CHEMISTRY METHOD 11/06/2024 4:07 PM [facility] Comment:Calculation based on the Chronic Kidney Disease Epidemiology Collaboration (CKD-EPI) equation refit without adjustment for race. BUN/Creatinine Ratio 16.9 LAB CHEMISTRY METHOD 11/06/2024 4:07 PM [facility] Calcium 8.9 8.5 - 10.5 mg/dL LAB CHEMISTRY METHOD 11/06/2024 4:07 PM [facility] AST (SGOT) 16 10 - 42 unit/L LAB CHEMISTRY METHOD 11/06/2024 4:07 PM [facility] ALT (SGPT) 29 10 - 60 unit/L LAB CHEMISTRY METHOD 11/06/2024 4:07 PM [facility] Alkaline Phosphatase 115 42 - 121 unit/L LAB CHEMISTRY METHOD 11/06/2024 4:07 PM [facility] Total Protein 6.6 6.0 - 8.0 g/dL LAB CHEMISTRY METHOD 11/06/2024 4:07 PM [facility] Albumin 3.4 3.2 - 5.0 g/dL LAB CHEMISTRY METHOD 11/06/2024 4:07 PM [facility] Total Bilirubin 0.3 0.0 - 1.4 mg/dL LAB CHEMISTRY METHOD 11/06/2024 4:07 PM [facility] Blood Venous blood specimen / Unknown Venipuncture / Unknown 11/06/2024 3:09 PM EDT 11/06/2024 3:41 PM EDT us Sonam Palmer MD LAB BLOOD ORDERABLES Final Resul t [facility] [address] [place] [address], [place] [phone] * Urinalysis with reflex microscopic (11/06/2024 3:04 PM EDT) Specific Lyndon Urine 1.020 1.003 - 1.030 LAB URINALYSIS - AUTOMATED METHOD 11/06/2024 4:37 PM EDT [facility] pH, Urine 6.5 5.0 - 8.0 pH LAB URINALYSIS - AUTOMATED METHOD 11/06/2024 4:[facility] Leukocytes, Urine Negative Negative LAB URINALYSIS - AUTOMATED METHOD 11/06/2024 4:37 PM [facility] Nitrite, Urine Negative Negative LAB URINALYSIS - AUTOMATED METHOD 11/06/2024 4:37 PM [facility] Protein, Urine Negative <=Trace mg/dL LAB URINALYSIS - AUTOMATED METHOD 11/06/2024 4:37 PM [facility] Glucose, Urine Negative Negative mg/dL LAB URINALYSIS - AUTOMATED METHOD 11/06/2024 4:37 PM [facility] Ketones, Urine Negative Negative mg/dL LAB URINALYSIS - AUTOMATED METHOD 11/06/2024 4:37 PM [facility] Urobilinogen, Urine 0.2 0.2 - 1.0 mg/dL LAB URINALYSIS - AUTOMATED METHOD 11/06/2024 4:37 PM [facility] Bilirubin, Urine Negative Negative LAB URINALYSIS - AUTOMATED METHOD 11/06/2024 4:37 PM [facility] Blood, Urine Negative Negative LAB URINALYSIS - AUTOMATED METHOD 11/06/2024 4:37 PM [facility] Urine Urine specimen obtained by clean catch procedure / Unknown Non-blood Collection / Unknown 11/06/2024 3:04 PM EDT 11/06/2024 3:41 PM EDT us Sonam Palmer MD LAB URINE ORDERABLES Final Resul t Performing Organization Address City/[facility]/ZIP Co de Phone Number [facility] [address] [place] [address], [place] [phone] * 12-Lead ECG (11/06/2024 2:57 PM EDT) Ventricular Rate ECG 82 BPM GEMUSE Atrial Rate 82 BPM GEMUSE P-R Interval 140 ms GEMUSE QRS Duration 80 ms GEMUSE Q-T Interval 374 ms GEMUSE QTc 436 ms GEMUSE P Wave Manning -28 degrees GEMUSE R Manning 13 degrees GEMUSE T Manning 60 degrees GEMUSE ECG Interpretation Normal sinus rhythm When compared with ECG of 22-APR-2022 16:36, No significant change was found Confirmed by NILAM BAKER ([id number]) on 11/08/2024 12:26:51 AM GEMUSE 11/06/2024 2:57 PM EDT 11/08/2024 12:26 AM EDT us Sonam Palmer MD ECG ORDERABLES Final Result Performing Organization Address [facility] Co de Phone Number GEMUSE * Lipid panel with reflex to direct LDL (04/14/2024 9:37 AM EST) Cholesterol 134 0 - 200 mg/dL LAB CHEMISTRY METHOD 04/14/2024 12:14 PM [facility] Triglycerides 80 0 - 150 mg/dL LAB CHEMISTRY METHOD 04/14/2024 12:14 PM [facility] HDL 56 >=40 mg/dL LAB CHEMISTRY METHOD 04/14/2024 12:14 PM [facility] LDL Calculated 62 0 - 100 mg/dL LAB CHEMISTRY METHOD 04/14/2024 12:14 PM [facility] VLDL Cholesterol Dayron 16 mg/dL LAB CHEMISTRY METHOD 04/14/2024 12:14 PM EST [facility] Non HDL Chol. (LDL+VLDL) 78 <145 mg/dL LAB CHEMISTRY METHOD 04/14/2024 12:14 PM EST [facility] Chol/HDL Ratio 2.4 0.0 - 4.4 LAB CHEMISTRY METHOD 04/14/2024 12:14 PM EST [facility] Blood Venous blood specimen / Unknown Venipuncture / Unknown 04/14/2024 9:37 AM EST 04/14/2024 9:37 AM EST Sherrie Fields MD LAB BLOOD ORDERABLES Final Result [facility] [address] [place] [address], [place] [phone] * Falls Risk Assessment (10/01/2023) Falls Risk Assessment abstracted Historical Provider HEALTH MAINTENANCE Final Result * Hm Depression Screening (06/03/2023) Depression Screening abstracted Historical Provider HEALTH MAINTENANCE Final Result * ALFONSO SCREENING DIGITAL (12/11/2022 11:03 AM EDT) Anatomical Region Laterality Modality Mammography 12/06/2022 2:29 PM EDT Narrative 12/11/2022 11:03 AM EDT [facility] Diagnostic Imaging Department [address] [place] [id number] Patient: GILDA PEARL /Age/Sex: 1950 - 72 - F Unit#: [id number] Location/Status: SPDIMAM/REG CLI Mnemonic/Ordering Site: [facility] Ordering Physician: MIKE FIELDS MD [facility] Screening Digital - 12/06/22 - 1501 Report Status:Signed EXAM: [facility] Screening Digital EXAM DATE AND TIME: 12/06/2022 3:01 PM HISTORY: Routine screening mammogram COMPARISON: 11/07/2021, 12/13/2019 TECHNIQUE: Bilateral digital breast tomosynthesis was performed in the CC and MLO projections. Computer aided detection with [employer] 3D 3.1 was employed. TISSUE DENSITY: b. There are scattered areas of fibroglandular density. FINDINGS: No suspicious masses, grouped microcalcifications, or areas of architectural distortion are seen. The skin and vascularity are unremarkable. IMPRESSION: Stable mammographic appearance of the breasts. No evidence of malignancy is seen. A negative mammogram in the presence of a clinically suspicious palpable abnormality does not preclude the possibility of malignancy or alter the indications for biopsy. BI-RADS: Category 1: Negative RECOMMENDATION(S): 1: Routine screening mammogram BILATERAL in 1 year. Dictating Physician: HERON VALENCIA MD Electronically Signed by: HERON VALENCIA MD Dic Date/Time: 12/11/22 110 Sign date/Time: 12/11/221102 Procedure Note Heron Valencia MD - 05/06/2023 [facility] Diagnostic Imaging Department [address] [place] [id number] Patient: GILDA PEARL/Age/Sex: 1950 - 72 - F Unit#: [id number] Location/Status: SPDIMAM/REG CLI Mnemonic/Ordering Site: [facility] Ordering Physician: MIKE FIELDS MD [facility] Screening Digital - 12/06/22 - 1501 Report Status:Signed EXAM: [facility] Screening Digital EXAM DATE AND TIME: 12/06/2022 3:01 PM HISTORY: Routine screening mammogram COMPARISON: 11/07/2021, 12/13/2019 TECHNIQUE: Bilateral digital breast tomosynthesis was performed in the CCand MLO projections. Computer aided detection with [employer] 3D 3.1was employed. TISSUE DENSITY: b. There [...] MD IMG BI PROCEDURES Final Result * [facility] DEXA AXIAL SKELETON (12/09/2022 7:43 AM EDT) Anatomical Region Laterality Modality Mammography 12/06/2022 2:32 PM EDT Narrative 12/09/2022 7:43 AM EDT [facility] Diagnostic Imaging Department [address] [place] [address] [id number] Patient: GILDA PEARL /Age/Sex: 1950 - 72 - F Unit#: [id number] [facility] Ordering Physician: MIKE FIELDS MD [facility] Dexa Axial Skeleton - 12/06/22 - 0307 Report Status:Signed HISTORY: The patient is a 72-year-old postmenopausal female with clinical concern for metabolic bone disease. FINDINGS: Dual [...] 103% of that of age matched controls. This yields a T-score of -0.6 and a Z-score of 0.2 and there is therefore no evidence of osteoporosis or osteopenia here. IMPRESSION: 1. Osteoporosis. 2. FRAX analysis yields a 10-year probability of major osteoporotic fracture of 7.0% and a 10-year probability of hip fracture of 0.8%. Code 45428 Dictating Physician: DUANE BEAN MD Electronically Signed by: DUANE BEAN MD Dic Date/Time: 12/09/2242 Sign date/Time: 12/09/22742 Procedure Note Duane Bean MD - 05/06/2023 [facility] Diagnostic Imaging Department [address] [place] [address] [id number] Patient: PEARLGILDA./Age/Sex: 1950 - 72 - F Unit#: [id number] Location/Status: [facility] CLI Mnemonic[facility] Ordering Physician: MIKE FIELDS MD [facility] Dexa Axial Skeleton - 12/06/22 - 7 Report Status:Signed HISTORY: The patient is a [...] density of the femurs bilaterally is 0.935 gm/dc3jmrpr is 93% of that of young normals and 103% of that of age matched controls.This yields a T-score of -0.6 and a Z-score of 0.2 and there is therefore noevidence of osteoporosis or osteopenia here. IMPRESSION: 1. Osteoporosis. 2. FRAX analysis yields a 10-year probability of major osteoporoticfracture of 7.0% and a 10-year probability of hip fracture of 0.8%. Code 51423 Dictating Physician: DUANE BEAN MD Electronically Signed by: DUANE BEAN MD Dic Date/Time: 12/09/22741 Sign date/Time: 12/09/22742 Result [facility] Mike Fields MD IMG BI PROCEDURES Final Result * Colonoscopy (11/14/2022) [facility] Colonoscopy no interpretation , abstracted Anatomical Region Laterality Modality Other [facility] Provider HEALTH MAINTENANCE Final Result * Diabetes Eye Exam (02/13/2021) [facility] Diabetes: Annual Retina Eye Exam abstracted Result [facility] Provider HEALTH MAINTENANCE Final Result * Hepatitis C Screening (04/14/2018) [facility] Hepatitis C Screening abstracted Result [facility] Provider HEALTH MAINTENANCE Final Result * Diabetes Foot Exam (04/08/2018) [facility] Diabetes: Annual Foot Exam abstracted [facility] Provider HEALTH MAINTENANCE Final Result from Last 3 Months or Most Recently Relevant to Health Maintenance Additional Health Concerns Active Problems Noted Date Diagnosed Date Autogenerated Problem 12/27/[address] 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
== END 2025-01-21 12:08 | disposition home or self-care (01) ==
LOC: HO.PMC 11:23
PROVIDERS: PCP Internal Medicine; Visit Provider Registered Nurse Emergency
DX: M17.0 Bilateral primary osteoarthritis of knee (principal); M25.561 Pain in right knee; M25.562 Pain in left knee; G89.4 Chronic pain syndrome
CPT/HCPCS: 99213; G2211

== ENCOUNTER → 2025-01-21 11:23 | Outpatient (BNVA) | payer OTHER, SELFPAY | PROVIDERS: PCP Internal Medicine; Visit Provider Registered Nurse Emergency | DX: M25.561 Pain in right knee (principal); M25.562 Pain in left knee; M17.0 Bilateral primary osteoarthritis of knee; G89.4 Chronic pain syndrome; Z98.890 Other specified postprocedural states | CPT/HCPCS: 99212 ==

== ENCOUNTER 2025-02-16 13:31 | Outpatient (AMB) | payer OTHER, SELFPAY ==
[2025-02-16 13:38] VITALS: BP 160/68; PULSE 80; RESP 16; O2SAT 98; BMI 42.0
--- NOTE | 2025-02-16 13:38 | A.OFFVIS_ITS ---
Vital Signs 02/16/25 13:38 Height 5 ft Weight 215 lb BMI 42.0 BP 160/68 H Blood Pressure Location Lt brachial Position Sitting Respiration 16 Pulse 80 Pulse Source Pulse Oximeter Pulse Oximetry (%) 98 Oxygen Delivery Method Room Air Intake Visit Reasons: BILATERAL KNEE PAIN Pickle Solution Maker Required: No Allergies morphine Allergy (Intermediate, Verified 02/16/25 13:40) Nausea pregabalin (From Lyrica) Allergy (Intermediate, Verified 02/16/25 13:40) Nausea Peanut Butter Allergy (Mild, Verified 02/16/25 13:40) Rash mite-Dermatophagoides farinae, juanito (dust mite - [place]) Allergy (Unknown, Verified 02/16/25 13:40) Unknown HPI Comments Details: Gilda is very pleasant 75 years old female who is suffering from left knee osteoarthritis and left knee pain. She went for genicular nerve block on the left and after that radiofrequency ablation of the genicular nerves and radiofrequency ablation did not help her pain. I offered the patient to perform left diagnostic femoral nerve block under minimal oral sedation with lorazepam, patient has lorazepam at home, to see if peripheral nerve stimulation of the femoral nerve will help her pain. If so I will consider sprint PNS versus chronic PNS for this patient's pain. Prior: The patient is a 75-year-old female presenting with left knee pain. She underwent left genicular RFA in October, which did not alleviate her symptoms. The pain remains unchanged, with occasional numbness extending from the knee downwards. The patient also reports back pain, which radiates from her hips to her leg. The pain in the knee is sometimes stronger than before the procedure, but at times it is similar to the pre-procedure pain. She also complains of right knee pain, chronic in nature. - Onset: Pain persists since the nerve burning procedure in October. - Quality: Pain is sometimes stronger, sometimes similar to pre-procedure levels. - Location: Left knee, with numbness extending from the knee downwards. - Radiation: Back pain radiates from hips to leg. - Exacerbating factors: No specific factors mentioned. - Relieving factors: Initial diagnostic nerve block provided temporary relief. - Affect: Not explicitly discussed. - Analgesia: Current pain level is 8/10 in the left knee. - Adverse Effects: Not explicitly discussed. - Activities of Daily Living: Pain impacts mobility, but specific activities are not detailed. - Aberrant Drug Related Behaviors: Not explicitly discussed. [facility] Medical History Anxiety Fibromyalgia Osteoarthritis OAB (overactive bladder) Osteoporosis GERD (gastroesophageal reflux disease) Rhinitis Neck pain Bilateral hip pain Low back pain Vitamin D deficiency Low iron Gastroparesis COPD (chronic obstructive pulmonary disease) Glaucoma Depression CKD (chronic kidney disease) Asthma HTN (hypertension) HLD (hyperlipidemia) Diabetes Chronic knee pain Surgical History H/O eye surgery H/O bilateral cataract extraction History of bladder surgery Hx of cholecystectomy Social History Are you a primary home care and home health aides teacher to a significant other at home: No Do you presently have visiting nurse or other home services: Yes ([employer] daily ) Patient Tobacco Use Status: Former Tobacco user Tobacco use type: Cigarette Advance Directives Date on File: 10/21/08 Review of Systems Const All systems reviewed & are unremarkable except as noted in HPI and below Physical Exam Vital Signs: Last Vital Signs Pulse 80 02/16/25 13:38 Resp 16 02/16/25 13:38 BP 160/68 H 02/16/25 13:38 Pulse Ox 98 02/16/25 13:38 Oxygen Delivery Method Room Air 02/16/25 13:38 BMI result Body Mass Index 42.0 General: awake, alert, oriented. Answers questions appropriately. Fully engaged in examination. Skin: warm, dry, intact HEENT: Normocephalic. Hearing intact. Cardiac: External chest normal in appearance. Respiratory: No cough, audible wheezing or stridor. Abdomen: without gross distension. MS: No obvious swelling or deformities. Able to transition from sit to stand unassisted. Ambulates with bilaterally normal heel strike and toe off Neurological: Oriented to person, place, time and situation. Thought process intact. Psychiatric: Appropriate mood and affect. Good judgment and insight. Assessment & Plan Assessment & Plan (1) Osteoarthritis of knees, bilateral: Code(s): M17.0 - Bilateral primary osteoarthritis of knee Category: Medical (2) Bilateral knee pain: Code(s): M25.561 - Pain in right knee; M25.562 - Pain in left knee Category: Medical (3) Chronic pain syndrome: Code(s): G89.4 - Chronic pain syndrome Category: Medical Plan Genicular nerve block resulted in significant pain improvement however the following radiofrequency ablation was not successful treat the patient's pain. I offered her today diagnostic femoral nerve block as the prerequisite for the peripheral nerve stimulation of the left femoral nerve. Patient agreed to go for the procedure, she will take her lorazepam 30 minutes before the procedure. Coding Level of Care Code Est Pt Level 3 (61539) Diagnoses Osteoarthritis of knees, bilateral M17.0 Bilateral knee pain M25.561; M25.562 Chronic pain syndrome G89.4
--- OUTSIDE RECORDS SUMMARY | 2025-02-17 01:33 | XMS_ITS | Patient Health Record ---
Author Organization [facility] Address [address] [place] [id number] Care Team Providers Care Psychic Reader Name Role Phone Abner Norton Jr [phone] Reason For Referral No Information Plan Of Treatment No Information
== END 2025-02-16 13:54 | disposition home or self-care (01) ==
LOC: HO.PMC 13:32
PROVIDERS: PCP Internal Medicine; Visit Provider Anesthesiology
DX: M17.0 Bilateral primary osteoarthritis of knee (principal); M25.561 Pain in right knee; M25.562 Pain in left knee; G89.4 Chronic pain syndrome
CPT/HCPCS: 99213

== ENCOUNTER → 2025-02-16 13:31 | Outpatient (BNVA) | payer OTHER, SELFPAY | PROVIDERS: PCP Internal Medicine; Visit Provider Anesthesiology | DX: M25.561 Pain in right knee (principal); M25.562 Pain in left knee; M17.0 Bilateral primary osteoarthritis of knee; G89.4 Chronic pain syndrome | CPT/HCPCS: 99212 ==